=== PATIENT | male | born 1940 | race Caucasian/White ===

== ENCOUNTER 2016-10-04 13:47 | Inpatient (IN) ==
[2016-10-04] MEDS ORDERED: 0.9 % Sodium Chloride 1,000 ML IVC ONE (14:04)
--- NOTE | 2016-10-04 14:23 | Emergency Department Note ---
Disposition Clinical Impression: Atrial fibrillation with RVR, GUILLAUME (acute kidney injury), Elevated troponin Diarrhea Qualifiers: Diarrhea type: unspecified type Qualified Code(s): R19.7 - Diarrhea, unspecified Disposition: Admitted As Inpatient Condition: Good Chest Pain HPI - General Chief Complaint: ED Chest Pain Stated Complaint: a-fib with RVR Time Seen by Provider: 10/04/16 13:54 Source: patient, family Limitations: no limitations Vital Signs Reviewed: Yes Nursing Notes Reviewed: Yes - History of Present Illness Severity scale (1-10): 0 - Related Data Home Medications Medication Instructions Recorded Confirmed Allopurinol [Zyloprim 300 MG] 300 mg PO DAILY 12/01/15 10/04/16 Aspirin 81 mg PO DAILY 12/01/15 10/04/16 Furosemide [Lasix] 40 mg PO DAILY 12/01/15 10/04/16 Lisinopril [Zestril] 20 mg PO DAILY 12/01/15 10/04/16 Warfarin [Coumadin] 3 mg PO MOWEFR 12/01/15 10/04/16 Albuterol Sulfate [Proair Hfa] 2 puff IH Q4H PRN 10/04/16 10/04/16 Amiodarone [Cordarone] 200 mg PO DAILY 10/04/16 10/04/16 Fluticasone/Salmeterol [Advair Hfa 2 puff IH BID 10/04/16 10/04/16 115-21 Mcg Inhaler] Metoprolol Succinate 100 mg PO DAILY 10/04/16 10/04/16 Oxygen 2 l NS AD 10/04/16 10/04/16 Tramadol HCl [Ultram] 50 mg PO Q6H PRN 10/04/16 10/04/16 Warfarin [Coumadin] 1.5 mg PO SUTUTHSA 10/04/16 10/04/16 Allergies Allergy/AdvReac Type Severity Reaction Status Date / Time No Known Allergies Allergy Verified 09/13/16 00:44 Chest Pain PMH - Past Medical History Medical history: Reports: atrial fibrillation, COPD, CVA, DVT, hyperlipidemia, hypertension, myocardial infarction Surgical history: Reports: pacemaker/AICD Psychiatric history: Reports: no psych history - Social History Smoking Status: Former smoker Alcohol use: Reports: none Drug use: Reports: none Physical Exam - General Limitations: no limitations Course Vital Signs Temperature 99.1 F 10/04/16 13:57 Pulse Rate 164 10/04/16 13:57 Respiratory Rate 24 10/04/16 13:57 Blood Pressure 99/79 10/04/16 13:57 O2 Sat by Pulse Oximetry 97 10/04/16 13:57 Temperature 99.1 F 10/04/16 13:57 Pulse Rate 101 10/04/16 15:20 Respiratory Rate 20 10/04/16 15:20 Blood Pressure 92/68 10/04/16 15:20 O2 Sat by Pulse Oximetry 99 10/04/16 14:50 Oxygen Delivery Oxygen Delivery Nasal Cannula Chest Pain - MDM Narrative Medical decision making narrative: I examined this patient and my medical decision-making was reviewed with the SIGN LANGUAGE TEACHER/PA/Advanced Practice Nurse/Resident Physician. I agree with the documented findings, disposition and treatment plan as described except to the extent set forth below. Patient presents today from cardiology's office, he sees been feeling a little strange last couple days but denies any true chest pain. When he got to the cardiology office they noted him to was in A. fib with RVR. He has had a history of A. fib in the past. He is on medications for that. He does note that he has been having some diarrhea recently's I wonder if some of his medications or passing through quickly and not being absorbed especially since her sustained release. Were going to place an IV check his chest x-ray which was done in the outpatient setting start him on Cardizem here to see if we can slow down his heart rate repeat an EKG then he will need admission. Patient's in agreement with this plan. 1450 hrs.: Patient had EKG performed that shows atrial fibrillation rate is 151 QRS is 96 QTc is 364 no signs of acute distress ischemia comparison EKG had done in 2017 that in August and shows no changes except for rate except then he was having PVCs in a sinus rhythm. 1500 hrs.: Patient had some infiltration of his Cardizem into his IV site on the right. Nurses stopped the infusion restarted an IV on the left side is tolerating that well. She spoke with pharmacy and they said elevate the arm and put cool compresses on the area. Patient has no bleeding no other signs of trauma does compartments are soft on that arm and neurovascular is intact. 1551 hrs.: Repeat EKG, shows atrial fibrillation, rate is 98, 2 PVCs, QRS 104, QTC 410, low voltage throughout, no acute changes compared to the last except for rate. 1600 hrs.: Hospitalist accepted the patient. Patient still has atrial fib but has a slower rate with Cardizem. Patient's critical care time exclusive separately billable procedures is 30 minutes. - Lab Data Result diagrams: 10/04/16 15:04 10/04/16 14:18 Lab Results 10/04/16 10/04/16 10/04/16 Range/Units 14:18 14:18 14:18 WBC (4.3-11.1) K/mcL RBC (4.19-5.50) M/mcL Hgb (12.9-16.9) g/dL Hct (37.5-50.1) % MCV (83.0-100.0) fL MCH (28.0-33.3) pg MCHC (31.6-35.5) g/dL RDW (11.5-14.5) % Plt Count (140-400) K/mcL MPV (9.4-12.4) fL Immature Gran % (0-4) % Seg Neutrophils % % Lymphocytes % % Monocytes % % Eosinophils % % Basophils % % Neutrophils # (1.6-8.9) K/mcL Lymphocytes # (0.6-4.6) K/mcL Monocytes # (0.0-1.3) K/mcL Eosinophils # (0.0-0.6) K/mcL Basophils # (0.0-0.2) K/mcL PT 48.8 H* (9.4-12.1) Seconds INR 4.3 APTT 40.1 H (26.0-36.0) Seconds Sodium 144 (136-145) mEq/L Potassium 4.4 (3.5-4.5) mEq/L Chloride 104 (98-109) mEq/L Carbon Dioxide 31 H (19-29) mEq/L BUN 71 H (8-26) mg/dL Creatinine 2.16 H (0.72-1.25) mg/dL Est GFR ( Amer) 36 L (> 60) Est GFR (Non-Af Amer) 30 L (> 60) BUN/Creatinine Ratio 33 H (6-26) Glucose 110 H (70-99) mg/dL Calculated Osmolality 319 H (280-300) Calcium 9.2 (8.6-10.8) mg/dL Troponin I (0-0.03) ng/mL B-Natriuretic Peptide 1675 H (0-100) pg/mL Specimen Rejected 10/04/16 10/04/16 10/04/16 Range/Units 14:18 14:18 15:04 WBC 11.8 H (4.3-11.1) K/mcL RBC 4.32 (4.19-5.50) M/mcL Hgb 14.4 (12.9-16.9) g/dL Hct 44.8 (37.5-50.1) % MCV 103.7 H D (83.0-100.0) fL MCH 33.3 (28.0-33.3) pg MCHC 32.1 (31.6-35.5) g/dL RDW 14.0 (11.5-14.5) % Plt Count 121 L (140-400) K/mcL MPV 11.7 (9.4-12.4) fL Immature Gran % 0.3 (0-4) % Seg Neutrophils % 78.3 % Lymphocytes % 11.3 % Monocytes % 9.5 % Eosinophils % 0.3 % Basophils % 0.3 % Neutrophils # 9.2 H (1.6-8.9) K/mcL Lymphocytes # 1.3 (0.6-4.6) K/mcL Monocytes # 1.1 (0.0-1.3) K/mcL Eosinophils # 0.0 (0.0-0.6) K/mcL Basophils # 0.0 (0.0-0.2) K/mcL PT (9.4-12.1) Seconds INR APTT (26.0-36.0) Seconds Sodium (136-145) mEq/L Potassium (3.5-4.5) mEq/L Chloride (98-109) mEq/L Carbon Dioxide (19-29) mEq/L BUN (8-26) mg/dL Creatinine (0.72-1.25) mg/dL Est GFR ( Amer) (> 60) Est GFR (Non-Af Amer) (> 60) BUN/Creatinine Ratio (6-26) Glucose (70-99) mg/dL Calculated Osmolality (280-300) Calcium (8.6-10.8) mg/dL Troponin I 0.05 H* (0-0.03) ng/mL B-Natriuretic Peptide (0-100) pg/mL Specimen Rejected MCV Delta
[2016-10-04 14:34] LABS: Activated Partial Thrombo Time 40.1 Seconds (26.0-36.0)
[2016-10-04 14:37] LABS: INR 4.3
--- NOTE | 2016-10-04 14:37 | Emergency Department Note ---
Disposition Clinical Impression: Atrial fibrillation with RVR, GUILLAUME (acute kidney injury), Elevated troponin Diarrhea Qualifiers: Diarrhea type: unspecified type Qualified Code(s): R19.7 - Diarrhea, unspecified Disposition: Admitted As Inpatient Condition: Good Referrals: NO,PCP [Non-Partnered Physician] - Forms: ED Satisfaction Letter General Adult HPI - General Stated complaint: a-fib with RVR Time Seen by Provider: 10/04/16 13:54 Source: patient, family Limitations: no limitations Nursing Notes Reviewed: Yes Vital Signs Reviewed: Yes - History of Present Illness HPI Narrative: Patient sent from cardiology laboratory is getting his pacemaker interrogated. Patient's heart rate was 170s to 180s and A. fib RVR. Patient has been experiencing shortness of breath and fatigue for the last 5 days. Worse with walking. Patient is associated diarrhea. No abdominal pain. No blood or melanotic stools. No fevers. No chest pain. Pain Scale: 0 - Related Data Home Medications Medication Instructions Recorded Confirmed Allopurinol [Zyloprim 300 MG] 300 mg PO DAILY 12/01/15 12/01/15 Aspirin 81 mg PO DAILY 12/01/15 12/01/15 Carvedilol [Coreg] 25 mg PO BID 12/01/15 12/01/15 Furosemide [Lasix] 40 mg PO DAILY 12/01/15 12/01/15 Lisinopril [Zestril] 20 mg PO DAILY 12/01/15 12/01/15 Warfarin [Coumadin] 3 mg PO 1800 12/01/15 12/01/15 Allergies Allergy/AdvReac Type Severity Reaction Status Date / Time No Known Allergies Allergy Verified 09/13/16 00:44 Review of Systems: CONSTITUTIONAL: Weakness, fatigue No weight loss, fever, chills HEENT: Eyes: No visual changes. Ears, Nose, Throat: No hearing loss, difficulty talking or unable to swallow. SKIN: No rash or itching. CARDIOVASCULAR: No chest pain, chest pressure or chest discomfort. No palpitations or edema. RESPIRATORY: Shortness of breath No cough or sputum. GASTROINTESTINAL: No anorexia, nausea, vomiting or diarrhea. No abdominal pain or blood. GENITOURINARY: No burning on urination or hematuria. NEUROLOGICAL: No headache, dizziness, syncope, paralysis, ataxia, numbness or tingling in the extremities. No change in bowel or bladder control. MUSCULOSKELETAL: No muscle pain, back pain, joint pain or stiffness. Past Medical History - Past Medical History Medical history: Reports: atrial fibrillation, COPD, CVA, DVT, hyperlipidemia, hypertension, myocardial infarction Surgical history: Reports: pacemaker/AICD Psychiatric history: Reports: no psych history - Social History Smoking Status: Former smoker Smokeless Tobacco Status: No Alcohol use: Reports: none Drug use: Reports: none Physical Exam General appearance: NAD, conversant Eyes: anicteric sclerae, moist conjunctivae; PERRL HENT: Atraumatic; oropharynx clear with moist mucous membranes and no mucosal ulcerations Neck: Normal inspection; Trachea midline; FROM, supple Lungs: CTA, with normal respiratory effort and no intercostal retractions CV: Irregular tachycardic Abdomen: Soft, non-tender; no rebound or gaurding Extremities: No peripheral edema or extremity lymphadenopathy Skin: Normal temperature; no rash, ulcers or lesions Psych: Appropriate mood and affect Neuro: alert and oriented to person, place and time - General Limitations: no limitations Course - Reevaluation(s) Reevaluation #1: Chest x-ray was done prior to arrival in the emergency department and is read as stable cardiomegaly no other acute process. No pulmonary vascular congestion. Patient has an elevated troponin and BNP in the setting of acute kidney injury. Which is also in the setting of diarrhea. Patient will get fluids on him as well as his Cardizem and be admitted to the hospital. - Consultations Consultation #1: Discussed with Dr. Love. Patient accepted for admission. Time: 15:48 Vital Signs Temperature 99.1 F 10/04/16 13:57 Pulse Rate 164 10/04/16 13:57 Respiratory Rate 24 10/04/16 13:57 Blood Pressure 99/79 10/04/16 13:57 O2 Sat by Pulse Oximetry 97 10/04/16 13:57 Temperature 99.1 F 10/04/16 13:57 Pulse Rate 101 10/04/16 15:20 Respiratory Rate 20 10/04/16 15:20 Blood Pressure 92/68 10/04/16 15:20 O2 Sat by Pulse Oximetry 99 10/04/16 14:50 Oxygen Delivery Oxygen Delivery Nasal Cannula Medical Decision Making - Lab Data Result diagrams: 10/04/16 15:04 10/04/16 14:18 Lab Results 10/04/16 10/04/16 10/04/16 Range/Units 14:18 14:18 14:18 WBC (4.3-11.1) K/mcL RBC (4.19-5.50) M/mcL Hgb (12.9-16.9) g/dL Hct (37.5-50.1) % MCV (83.0-100.0) fL MCH (28.0-33.3) pg MCHC (31.6-35.5) g/dL RDW (11.5-14.5) % Plt Count (140-400) K/mcL MPV (9.4-12.4) fL Immature Gran % (0-4) % Seg Neutrophils % % Lymphocytes % % Monocytes % % Eosinophils % % Basophils % % Neutrophils # (1.6-8.9) K/mcL Lymphocytes # (0.6-4.6) K/mcL Monocytes # (0.0-1.3) K/mcL Eosinophils # (0.0-0.6) K/mcL Basophils # (0.0-0.2) K/mcL PT 48.8 H* (9.4-12.1) Seconds INR 4.3 APTT 40.1 H (26.0-36.0) Seconds Sodium 144 (136-145) mEq/L Potassium 4.4 (3.5-4.5) mEq/L Chloride 104 (98-109) mEq/L Carbon Dioxide 31 H (19-29) mEq/L BUN 71 H (8-26) mg/dL Creatinine 2.16 H (0.72-1.25) mg/dL Est GFR ( Amer) 36 L (> 60) Est GFR (Non-Af Amer) 30 L (> 60) BUN/Creatinine Ratio 33 H (6-26) Glucose 110 H (70-99) mg/dL Calculated Osmolality 319 H (280-300) Calcium 9.2 (8.6-10.8) mg/dL Troponin I (0-0.03) ng/mL B-Natriuretic Peptide 1675 H (0-100) pg/mL Specimen Rejected 10/04/16 10/04/16 10/04/16 Range/Units 14:18 14:18 15:04 WBC 11.8 H (4.3-11.1) K/mcL RBC 4.32 (4.19-5.50) M/mcL Hgb 14.4 (12.9-16.9) g/dL Hct 44.8 (37.5-50.1) % MCV 103.7 H D (83.0-100.0) fL MCH 33.3 (28.0-33.3) pg MCHC 32.1 (31.6-35.5) g/dL RDW 14.0 (11.5-14.5) % Plt Count 121 L (140-400) K/mcL MPV 11.7 (9.4-12.4) fL Immature Gran % 0.3 (0-4) % Seg Neutrophils % 78.3 % Lymphocytes % 11.3 % Monocytes % 9.5 % Eosinophils % 0.3 % Basophils % 0.3 % Neutrophils # 9.2 H (1.6-8.9) K/mcL Lymphocytes # 1.3 (0.6-4.6) K/mcL Monocytes # 1.1 (0.0-1.3) K/mcL Eosinophils # 0.0 (0.0-0.6) K/mcL Basophils # 0.0 (0.0-0.2) K/mcL PT (9.4-12.1) Seconds INR APTT (26.0-36.0) Seconds Sodium (136-145) mEq/L Potassium (3.5-4.5) mEq/L Chloride (98-109) mEq/L Carbon Dioxide (19-29) mEq/L BUN (8-26) mg/dL Creatinine (0.72-1.25) mg/dL Est GFR ( Amer) (> 60) Est GFR (Non-Af Amer) (> 60) BUN/Creatinine Ratio (6-26) Glucose (70-99) mg/dL Calculated Osmolality (280-300) Calcium (8.6-10.8) mg/dL Troponin I 0.05 H* (0-0.03) ng/mL B-Natriuretic Peptide (0-100) pg/mL Specimen Rejected MCV Delta
[2016-10-04 14:39] LABS: Prothrombin Time 48.8 Seconds (9.4-12.1)
[2016-10-04 14:40] LABS: Calcium 9.2 mg/dL (8.6-10.8); Potassium 4.4 mEq/L (3.5-4.5)
[2016-10-04] MEDS ORDERED: Aspirin 81 MG TAB.CHEW PO ONE (15:05)
[2016-10-04 15:10] LABS: Basophils % 0.3 %; Eosinophils % 0.3 %; Hematocrit 44.8 % (37.5-50.1); Hemoglobin 14.4 g/dL (12.9-16.9); Immature Granulocytes % 0.3 % (0-4); Lymphocytes # 1.3 K/mcL (0.6-4.6); Lymphocytes % 11.3 %; Mean Corpuscular HGB Conc 32.1 g/dL (31.6-35.5); Mean Corpuscular Hemoglobin 33.3 pg (28.0-33.3); Mean Corpuscular Volume 103.7 fL (83.0-100.0); Mean Platelet Volume 11.7 fL (9.4-12.4); Monocytes # 1.1 K/mcL (0.0-1.3); Monocytes % 9.5 %; Neutrophils # 9.2 K/mcL (1.6-8.9); Platelet Count 121 K/mcL (140-400); Red Blood Count 4.32 M/mcL (4.19-5.50); Segmented Neutrophils % 78.3 %
[2016-10-04] MEDS ORDERED: Naloxone 0.4 MG/ML INJ IVP PRN (17:33)
[2016-10-04] MEDS ORDERED: traMADol 50 MG TABLET PO PRN (17:37)
[2016-10-04] MEDS ORDERED: 0.9 % Sodium Chloride 1,000 ML IVC SCH (17:45)
[2016-10-04] MEDS ORDERED: Warfarin perPT PO PRN (18:00)
[2016-10-04] MEDS ORDERED: Albuterol 2.5 MG/3 ML NEBULIZER IH PRN (18:37)
--- NOTE | 2016-10-04 18:43 | Internal Med History&Physical ---
<Aubree Banks - Last Filed: 10/04/16 19:07> Date of Encounter: 10/04/16 Time of Encounter: 18:00 Assessment and Plan (1) Atrial fibrillation with RVR Current visit: Yes Status: Acute has hx of Afib- pacemaker was recently started on amiodarone per cardiology He preseneted in Afib RVR - presently rate is controlled we will continue with cardizem gtt, continue with amiodarone and metoprolol 2 consult cardiology 3 continuos cardiac monitoring 4 continue with Coumadin INR 4.3 pharmacy to dose (2) HTN (hypertension) Current visit: Yes Status: Acute presently stable We will hold lisinopril for DT elevated creatinine we will resume once back to baseline 2 continue with lasix Qualifiers: Hypertension type: essential hypertension Qualified Code(s): I10 - Essential (primary) hypertension (3) GUILLAUME (acute kidney injury) Current visit: Yes Status: Acute 1 patient's creatinine is 2.16 baseline is around 0.9. Patient has history of systolic heart failure EF of 25%. He has been experiencing weight gain and shortness of breath. We will give IV Lasix and monitor creatinine 2 intake output daily weights Feliciano catheter 3 avoid nephrotoxins (4) CHF (congestive heart failure) Current visit: Yes Status: Acute 1 patient has history of systolic heart failure EF 25%. His been taking only Lasix daily and he has been parenting increase lower extremity swelling and shortness of breath or orthopnea. BNP 1625 We will continue with IV Lasix 2 monitor intake and output daily weights 3 fluid restriction-low sodium diet Qualifiers: Congestive heart failure type: systolic Congestive heart failure chronicity : acute on chronic Qualified Code(s): I50.23 - Acute on chronic systolic ( congestive) heart failure (5) DVT prophylaxis Current visit: Yes Status: Acute 1 she is on Coumadin will continue 2 ARGENIS obando Internal Medicine - H&P: HPI Chief complaint: Dyspnea Admitted From: Emergency Dept Plans for Post Hospital Care: Home History of present illness: Mr. Bartlett is a 76 year old male past medical history of systolic heart failure atrial fibrillation MRI AICD placement hypertension. According to the patient for the past week he has been experiencing increasing shortness of breath as well as palpitations during exertion. He normally uses oxygen as needed however over the past week he requires 2 L nasal cannula throughout the day. He has had increased swelling to his lower extremities bilaterally and orthopnea. He denies any cough fevers chills nausea vomiting he has been experiencing diarrhea proximally 2-3 stools daily for the past 4-5 days. He took a laxative several days ago and has not stopped moving his bowels since. According to patient's son patient had an episode last night where he was very short of breath and pale diaphoretic with some mild chest pain which did resolve on own. Today he presented to outpatient cardiology clinic to have pacemaker interrogated and was noted to have heart rate 170s to 180s. He went to the ER for evaluation. Upon arrival to ER heart rate was 151 patient was given 20 of IV Cardizem and started on a Cardizem drip heart rate did slow down to 96. Lab work was obtained which did reveal creatinine at 2.16 troponin was 0.05 BNP 1675. His blood pressure was 99/79 he was given IV fluid bolus. He has been admitted for further work up evaluation. Presently patient appears to be in some slight respiratory distress during exertion. Rate is 80-90 on the monitor atrial fibrillation. Oxygen saturation 9394% 2 L nasal cannula. Lungs sounds are clear heart sounds S1-S2 irregular rate no rubs clicks gallops murmurs noted. He does have edema to lower strength bilaterally. I reviewed this case with Dr. Dueñas who agrees with plan. Past Med Surg Social Fam HX - Past Medical History Medical history: atrial fibrillation, COPD, CVA, DVT, hyperlipidemia, hypertension, myocardial infarction Psychiatric history: no psych history - Past Surgical History Surgical History: pacemaker/AICD - Social History Smoking Status: Former smoker Smokeless Tobacco Status: No Alcohol use: none Drug use: none - Family History Mother Living Status: Still Living Cause of : heart disease Internal Medicine - H&P: Meds Allopurinol [Zyloprim 300 MG] 300 mg PO DAILY 12/01/15 [History] Aspirin 81 mg PO DAILY 12/01/15 [History] Furosemide [Lasix] 40 mg PO DAILY 12/01/15 [History] Lisinopril [Zestril] 20 mg PO DAILY 12/01/15 [History] Warfarin [Coumadin] 3 mg PO MOWEFR 12/01/15 [History] Albuterol Sulfate [Proair Hfa] 2 puff IH Q4H PRN 10/04/16 [History] Amiodarone [Cordarone] 200 mg PO DAILY 10/04/16 [History] Fluticasone/Salmeterol [Advair Hfa 115-21 Mcg Inhaler] 2 puff IH BID 10/04/16 [ History] Metoprolol Succinate 100 mg PO DAILY 10/04/16 [History] Oxygen 2 l NS AD 10/04/16 [History] Tramadol HCl [Ultram] 50 mg PO Q6H PRN 10/04/16 [History] Warfarin [Coumadin] 1.5 mg PO SUTUTHSA 10/04/16 [History] Allergies No Known Allergies Allergy (Verified 09/13/16 00:44) All Systems PM: A 10-system review of systems was performed and is negative for pertinent findings except as documented above in the HPI. - Constitutional Constitutional: fatigue, weakness, weight gain, no chills, no fever(s), no night sweats - EENT Eyes: no change in vision, no discharge, no pain, no photophobia Ears: no ear discharge, no ear pain, no tinnitus Nose, mouth and throat: no dysphagia, no nasal discharge, no neck pain, no sore throat - Cardiovascular Cardiovascular ROS IM: dyspnea, dyspnea on exertion, edema, irregular heart rhythm, lightheadedness, palpitations - Respiratory Respiratory: dyspnea on exertion, no cough, no dyspnea, no wheezing, no excessive phlegm production - Gastrointestinal Gastrointestinal: no abdominal pain, no diarrhea, no hematemesis, no hematochezia, no melena, no nausea, no vomiting - Musculoskeletal Musculoskeletal ROS IM: no numbness, no tingling - Integumentary Integumentary IM: no rash, no unusual bruising - Neurological Neurological ROS: no confusion, no convulsions, no focal weakness, no numbness, no tingling, no tremor(s) - Hematologic/Lymphatic Hematologic/Lymphatic: no easy bruising - Constitutional Vitals: Temp Pulse Resp BP Pulse Ox 98 F 85 18 76/59 91 10/04/16 17:38 10/04/16 17:38 10/04/16 17:38 10/04/16 17:38 10/04/16 17:38 General appearance: Present: mild distress, A&O X 3, answers questions appropriately - Head Head exam: Present: atraumatic, normocephalic - Eye Eye exam: Present: PERRL, conjuntiva pink, sclera anicteric Pupils: Present: PERRL - Neck Neck exam general surgery: Present: supple, trachea midline. Absent: lymphadenopathy - Respiratory Respiratory exam: Present: CTAB. Absent: accessory muscle use, rales, rhonchi, wheezes - Cardiovascular Cardiovascular exam: Present: RRR, +S1, +S2. Absent: diastolic murmur, gallop, rubs, systolic murmur - GI/Abdominal GI/Abdominal exam: Present: normal bowel sounds, soft, no peritoneal signs. Absent: distended, tenderness - Extremities Exam Extremities exam: Present: pedal edema, warm, radial pulses palpable and symetrical. Absent: calf tenderness, cyanotic - Neurological Exam Neurological exam: Present: CN II-XII intact, oriented X3, no focal deficits. Absent: pronater drift, facial droop, speech deficit - Skin Skin exam: Present: dry, intact Internal Med - H&P Results - Labs CBC & Chem 7: 10/04/16 15:04 10/04/16 14:18 - EKG Data EKG comments: 10/04/16 18:54 atrial fibrillation- Afib RVR <Devin Campbell - Last Filed: 10/04/16 19:21> Date of Encounter: 10/04/16 Internal Medicine - H&P: HPI History of present illness: Mr. Bartlett is a 76 year old male Past Med Surg Social Fam HX - Family History Mother Living Status: Still Living Cause of : heart disease Father Living Status: Age at : 78 Cause of : heart Hx Family Cardiac Disorders: Yes All Systems PM: A 10-system review of systems was performed and is negative for pertinent findings except as documented above in the HPI. - Constitutional Vitals: Temp Pulse Resp BP Pulse Ox 98 F 85 18 76/59 91 10/04/16 17:38 10/04/16 17:38 10/04/16 17:38 10/04/16 17:38 10/04/16 17:38 Internal Med - H&P Results - Labs CBC & Chem 7: 10/04/16 15:04 10/04/16 14:18 - Attending Attestation I examined this patient and my medical decision-making was reviewed with the [employer] MAKER/PA/Advanced Practice Nurse/Resident Physician. I agree with the documented findings, disposition and treatment plan as described except to the extent set forth below. Mr. Rosendo Bartlett is a 76-year-old male with a past medical history of CHF systolic dysfunction, hypertension, cardiomyopathy, chronic atrial fibrillation , coronary artery disease and COPD on home oxygen at 2 L nasal cannula. He presented to the ED from an outpatient cardiology for tachycardia. Patient was at cardiology to get his pacemaker interrogated. He was advised to go to the ER. Patient was examined around 6:30 PM today. Patient is awake and alert and he is able to provide history. His two sons are also in the room and provide history. According to son patient has been having shortness of breath and generalized weakness for the past 1 week. Symptoms seem to be gradually worsening. Patient has also been having worsening of his lower leg edema. In the ED patient was found to have atrial fibrillation with RVR. He was started on IV Cardizem. Patient takes warfarin at home and his INR is currently supra therapeutic. Patient had an chest x-ray as well done this morning which did not show any acute cardiopulmonary process. Patient's troponin is also elevated and his BNP is also elevated. He is being admitted for atrial fibrillation with RVR and also acute exacerbation of chronic systolic dysfunction with LVEF of 25%. Patient will be on fluid restriction, obesity and strict I's and O's and will obtain daily weights. Patient is on IV Lasix 40 mg daily. We will hold his Coumadin because INR is supratherapeutic. Patient also seems to have acute kidney injury likely due to acute CHF exacerbation. Cardiology has been counsulted and they are aware about the patient's condition. Patient will be continued on IV Cardizem. We will continue monitoring closely. I have explained to patient and his family members about his guarded condition, guarded prognosis and plan of care. They agreed to have no unanswered questions. CODE STATUS full code. Heart rate is currently between 101 20 and blood pressure is 106/70. O2 sat is 95% on 2 L nasal cannula. Heart: s1s2+ systolic murmur+, Lungs: b/l good air entry with mild rales in both bases, Abd: soft, non-tender
[2016-10-04] MEDS: Furosemide 40 MG/4 ML VIAL IVP SCH (20:02)
[2016-10-04] MEDS: Budesonide/Formoterol 80/4.5 MDI IH SCH (22:10)
[2016-10-05 03:23] LABS: Basophils % 0.3 %; Eosinophils # 0.1 K/mcL (0.0-0.6); Eosinophils % 1.2 %; Hematocrit 42.1 % (37.5-50.1); Hemoglobin 13.3 g/dL (12.9-16.9); Immature Granulocytes % 0.3 % (0-4); Lymphocytes # 1.3 K/mcL (0.6-4.6); Lymphocytes % 12.8 %; Mean Corpuscular HGB Conc 31.6 g/dL (31.6-35.5); Mean Corpuscular Hemoglobin 32.8 pg (28.0-33.3); Mean Corpuscular Volume 103.7 fL (83.0-100.0); Mean Platelet Volume 11.6 fL (9.4-12.4); Monocytes # 1.1 K/mcL (0.0-1.3); Monocytes % 11.2 %; Neutrophils # 7.3 K/mcL (1.6-8.9); Platelet Count 132 K/mcL (140-400); Red Blood Count 4.06 M/mcL (4.19-5.50); Red Cell Distribution Width 13.8 % (11.5-14.5); Segmented Neutrophils % 74.2 %
[2016-10-05 03:40] LABS: Prothrombin Time 45.3 Seconds (9.4-12.1)
[2016-10-05 03:42] LABS: Calcium 8.4 mg/dL (8.6-10.8); Potassium 4.2 mEq/L (3.5-4.5)
[2016-10-05] MEDS: Aspirin 81 MG TAB.CHEW PO SCH (08:45)
[2016-10-05] MEDS: Metoprolol XL (24 HR) Succ 50 MG TAB.ER.24H PO SCH (08:45)
[2016-10-05] MEDS: Furosemide 40 MG/4 ML VIAL IVP SCH ×2 (08:56→17:57)
[2016-10-05] MEDS ORDERED: *HR* Amiodarone 200 MG TABLET PO SCH (09:00)
[2016-10-05] MEDS ORDERED: Metoprolol XL (24 HR) Succ 50 MG TAB.ER.24H PO SCH (09:00)
--- NOTE | 2016-10-05 09:02 | Electrocardiograph Report ---
[address] [place], [place] [address] Test Date: 2016-10-04 Pat Name: Rosendo Bartlett Department: 104 Room: [facility] Gender: M Utilities Service Investigator: AM : 1940 Requested By: Trino Santana Order Number: [id number] Reading MD: Hardik Sheppard MD Measurements Intervals [place] Rate: 151 P: NC: 0 QRS: 49 QRSD: 96 T: 90 QT: 278 QTc: 364 Interpretive Statements ATRIAL FIBRILLATION WITH RAPID VENTRICULAR RESPONSE LOW QRS VOLTAGE IN EXTREMITY LEADS LATERAL ISCHEMIA Electronically Signed On 10-05-2016 9:01:21 EDT by Hardik Sheppard MD
--- NOTE | 2016-10-05 09:41 | Internal Med Progress Note ---
<Ayaz Black - Last Filed: 10/05/16 10:38> Date of Encounter: 10/05/16 Time of Encounter: 09:32 - Assessment and plan (1) Systolic CHF, acute on chronic Current Visit: Yes Status: Acute Assessment and plan: Mr. Bartlett 76-year-old male with a known history of left ventricular systolic dysfunction with an LVEF of 25% with his last echocardiogram completed on 2016, that also demonstrated severe dilated right atrium, severely dilated left atrium, moderate mild mitral regurgitation, and severe tricuspid regurgitation the setting of mild pulmonary hypertension with an estimated RVSP of 40. - He presented in atrial fibrillation with rapid ventricular rate in the setting of systolic heart failure exacerbation. His admitting BNP was 1675 with elevated troponins of 0.05-0.05 and 0.04. - Mr. Bartlett states that he is compliant with his home medications but has not had a consistent diet in the last couple weeks. - Physical exam findings demonstrate 1+ pitting edema in the bilateral lower extremities and trace edema in his mid to lower back bilaterally with abdominal fullness. - Currently positive fluid balance. Plan: - Continue 1.5 L fluid restrictions, 2 g sodium restricted diet - Continue daily I's and O's, standing daily weight - Continue diuresis with Lasix 40 mg IV BID - Continue to optimize cardiac medications including aspirin, Toprol-XL 100 mg by mouth daily - Rate control with diltiazem drip in the setting of Toprol-XL and amiodarone 200 mg daily. (2) Atrial fibrillation with RVR Current Visit: Yes Status: Acute Assessment and plan: Mr. Bartlett 76-year-old male with chronic history of atrial fibrillation on warfarin therapy for anticoagulation and rate control with Toprol-XL and amiodarone. - Rapid ventricular rate in the setting of acute systolic heart failure exacerbation. - Dyspnea likely secondary to systolic heart failure exacerbation in correlation with rapid ventricular rate and diminished ejection fraction. Plan: -Continue rate control with Cardizem drip currently at 10 ML's per hour, continue home dose of Toprol-XL and amiodarone. - We will be important for adequate diuresis and a negative fluid balance. - Continue cardiac monitoring with a goal heart rate below 110 bpm. - Cardiology following the patient, recommendations appreciated. (3) GUILLAUME (acute kidney injury) Current Visit: Yes Status: Acute (4) Elevated troponin Current Visit: Yes Status: Acute Assessment and plan: Patient has elevated troponins at 0.05, 0.05 and 0.04 in the setting of systolic heart failure with an EF of 25% and atrial fibrillation with rapid ventricular rate. - Suspect elevation troponin secondary to rapid ventricular rate and demand/ supply mismatch. - Patient is without chest pain, chest pressure. EKG is reviewed. Plan: - Continue with rate control. (5) HTN (hypertension) Current Visit: Yes Status: Acute Assessment and plan: Patient has a history of hypertension, currently blood pressures are stable. - Continue to hold lisinopril in the setting of acute kidney injury. (6) Supratherapeutic INR Current Visit: Yes Status: Acute Assessment and plan: Patient's INR is 4.0. Patient takes warfarin therapy in the setting of atrial fibrillation. Goal INR is 2-3. Plan: - Hold warfarin until INR is below 3.0 (7) Acute kidney injury Current Visit: Yes Status: Acute Assessment and plan: Patient demonstrates acute kidney injury with a creatinine 1.86 down from 2.16 yesterday. GFR currently 36. Baseline creatinine 0.9 and GFR greater than 60. - Likely secondary to systolic heart failure and atrial fibrillation with RVR perpetuating prerenal GUILLAUME. - Acute kidney injury improving with rate control. Plan: Optimize rate control and decrease cardiac preload. - Avoid nephrotoxic medications and renally dose antibiotics as necessary. - Daily BMP to monitor electrolytes and renal function the setting of diuresis and acute kidney injury. - Subjective Interval history: Mr. Bartlett has been seen and evaluated the patient bedside this morning. Is alert and awake in no acute distress. He says he feels improved compared to yesterday after receiving IV Lasix and starting rate control. He denies any diarrhea, fevers, chills, night sweats, chest pain, chest pressure, abdominal pain or difficulty with urination. He does have some shortness of breath which she says is improved but not completely resolved. - Constitutional Vitals: Temp Pulse Resp BP Pulse Ox 97.6 F 157 22 123/86 96 10/05/16 07:13 10/05/16 07:13 10/05/16 07:13 10/05/16 07:13 10/05/16 05:01 General appearance: Present: mild distress, A&O X 3, answers questions appropriately Exam: General: Patient alert, awake, oriented 3, interactive, in no acute distress HEENT: Normocephalic, atraumatic, pupils equal reactive to light, nasal cavity patent and open septum median position, oral mucosa moist, uvula midline, neck supple trachea midline no palpable lymphadenopathy, no thyromegaly. Chest: Symmetric bilateral correlating with respiratory effort, effort mildly labored. Cardiac: Irregularly irregular rhythm with rapid ventricular rate, no bruits appreciated bilateral carotids, Radial pulses 2+ bilateral, posterior tibial and dorsal pedal pulses 2+ bilateral. Respiratory: Rhonchi appreciated diffusely in bilateral lung acosta. Abdomen: Soft, tympanic in epigastric region, distended, positive bowel sounds, no palpable masses appreciated on examination. Nontender to palpation Extremities: Symmetric bilateral, bilateral 1+ pitting edema with edema up to mid back bilateral, patient moving all 4 extremities spontaneously. Neurologic: No focal deficits appreciated on examination. Face symmetric, muscle strength symmetric bilateral upper and lower extremities. Internal Medicine: Result - Labs CBC & Chem 7: 10/05/16 01:30 10/05/16 01:30 Labs: Short CBC 10/05/16 Range/Units 01:30 WBC 9.9 (4.3-11.1) K/mcL Hgb 13.3 (12.9-16.9) g/dL Hct 42.1 (37.5-50.1) % Plt Count 132 L (140-400) K/mcL Neutrophils # 7.3 (1.6-8.9) K/mcL BMP 10/05/16 01:30 Sodium 143 Potassium 4.2 Chloride 105 Carbon Dioxide 29 BUN 71 H Creatinine 1.86 H Glucose 82 Calcium 8.4 L Cardiac Enzymes 10/04/16 10/05/16 Range/Units 19:58 01:30 Troponin I 0.05 H* 0.04 H* (0-0.03) ng/mL - ABG Interpretation ABG results: PT/INR, D-dimer PT 45.3 Seconds (9.4-12.1) H* 10/05/16 01:30 - VTE Documentation of Mechanical Device: Graduated compression elastic hosiery Consult Discharge Plan - Plan Referrals: Jere Kay, HAND FINISHER [Primary Care Provider] - 10/13/16 1:00 pm <Lisbeth Dias E - Last Filed: 10/05/16 14:43> Date of Encounter: 10/05/16 - Constitutional Vitals: Temp Pulse Resp BP Pulse Ox 97.5 F L 107 16 113/104 98 10/05/16 11:38 10/05/16 11:38 10/05/16 11:38 10/05/16 11:38 10/05/16 11:38 Internal Medicine: Result - Labs CBC & Chem 7: 10/05/16 01:30 10/05/16 01:30 Labs: Short CBC 10/05/16 Range/Units 01:30 WBC 9.9 (4.3-11.1) K/mcL Hgb 13.3 (12.9-16.9) g/dL Hct 42.1 (37.5-50.1) % Plt Count 132 L (140-400) K/mcL Neutrophils # 7.3 (1.6-8.9) K/mcL BMP 10/05/16 01:30 Sodium 143 Potassium 4.2 Chloride 105 Carbon Dioxide 29 BUN 71 H Creatinine 1.86 H Glucose 82 Calcium 8.4 L Cardiac Enzymes 10/04/16 10/05/16 Range/Units 19:58 01:30 Troponin I 0.05 H* 0.04 H* (0-0.03) ng/mL - ABG Interpretation ABG results: PT/INR, D-dimer PT 45.3 Seconds (9.4-12.1) H* 10/05/16 01:30 - Attending Attestation I examined this patient and reviewed laboratory, imaging and all diagnostic data. My medical decision-making was reviewed with Dr Sofia Staton - Resident Physician. I agree with the documented findings, disposition and treatment plan as described above
--- NOTE | 2016-10-05 10:39 | Cardiology Consult Note ---
Date of Encounter: 10/05/16 Time of Encounter: 09:00 Assessment and Plan (1) Atrial fibrillation with RVR Current Visit: Yes Status: Acute This is a resident progress note pending review by attending real estate sales manager A-fib likely paroxysmal Wean Cardizem. Order placed to decrease maintaining HR <100 Continue metoprolol Conflicting information in outpatient notes whether amiodarone was started recently, pt doesn't remember starting a new medication Patient has been receiving amiodarone 200 mg in hospital, will increase to 400mg BID INR supratherapeutic, pharmacy is dosing Coumadin (2) HTN (hypertension) Current Visit: Yes Status: Acute BP stable Agree to hold lisinopril given GUILLAUME (nephro consult pending) Qualifiers: Hypertension type: essential hypertension Qualified Code(s): I10 - Essential (primary) hypertension (3) CHF (congestive heart failure) Current Visit: Yes Status: Acute Systolic CHF with EF 25% on recent echo Patient on 40mg Lasix at home, currently on 40mg IV. Agree to continue Patient admits to nonadherence to sodium / fluid restriction at home. Education provided Continue cardiac diet Qualifiers: Congestive heart failure type: systolic Congestive heart failure chronicity : acute on chronic Qualified Code(s): I50.23 - Acute on chronic systolic ( congestive) heart failure Discussion w patient/family: The assessment and plan as outlined above was discussed with the patient and/or family members who expressed understanding and agreement. All questions were answered. Thank you for involving us in the care of your patient. Please call with any questions. History of Present Illness Consult date: 10/05/16 Consult reason: New onset a. fib Chief complaint: New onset a. fib History of present illness: Mr. Bartlett is a 76 year old male with past medical history including chronic A. fib, COPD, CVA, DVT, hyperlipidemia, hypertension, DC. He was seen at outpatient cardiology clinic yesterday for pacemaker interrogation when his heart rate was noted to be in the 170s-180s. Sent to the ED where EKG showed rate and 150s with some PVCs. Cardizem was started which stabilized heart rate. At home he is on amiodarone, lisinopril, aspirin, Coumadin, metoprolol, and Lasix 40 mg daily. His troponins were 0.05, 0.04. Pharmacy is managing Coumadin, INR has been supratherapeutic most recently 4.0. BNP = 1675. Patient was seen and evaluated at bedside. He denies chest pain, shortness of breath, palpitations, or new complaints. He states that his dyspnea is still present but significantly improved relative to pre-hospital baseline. Lower extremity edema also reportedly significantly improved. Of note his heart rate was in the 150s this morning. Nurse was called and noticed his IV was malfunctioning and he was not receiving the Cardizem drip. This was corrected and heart rate decreased to low 100s. Past Med Surg Social Fam HX - Past Medical History Medical history: atrial fibrillation, COPD, CVA, DVT, hyperlipidemia, hypertension, myocardial infarction Psychiatric history: no psych history - Past Surgical History Surgical History: pacemaker/AICD - Social History Smoking Status: Former smoker Smokeless Tobacco Status: No Alcohol use: none Drug use: none - Family History Mother Living Status: Still Living Cause of : heart disease Father Living Status: Age at : 78 Cause of : heart Hx Family Cardiac Disorders: Yes Medications and Allergies Allopurinol [Zyloprim 300 MG] 300 mg PO DAILY 12/01/15 [History] Aspirin 81 mg PO DAILY 12/01/15 [History] Furosemide [Lasix] 40 mg PO DAILY 12/01/15 [History] Lisinopril [Zestril] 20 mg PO DAILY 12/01/15 [History] Warfarin [Coumadin] 3 mg PO MOWEFR 12/01/15 [History] Albuterol Sulfate [Proair Hfa] 2 puff IH Q4H PRN 10/04/16 [History] Amiodarone [Cordarone] 200 mg PO DAILY 10/04/16 [History] Fluticasone/Salmeterol [Advair Hfa 115-21 Mcg Inhaler] 2 puff IH BID 10/04/16 [ History] Metoprolol Succinate 100 mg PO DAILY 10/04/16 [History] Oxygen 2 l NS AD 10/04/16 [History] Tramadol HCl [Ultram] 50 mg PO Q6H PRN 10/04/16 [History] Warfarin [Coumadin] 1.5 mg PO SUTUTHSA 10/04/16 [History] Allergies No Known Allergies Allergy (Verified 09/13/16 00:44) All Systems Review: A 10-system review of systems was performed and is negative for pertinent findings except as documented above in the HPI. - Cardiovascular Cardiovascular: as per HPI - Respiratory Respiratory: no cough, no wheezing Physical Examination Vital Signs, Last 4 Hours Temp Pulse Resp BP 10/05/16 07:13 97.6 F 157 22 123/86 General: Conversant, No Apparent Distress Cardiac: Normal S1 and S2, No Murmur, Other (irregular rate) Lungs: Normal Breath Sounds, No Wheeze, Rales, Rhonchi Neuro: Alert and responsive Extremities: Other (1+ pitting pedal edema bilaterally) Results 10/05/16 01:30 10/05/16 01:30 Lab Results 10/04/16 10/05/16 10/05/16 19:58 01:30 01:30 WBC 9.9 Hgb 13.3 Hct 42.1 Plt Count 132 L INR Sodium Potassium Chloride Carbon Dioxide BUN Creatinine Glucose Calcium Troponin I 0.05 H* 0.04 H* 10/05/16 10/05/16 01:30 01:30 WBC Hgb Hct Plt Count INR 4.0 Sodium 143 Potassium 4.2 Chloride 105 Carbon Dioxide 29 BUN 71 H Creatinine 1.86 H Glucose 82 Calcium 8.4 L Troponin I Consult Discharge Plan - Plan Referrals: Jere Kay, SUPERVISOR CALIBRATION [Primary Care Provider] -
--- NOTE | 2016-10-05 11:14 | Electrocardiograph Report ---
[address] [place] [address] Test Date: 2016-10-04 Pat Name: Rosendo Bartlett Department: 104 Room: 2NE31 Gender: M Volleyball Referee: AM : 1940 Requested By: Trino Santana Order Number: [id number] Reading MD: Briana Dent Measurements Intervals [place] Rate: 98 P: ID: 0 QRS: 42 QRSD: 104 T: 218 QT: 355 QTc: 410 Interpretive Statements ATRIAL FIBRILLATION WITH ABERRANT CONDUCTION OR VENTRICULAR PREMATURE COMPLEXES LOW QRS VOLTAGE IN EXTREMITY LEADS POSSIBLE ANTERIOR MYOCARDIAL INFARCTION, PROBABLY OLD MODERATE T-WAVE ABNORMALITY, CONSIDER LATERAL ISCHEMIA Electronically Signed On 10-05-2016 11:12:40 EDT by Briana Dent
[2016-10-05] MEDS: Budesonide/Formoterol 80/4.5 MDI IH SCH ×2 (11:36→19:36)
--- NOTE | 2016-10-05 13:06 | Nephrology Consult Note ---
Date of Encounter: 10/05/16 Time of Encounter: 13:04 History of Present Illness - History of Present Illness This is a 76-year-old male admitted to the hospital because of a one-week history of worsening shortness of breath lower extremity swelling and not feeling well. Tuesday night the patient became even worse. 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 Apparently one of the cardiology staff check the patient's pacemaker noted his heart rate was 187 and I presume in atrial fibrillation. Patient was subsequently admitted to the hospital. Patient was noted have a creatinine of 2.16. He has no previous history of renal disease. Creatinine in August was 0.9. Patient has been experiencing worsening shortness of breath as well as orthopnea and lower extremity swelling. He does have a history of systolic congestive heart failure. Patient says he was seen by cardiology last week at that time was told that he may have had A. fib. He was to have additional testing done as an outpatient and then there was talk about starting him on amiodarone. The patient now was on a Cardizem drip. Heart rate is in the high 90s to low 100s. Patient states he feels better. Creatinine is slightly improved today down to 1.86. Patient has acute kidney injury in the setting of A. fib with RVR and acute on chronic systolic congestive heart failure. His renal function is starting to improve. Treatment consists of controlling his ventricular rate as well as treating his congestive heart failure and volume overload. I will continue with the current dose of Lasix. We will monitor the patient's renal function. I would suspect that he should continue to improve. Past Med Surg Social Fam HX - Past Medical History Medical history: atrial fibrillation, COPD, CVA, DVT, hyperlipidemia, hypertension, myocardial infarction Psychiatric history: no psych history - Past Surgical History Surgical History: pacemaker/AICD - Social History Smoking Status: Former smoker Smokeless Tobacco Status: No Alcohol use: none Drug use: none - Family History Mother Living Status: Still Living Cause of : heart disease Father Living Status: Age at : 78 Cause of : heart Hx Family Cardiac Disorders: Yes Medications and Allergies Allopurinol [Zyloprim 300 MG] 300 mg PO DAILY 12/01/15 [History] Aspirin 81 mg PO DAILY 12/01/15 [History] Furosemide [Lasix] 40 mg PO DAILY 12/01/15 [History] Lisinopril [Zestril] 20 mg PO DAILY 12/01/15 [History] Warfarin [Coumadin] 3 mg PO MOWEFR 12/01/15 [History] Albuterol Sulfate [Proair Hfa] 2 puff IH Q4H PRN 10/04/16 [History] Amiodarone [Cordarone] 200 mg PO DAILY 10/04/16 [History] Fluticasone/Salmeterol [Advair Hfa 115-21 Mcg Inhaler] 2 puff IH BID 10/04/16 [ History] Metoprolol Succinate 100 mg PO DAILY 10/04/16 [History] Oxygen 2 l NS AD 10/04/16 [History] Tramadol HCl [Ultram] 50 mg PO Q6H PRN 10/04/16 [History] Warfarin [Coumadin] 1.5 mg PO SUTUTHSA 10/04/16 [History] Allergies No Known Allergies Allergy (Verified 09/13/16 00:44) Review of Systems Constitutional: as per HPI Eyes: bilateral: blurred vision (patient denies), diplopia (patient denies) Nose, mouth and throat: no dizziness, no headache(s) Cardiovascular: dyspnea, dyspnea on exertion, edema, irregular heart rhythm Respiratory: as per HPI, dyspnea, dyspnea on exertion Gastrointestinal: no abdominal pain, no change in bowel habits Musculoskeletal: no muscle weakness, no numbness Integumentary: no hirsutism, no striae Neurological: as per HPI Psychiatric: no depression, no difficulty concentrating Endocrine: as per HPI Hematologic/Lymphatic: no easy bruising, no lymphadenopathy Exam - Vital Signs Vital signs: Initial Vital Signs Temp Pulse Resp BP Pulse Ox 99.1 F 164 24 99/79 97 10/04/16 13:57 10/04/16 13:57 10/04/16 13:57 10/04/16 13:57 10/04/16 13:57 Vital Signs - Last 8 Hours Temp Pulse Resp BP Pulse Ox 10/05/16 11:38 97.5 F L 107 16 113/104 98 10/05/16 11:36 22 96 10/05/16 07:13 97.6 F 157 22 123/86 Intake and Output 10/04/16 10/05/16 10/05/16 23:59 07:59 15:59 Intake Total 305 / 305 341.6 / 341.6 Output Total 900 / 900 Balance -595 / -595 341.6 / 341.6 Intake: IV Fluids 101.6 / 101.6 Cardizem 125 MG In 101.6 / 101.6 Dextrose 5% 100 ML @ 5 MG /HR 5 mls/hr IVC .Q24H RONDA Rx#:[id number] Oral 0 / 0 300 / 300 240 / 240 Output: Urine 900 / 900 Other: Percent of Meal Consumed 50% Weight 92.7 kg 92.8 kg Patient Weight 10/05/16 23:59 Weight 92.8 kg - General Appearance Exam: Patient is alert and oriented. He is in no acute distress. Lungs sounds otherwise clear. Heart irregular rate and rhythm consistent with atrial fibrillation. Abdomen is benign. He has 1+ lower extremity swelling. Results - Lab Results 10/05/16 01:30 10/05/16 01:30 Most recent lab results Calcium 8.4 mg/dL (8.6-10.8) L 10/05/16 01:30 Consult Discharge Plan - Plan Referrals: Jere Kay, WIRE SPIRAL BINDER [Primary Care Provider] -
[2016-10-05] MEDS: *HR* Amiodarone 200 MG TABLET PO SCH ×2 (17:45→19:47)
[2016-10-06 06:23] LABS: Basophils % 0.2 %; Eosinophils # 0.1 K/mcL (0.0-0.6); Eosinophils % 0.6 %; Hematocrit 41.6 % (37.5-50.1); Hemoglobin 13.1 g/dL (12.9-16.9); Immature Granulocytes % 0.5 % (0-4); Lymphocytes % 9.1 %; Mean Corpuscular HGB Conc 31.5 g/dL (31.6-35.5); Mean Corpuscular Hemoglobin 33.4 pg (28.0-33.3); Mean Corpuscular Volume 106.1 fL (83.0-100.0); Mean Platelet Volume 11.1 fL (9.4-12.4); Monocytes # 0.9 K/mcL (0.0-1.3); Monocytes % 8.8 %; Neutrophils # 8.6 K/mcL (1.6-8.9); Nucleated Red Blood Cells 0.2 /100 WBC (0); Platelet Count 111 K/mcL (140-400); Red Blood Count 3.92 M/mcL (4.19-5.50); Red Cell Distribution Width 14.3 % (11.5-14.5); Segmented Neutrophils % 80.8 %
[2016-10-06 06:27] LABS: INR 3.3; Prothrombin Time 36.5 Seconds (9.4-12.1)
[2016-10-06 06:40] LABS: Albumin 3.1 g/dL (3.5-5.0); Albumin/Globulin Ratio 1.1 (1.1-2.2); Bilirubin,Total 1.5 mg/dL (0.2-1.2); Calcium 8.6 mg/dL (8.6-10.8); Globulin 2.8 g/dL (2.4-3.5); Potassium 4.1 mEq/L (3.5-4.5); Total Protein 5.9 g/dL (6.0-8.3)
[2016-10-06] MEDS: Budesonide/Formoterol 80/4.5 MDI IH SCH ×2 (07:25→19:47)
--- NOTE | 2016-10-06 09:23 | Nephrology Progress Note ---
Date of Encounter: 10/06/16 Time of Encounter: 09:21 - Assessment and Plan (1) GUILLAUME (acute kidney injury) Current Visit: Yes Status: Acute Patient has acute kidney injury in the setting of A. fib with RVR as well as acute congestive heart failure. He also is demonstrating a high post void residual on his ultrasound yesterday. Went to consult urology to see if they feel he needs any definitive treatment. (2) Atrial fibrillation with RVR Current Visit: Yes Status: Acute Subjective Interval history: The patient is complaining of some lower extremity swelling. The ultrasound yesterday showed a elevated post void residual. There is no hydronephrosis. Patient's renal function today is about the same as yesterday. There is no significant improvement. Objective - Vital Signs Vital signs: Vital Signs Temp Pulse Resp BP Pulse Ox 10/06/16 07:25 18 98 10/06/16 07:12 98.4 F 86 16 113/80 98 10/06/16 04:45 98.0 F 82 15 95/65 99 10/05/16 20:07 97.6 F 82 18 90/61 97 10/05/16 19:36 17 98 10/05/16 16:26 97.5 F L 66 16 98/55 97 10/05/16 11:38 97.5 F L 107 16 113/104 98 10/05/16 11:36 22 96 Intake and Output 10/05/16 10/06/16 10/06/16 23:59 07:59 15:59 Intake Total 120 / 120 35 / 35 120 / 120 Output Total 80 / 80 Balance 120 / 120 35 / 35 40 / 40 Intake: IV Fluids 35 / 35 Cardizem 125 MG In 35 / 35 Dextrose 5% 100 ML @ 5 MG /HR 5 mls/hr IVC .Q24H RONDA Rx#:[id number] Oral 120 / 120 120 / 120 Output: Urine 80 / 80 Other: Meal Lunch Breakfast Percent of Meal Consumed 10% 90% # Voids 1 - General Appearance Exam: Patient is alert and oriented. He is in no acute distress. Lung are clear. Heart irregular rate and rhythm. There is 2+ lower extremity swelling. - Lab 10/06/16 05:57 10/06/16 05:57 Most recent lab results Calcium 8.6 mg/dL (8.6-10.8) 10/06/16 05:57 Magnesium 2.0 mg/dL (1.6-2.6) 10/06/16 05:57 - VTE Documentation of Mechanical Device: Graduated compression elastic hosiery Consult Discharge Plan - Plan Referrals: Jere Kay, DEEPA [Primary Care Provider] - 10/13/16 1:00 pm
[2016-10-06] MEDS: *HR* Amiodarone 200 MG TABLET PO SCH ×2 (09:41→21:04)
[2016-10-06] MEDS: Metoprolol XL (24 HR) Succ 50 MG TAB.ER.24H PO SCH (09:41)
[2016-10-06] MEDS: Sennosides/Docusate Sodium TABLET PO SCH ×2 (09:41→21:04)
[2016-10-06] MEDS: Aspirin 81 MG TAB.CHEW PO SCH (09:41)
[2016-10-06] MEDS: Furosemide 40 MG/4 ML VIAL IVP SCH (09:41)
--- NOTE | 2016-10-06 09:58 | Cardiology Consult Note ---
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 Order placed to decrease maintaining HR <100 Continue metoprolol Conflicting information in outpatient notes whether amiodarone was started recently, pt doesn't remember starting a new medication Patient has been receiving amiodarone 200 mg in hospital, will increase to 400mg BID INR supratherapeutic, pharmacy is dosing Coumadin (2) HTN (hypertension) Current Visit: Yes Status: Acute BP stable Agree to hold lisinopril given GUILLAUME (nephro consult pending) Qualifiers: Hypertension type: essential hypertension Qualified Code(s): I10 - Essential (primary) hypertension (3) CHF (congestive heart failure) Current Visit: Yes Status: Acute Systolic CHF with EF 25% on recent echo Patient on 40mg Lasix at home, currently on 40mg IV. Agree to continue Patient admits to nonadherence to sodium / fluid restriction at home. Education provided Continue cardiac diet Qualifiers: Congestive heart failure type: systolic Congestive heart failure chronicity : acute on chronic Qualified Code(s): I50.23 - Acute on chronic systolic ( congestive) heart failure Discussion w patient/family: The assessment and plan as outlined above was discussed with the patient and/or family members who expressed understanding and agreement. All questions were answered. Thank you for involving us in the care of your patient. Please call with any questions. History of Present Illness History of present illness: Mr. Bartlett is a 76 year old male Past Med Surg Social Fam HX - Past Medical History Medical history: atrial fibrillation, COPD, CVA, DVT, hyperlipidemia, hypertension, myocardial infarction Psychiatric history: no psych history - Past Surgical History Surgical History: pacemaker/AICD - Social History Smoking Status: Former smoker Smokeless Tobacco Status: No Alcohol use: none Drug use: none - Family History Mother Living Status: Still Living Cause of : heart disease Father Living Status: Age at : 78 Cause of : heart Hx Family Cardiac Disorders: Yes Medications and Allergies Allopurinol [Zyloprim 300 MG] 300 mg PO DAILY 12/01/15 [History] Aspirin 81 mg PO DAILY 12/01/15 [History] Furosemide [Lasix] 40 mg PO DAILY 12/01/15 [History] Lisinopril [Zestril] 20 mg PO DAILY 12/01/15 [History] Warfarin [Coumadin] 3 mg PO MOWEFR 12/01/15 [History] Albuterol Sulfate [Proair Hfa] 2 puff IH Q4H PRN 10/04/16 [History] Amiodarone [Cordarone] 200 mg PO DAILY 10/04/16 [History] Fluticasone/Salmeterol [Advair Hfa 115-21 Mcg Inhaler] 2 puff IH BID 10/04/16 [ History] Metoprolol Succinate 100 mg PO DAILY 10/04/16 [History] Oxygen 2 l NS AD 10/04/16 [History] Tramadol HCl [Ultram] 50 mg PO Q6H PRN 10/04/16 [History] Warfarin [Coumadin] 1.5 mg PO SUTUTHSA 10/04/16 [History] Allergies No Known Allergies Allergy (Verified 09/13/16 00:44) All Systems Review: A 10-system review of systems was performed and is negative for pertinent findings except as documented above in the HPI. Physical Examination Vital Signs, Last 4 Hours Temp Pulse Resp BP Pulse Ox 10/06/16 07:25 18 98 10/06/16 07:12 98.4 F 86 16 113/80 98 Results 10/06/16 05:57 10/06/16 05:57 Lab Results 10/06/16 10/06/16 10/06/16 05:57 05:57 05:57 WBC 10.6 Hgb 13.1 Hct 41.6 Plt Count 111 L INR 3.3 Sodium 141 Potassium 4.1 Chloride 103 Carbon Dioxide 30 H BUN 62 H Creatinine 1.81 H Glucose 105 H Calcium 8.6 Magnesium 2.0 Total Bilirubin 1.5 H AST 50 H ALT 71 H Alkaline Phosphatase 88 Consult Discharge Plan - Plan Referrals: Jere Kay, LEAF BINNER [Primary Care Provider] - 10/13/16 1:00 pm
--- NOTE | 2016-10-06 10:03 | Cardiology Progress Note ---
Date of Encounter: 10/06/16 Time of Encounter: 09:15 Assessment and Plan (1) Atrial fibrillation with RVR Current Visit: Yes Status: Acute Cardizem has been successfully weaned with stable heart rate Continue metoprolol Continue amiodarone 400mg BID Anticoagulation with Coumadin, pharmacy is dosing, INR today 3.3 (2) HTN (hypertension) Current Visit: Yes Status: Acute stable Qualifiers: Hypertension type: essential hypertension Qualified Code(s): I10 - Essential (primary) hypertension (3) CHF (congestive heart failure) Current Visit: Yes Status: Acute Systolic CHF with EF 25% on recent echo Patient on 40mg Lasix at home, currently on 40mg IV. Nephrology agrees to continue Patient admits to nonadherence to sodium / fluid restriction at home. Education provided Continue cardiac diet Qualifiers: Congestive heart failure type: systolic Congestive heart failure chronicity : acute on chronic Qualified Code(s): I50.23 - Acute on chronic systolic ( congestive) heart failure Discussion w patient/family: The assessment and plan as outlined above was discussed with the patient and/or family members who expressed understanding and agreement. All questions were answered. Thank you for involving us in the care of your patient. Please call with any questions. Subjective Principal diagnosis: a. fib Interval history: She was seen and examined at bedside this morning. He denies chest pain, shortness of breath, palpitations. Objective Vital Signs, Last 4 Hours Temp Pulse Resp BP Pulse Ox 10/06/16 07:25 18 98 10/06/16 07:12 98.4 F 86 16 113/80 98 General: Conversant, No Apparent Distress Cardiac: Normal S1 and S2, No Murmur, Other (Irregularly irregular) Lungs: Normal Breath Sounds, No Wheeze, Rales, Rhonchi Extremities: No Cyanosis, Normal Pulses, Other (bilateral pedal edema) Results 10/06/16 05:57 10/06/16 05:57 Lab Results 10/06/16 10/06/16 10/06/16 05:57 05:57 05:57 WBC 10.6 Hgb 13.1 Hct 41.6 Plt Count 111 L INR 3.3 Sodium 141 Potassium 4.1 Chloride 103 Carbon Dioxide 30 H BUN 62 H Creatinine 1.81 H Glucose 105 H Calcium 8.6 Magnesium 2.0 Total Bilirubin 1.5 H AST 50 H ALT 71 H Alkaline Phosphatase 88 - VTE Documentation of Mechanical Device: Graduated compression elastic hosiery Consult Discharge Plan - Plan Referrals: Jere Kay, DEEPA [Primary Care Provider] - 10/13/16 1:00 pm
[2016-10-06 12:29] LABS: Bilirubin,Urine Negative (Negative); Blood,Urine Negative (Negative); Clarity,Urine Clear (Clear); Color,Urine Yellow (Yellow); Glucose,Urine (UA) Normal (Normal); Ketones,Urine Negative (Negative); Leukocyte Esterase,Urine Negative (Negative); Nitrite,Urine Negative (Negative); Protein,Urine Trace mg/dL (Neg-Trace); Specific Gravity,Urine 1.014 (1.010-1.025); Urobilinogen,Urine Normal (Normal)
[2016-10-06 12:31] LABS: Bacteria,Urine None Seen per hpf (None-Few); Hyaline Casts,Urine None Seen per lpf (None-Few); RBC,Urine 0-3 per hpf (0-3); Squamous Epithelial Cell,Urine Moderate per lpf (None-Few); WBC,Urine 0-3 per hpf (0-3)
--- NOTE | 2016-10-06 13:00 | Event Note ---
Date of Encounter: 10/06/16 Time of Encounter: 12:59 atte mpted to see patient. not in bed. will eval tomorrow.
--- NOTE | 2016-10-06 14:08 | Internal Med Progress Note ---
<Ayaz Black - Last Filed: 10/06/16 14:05> Date of Encounter: 10/06/16 Time of Encounter: 09:00 - Assessment and plan (1) Systolic CHF, acute on chronic Current Visit: Yes Status: Acute Assessment and plan: Mr. Bartlett 76-year-old male with a known history of left ventricular systolic dysfunction with an LVEF of 25% with his last echocardiogram completed on 2016, that also demonstrated severe dilated right atrium, severely dilated left atrium, moderate mild mitral regurgitation, and severe tricuspid regurgitation the setting of mild pulmonary hypertension with an estimated RVSP of 40. - He presented in atrial fibrillation with rapid ventricular rate in the setting of systolic heart failure exacerbation. His admitting BNP was 1675 with elevated troponins of 0.05-0.05 and 0.04. - Mr. Bartlett states that he is compliant with his home medications but has not had a consistent diet in the last couple weeks. - Physical exam findings demonstrate 2+ pitting edema in the bilateral lower extremities and trace edema in his mid to lower back bilaterally with abdominal fullness. - Currently positive fluid balance. Plan: - Continue 1.5 L fluid restrictions, 2 g sodium restricted diet - Continue daily I's and O's, standing daily weight, place Feliciano catheter - Discontinue Lasix pushes and start Lasix drip. - Continue to optimize cardiac medications including aspirin, Toprol-XL 100 mg by mouth daily - Continue current rate control. (2) Atrial fibrillation with RVR Current Visit: Yes Status: Acute Assessment and plan: Mr. Bartlett 76-year-old male with chronic history of atrial fibrillation on warfarin therapy for anticoagulation and rate control with Toprol-XL and amiodarone. - Rate control achieved. - Patient is off artisan drip. Plan: -Continue rate control with continue home dose of Toprol-XL and amiodarone 400 mg every other day - We will be important for adequate diuresis and a negative fluid balance. - Continue cardiac monitoring with a goal heart rate below 110 bpm. - Cardiology following the patient, recommendations appreciated. (3) Elevated troponin Current Visit: Yes Status: Acute Assessment and plan: Patient has elevated troponins at 0.05, 0.05 and 0.04 in the setting of systolic heart failure with an EF of 25% and atrial fibrillation with rapid ventricular rate. - Suspect elevation troponin secondary to rapid ventricular rate and demand/ supply mismatch. - Patient is without chest pain, chest pressure. EKG is reviewed. Plan: - Continue with rate control. (4) HTN (hypertension) Current Visit: Yes Status: Acute Assessment and plan: Patient has a history of hypertension, currently blood pressures are stable. - Continue to hold lisinopril in the setting of acute kidney injury. Qualifiers: Hypertension type: essential hypertension Qualified Code(s): I10 - Essential (primary) hypertension (5) Supratherapeutic INR Current Visit: Yes Status: Acute Assessment and plan: Patient's INR is 3.3, pharmacy dosing warfarin. Plan: - Hold warfarin until INR is below 3.0 (6) Acute kidney injury Current Visit: Yes Status: Acute Assessment and plan: Patient demonstrates acute kidney injury with a creatinine 1.86 down from 2.16 yesterday. GFR currently 36. Baseline creatinine 0.9 and GFR greater than 60. - Likely secondary to systolic heart failure and atrial fibrillation with RVR perpetuating prerenal GUILLAUME. - Acute kidney injury improving with rate control. - Patient also has complicating factor of BPH, Feliciano catheter will help with adequate output in the setting of continuous diuresis. Plan: Optimize rate control and decrease cardiac preload. - Avoid nephrotoxic medications and renally dose antibiotics as necessary. - Daily BMP to monitor electrolytes and renal function the setting of diuresis and acute kidney injury. - Subjective Interval history: Mr. Bartlett has been seen and evaluated the patient bedside this morning. He feels that he has had increased edema in his bilateral lower extremities which is non-painful when standing. He feels his breathing is slightly improved but he also feels constipated. He denies any chest pain, chest pressure, chest palpitations, nausea vomiting or abdominal pains. He has no further complaints at this time he just wants to feel better. - Constitutional Vitals: Temp Pulse Resp BP Pulse Ox 98.6 F 98 16 113/80 95 10/06/16 11:59 10/06/16 11:59 10/06/16 11:59 10/06/16 11:59 10/06/16 11:59 General appearance: Present: mild distress, A&O X 3, answers questions appropriately Exam: General: Patient alert, awake, oriented 3, interactive, in no acute distress HEENT: Normocephalic, atraumatic, pupils equal reactive to light, nasal cavity patent and open septum median position, oral mucosa moist, uvula midline, neck supple trachea midline no palpable lymphadenopathy, no thyromegaly. Chest: Symmetric bilateral correlating with respiratory effort, effort mildly labored. Cardiac: Irregularly irregular rhythm with rapid ventricular rate, no bruits appreciated bilateral carotids, Radial pulses 2+ bilateral, posterior tibial and dorsal pedal pulses 2+ bilateral. Respiratory: Rhonchi appreciated diffusely in bilateral lung acosta. Abdomen: Soft, tympanic in epigastric region, distended, positive bowel sounds, no palpable masses appreciated on examination. Nontender to palpation Extremities: Symmetric bilateral, bilateral 2+ pitting edema with edema up to mid back bilateral, patient moving all 4 extremities spontaneously. Neurologic: No focal deficits appreciated on examination. Face symmetric, muscle strength symmetric bilateral upper and lower extremities. Internal Medicine: Result - Labs CBC & Chem 7: 10/06/16 05:57 10/06/16 05:57 Labs: Short CBC 10/06/16 Range/Units 05:57 WBC 10.6 (4.3-11.1) K/mcL Hgb 13.1 (12.9-16.9) g/dL Hct 41.6 (37.5-50.1) % Plt Count 111 L (140-400) K/mcL Neutrophils # 8.6 (1.6-8.9) K/mcL BMP 10/06/16 05:57 Sodium 141 Potassium 4.1 Chloride 103 Carbon Dioxide 30 H BUN 62 H Creatinine 1.81 H Glucose 105 H Calcium 8.6 Liver Function 10/06/16 Range/Units 05:57 Total Bilirubin 1.5 H (0.2-1.2) mg/dL AST 50 H (5-34) Units/L ALT 71 H (0-55) Units/L Alkaline Phosphatase 88 (38-126) Units/L Albumin 3.1 L (3.5-5.0) g/dL Urine 10/06/16 Range/Units 12:08 Urine Color Yellow (Yellow) Urine Clarity Clear (Clear) Urine pH 6.0 (5.0-8.0) pH Units Ur Specific Masterson 1.014 (1.010-1.025) Urine Protein Trace (Neg-Trace) mg/dL Urine Glucose (UA) Normal (Normal) mg/dL - ABG Interpretation ABG results: PT/INR, D-dimer PT 36.5 Seconds (9.4-12.1) H 10/06/16 05:57 - Impressions Impressions Retroperitoneum Ultrasound 10/05/16 16:30 IMPRESSION: No hydronephrosis noted Large postvoid residual, however the patient had difficulty voiding D/ / Maldonado Pena MD / Maldonado Pena MD Interpreting Provider: Maldonado Pena MD - VTE Documentation of Mechanical Device: Graduated compression elastic hosiery Consult Discharge Plan - Plan Referrals: Jere Kay, DEEPA [Primary Care Provider] - 10/13/16 1:00 pm <Lisbeth Dias - Last Filed: 10/06/16 16:30> Date of Encounter: 10/06/16 - Constitutional Vitals: Temp Pulse Resp BP Pulse Ox 97.3 F L 102 16 111/79 94 10/06/16 15:59 10/06/16 15:59 10/06/16 15:59 10/06/16 15:59 10/06/16 15:59 Internal Medicine: Result - Labs CBC & Chem 7: 10/06/16 05:57 10/06/16 05:57 Labs: Short CBC 10/06/16 Range/Units 05:57 WBC 10.6 (4.3-11.1) K/mcL Hgb 13.1 (12.9-16.9) g/dL Hct 41.6 (37.5-50.1) % Plt Count 111 L (140-400) K/mcL Neutrophils # 8.6 (1.6-8.9) K/mcL BMP 10/06/16 05:57 Sodium 141 Potassium 4.1 Chloride 103 Carbon Dioxide 30 H BUN 62 H Creatinine 1.81 H Glucose 105 H Calcium 8.6 Liver Function 10/06/16 Range/Units 05:57 Total Bilirubin 1.5 H (0.2-1.2) mg/dL AST 50 H (5-34) Units/L ALT 71 H (0-55) Units/L Alkaline Phosphatase 88 (38-126) Units/L Albumin 3.1 L (3.5-5.0) g/dL Urine 06/14/17 Range/Units 12:08 Urine Color Yellow (Yellow) Urine Clarity Clear (Clear) Urine pH 6.0 (5.0-8.0) pH Units Ur Specific Masterson 1.014 (1.010-1.025) Urine Protein Trace (Neg-Trace) mg/dL Urine Glucose (UA) Normal (Normal) mg/dL - ABG Interpretation ABG results: PT/INR, D-dimer PT 36.5 Seconds (9.4-12.1) H 10/06/16 05:57 - Impressions Impressions Retroperitoneum Ultrasound 10/05/16 16:30 IMPRESSION: No hydronephrosis noted Large postvoid residual, however the patient had difficulty voiding D/ / Maldonado Pena MD / Maldonado Pena MD Interpreting Provider: Maldonado Pena MD - Attending Attestation I examined this patient and reviewed laboratory, imaging and all diagnostic data. My medical decision-making was reviewed with Dr Shemar Black - Resident Physician. I agree with the documented findings, disposition and treatment plan as described above.
[2016-10-06] MEDS ORDERED: 0.9 % Sodium Chloride 500 ML ONE (14:10)
[2016-10-06] MEDS: Furosemide 240 MG in D5% in Water 96 ML IVC SCH (14:32)
[2016-10-06] MEDS ORDERED: *HR* Warfarin 3 MG TABLET PO ONE (18:00)
[2016-10-07 06:44] LABS: INR 2.7; Prothrombin Time 30.4 Seconds (9.4-12.1)
[2016-10-07 06:47] LABS: Basophils % 0.2 %; Eosinophils # 0.1 K/mcL (0.0-0.6); Eosinophils % 1.3 %; Hematocrit 41.9 % (37.5-50.1); Hemoglobin 13.3 g/dL (12.9-16.9); Immature Granulocytes % 0.4 % (0-4); Lymphocytes % 10.2 %; Mean Corpuscular HGB Conc 31.7 g/dL (31.6-35.5); Mean Corpuscular Hemoglobin 33.3 pg (28.0-33.3); Mean Platelet Volume 10.8 fL (9.4-12.4); Monocytes # 0.9 K/mcL (0.0-1.3); Monocytes % 9.3 %; Neutrophils # 7.8 K/mcL (1.6-8.9); Nucleated Red Blood Cells 0.2 /100 WBC (0); Platelet Count 119 K/mcL (140-400); Red Blood Count 3.99 M/mcL (4.19-5.50); Red Cell Distribution Width 14.1 % (11.5-14.5); Segmented Neutrophils % 78.6 %
[2016-10-07 06:59] LABS: Bilirubin,Total 1.7 mg/dL (0.2-1.2); Calcium 8.5 mg/dL (8.6-10.8); Potassium 3.6 mEq/L (3.5-4.5); Total Protein 5.9 g/dL (6.0-8.3)
[2016-10-07 07:00] LABS: Globulin 2.9 g/dL (2.4-3.5)
[2016-10-07] MEDS: Budesonide/Formoterol 80/4.5 MDI IH SCH (07:53)
--- NOTE | 2016-10-07 08:02 | Urology - Consult Note ---
Date of Encounter: 10/07/16 Time of Encounter: 07:59 - Assessment and Plan (1) Urinary retention due to benign prostatic hyperplasia Current Visit: Yes Status: Acute Assessment and plan: will add flomax. continue catheter for one week. f/u with me in office in 1 week for voiding trial. Urology CN:[email or web address] Consult date: 10/07/16 Reason for consult Urology: Other (urinary retention) Requesting physician: Lisbeth Dias History of present illness: Rosendo is a 76 y/o male with history of recent renal us which showed large PVR. The patient was having increasing urinary frequency and urgency yesterday and a catheter was placed. Patient believes that his voiding difficulties have been ongoing for some time. never has seen a urologist or taken meds for his prostate. has a weak urinary stream. Past Med Surg Social Fam HX - Past Medical History Medical history: atrial fibrillation, COPD, CVA, DVT, hyperlipidemia, hypertension, myocardial infarction Psychiatric history: no psych history - Past Surgical History Surgical History: pacemaker/AICD - Social History Smoking Status: Former smoker Smokeless Tobacco Status: No Alcohol use: none Drug use: none - Family History Mother Living Status: Still Living Cause of : heart disease Father Living Status: Age at : 78 Cause of : heart Hx Family Cardiac Disorders: Yes Medications and Allergies Allopurinol [Zyloprim 300 MG] 300 mg PO DAILY 12/01/15 [History] Aspirin 81 mg PO DAILY 12/01/15 [History] Furosemide [Lasix] 40 mg PO DAILY 12/01/15 [History] Lisinopril [Zestril] 20 mg PO DAILY 12/01/15 [History] Warfarin [Coumadin] 3 mg PO MOWEFR 12/01/15 [History] Albuterol Sulfate [Proair Hfa] 2 puff IH Q4H PRN 10/04/16 [History] Amiodarone [Cordarone] 200 mg PO DAILY 10/04/16 [History] Fluticasone/Salmeterol [Advair Hfa 115-21 Mcg Inhaler] 2 puff IH BID 10/04/16 [ History] Metoprolol Succinate 100 mg PO DAILY 10/04/16 [History] Oxygen 2 l NS AD 10/04/16 [History] Tramadol HCl [Ultram] 50 mg PO Q6H PRN 10/04/16 [History] Warfarin [Coumadin] 1.5 mg PO SUTUTHSA 10/04/16 [History] Allergies No Known Allergies Allergy (Verified 09/13/16 00:44) Review of Systems - Constitutional no chills - EENT Nose, mouth and throat: no dry mouth - Cardiovascular no chest pain - Respiratory no cough - Gastrointestinal no abdominal pain - Genitourinary as per HPI Exam Initial Vital Signs Temp Pulse Resp BP Pulse Ox 99.1 F 164 24 99/79 97 10/04/16 13:57 10/04/16 13:57 10/04/16 13:57 10/04/16 13:57 10/04/16 13:57 - General physical appearance Present: well developed - Eyes Present: PERRL - ENT Present: normal nares - Neck Present: no masses - Respiratory Present: normal respiratory effort - Abdomen Abdomen: Present: soft - Genitourinary other (urine clear in tubing) Urology Results - Labs 10/07/16 06:15 10/07/16 06:15 Abnormal lab results RBC 3.99 M/mcL (4.19-5.50) L 10/07/16 06:15 MCV 105.0 fL (83.0-100.0) H 10/07/16 06:15 Plt Count 119 K/mcL (140-400) L 10/07/16 06:15 Nucleated RBCs/100 WBC 0.2 /100 WBC (0) H 10/07/16 06:15 PT 30.4 Seconds (9.4-12.1) H 10/07/16 06:15 APTT 40.1 Seconds (26.0-36.0) H 10/04/16 14:18 Carbon Dioxide 34 mEq/L (19-29) H 10/07/16 06:15 BUN 51 mg/dL (8-26) H 10/07/16 06:15 Creatinine 1.57 mg/dL (0.72-1.25) H 10/07/16 06:15 Est GFR ( Amer) 52 (> 60) L 10/07/16 06:15 Est GFR (Non-Af Amer) 43 (> 60) L 10/07/16 06:15 BUN/Creatinine Ratio 32 (6-26) H 10/07/16 06:15 Calculated Osmolality 311 (280-300) H 10/07/16 06:15 Calcium 8.5 mg/dL (8.6-10.8) L 10/07/16 06:15 Total Bilirubin 1.7 mg/dL (0.2-1.2) H 10/07/16 06:15 Troponin I 0.04 ng/mL (0-0.03) H* 10/05/16 01:30 B-Natriuretic Peptide 1333 pg/mL (0-100) H 10/07/16 06:15 Serum Total Protein 5.9 g/dL (6.0-8.3) L 10/07/16 06:15 Albumin 3.0 g/dL (3.5-5.0) L 10/07/16 06:15 Albumin/Globulin Ratio 1.0 (1.1-2.2) L 10/07/16 06:15 Ur Squamous Epith Cells Moderate per lpf (None-Few) H 10/06/16 12:08 Diabetes panel 10/07/16 Range/Units 06:15 Sodium 144 (136-145) mEq/L Potassium 3.6 (3.5-4.5) mEq/L Chloride 103 (98-109) mEq/L Carbon Dioxide 34 H (19-29) mEq/L BUN 51 H (8-26) mg/dL Creatinine 1.57 H (0.72-1.25) mg/dL Glucose 93 (70-99) mg/dL Calcium 8.5 L (8.6-10.8) mg/dL AST 34 (5-34) Units/L ALT 55 (0-55) Units/L Alkaline Phosphatase 81 (38-126) Units/L Albumin 3.0 L (3.5-5.0) g/dL Calcium panel 10/07/16 Range/Units 06:15 Calcium 8.5 L (8.6-10.8) mg/dL Albumin 3.0 L (3.5-5.0) g/dL Pituitary panel 10/07/16 Range/Units 06:15 Sodium 144 (136-145) mEq/L Potassium 3.6 (3.5-4.5) mEq/L Chloride 103 (98-109) mEq/L Carbon Dioxide 34 H (19-29) mEq/L BUN 51 H (8-26) mg/dL Creatinine 1.57 H (0.72-1.25) mg/dL Glucose 93 (70-99) mg/dL Calcium 8.5 L (8.6-10.8) mg/dL Adrenal panel 10/07/16 Range/Units 06:15 Sodium 144 (136-145) mEq/L Potassium 3.6 (3.5-4.5) mEq/L Chloride 103 (98-109) mEq/L Carbon Dioxide 34 H (19-29) mEq/L BUN 51 H (8-26) mg/dL Creatinine 1.57 H (0.72-1.25) mg/dL Glucose 93 (70-99) mg/dL Calcium 8.5 L (8.6-10.8) mg/dL Total Bilirubin 1.7 H (0.2-1.2) mg/dL AST 34 (5-34) Units/L ALT 55 (0-55) Units/L Alkaline Phosphatase 81 (38-126) Units/L Albumin 3.0 L (3.5-5.0) g/dL All other labs normal. - Imaging US - abdomen: image reviewed Consult Discharge Plan - Plan Referrals: eJre Kay, [facility] [Primary Care Provider] - 10/13/16 1:00 pm
--- NOTE | 2016-10-07 08:03 | Nephrology Progress Note ---
Date of Encounter: 10/07/16 Time of Encounter: 08:01 - Assessment and Plan (1) GUILLAUME (acute kidney injury) Current Visit: Yes Status: Acute Patient has acute kidney injury in the setting of A. fib with RVR as well as acute congestive heart failure. The patient is going to be seen by urology for an elevated post void residual on his ultrasound. I will continue with the current medical regimen and continue to monitor his renal function. (2) Atrial fibrillation with RVR Current Visit: Yes Status: Acute Subjective Principal diagnosis: a. fib Interval history: The patient says he feels better today. He is now on a Lasix drip. He still has lower extremity edema but it appears to be somewhat improved. Creatinine is improved from 1.81 down to 1.57. Urine output is recorded as 1.7 L. Objective - Vital Signs Vital signs: Vital Signs Temp Pulse Resp BP Pulse Ox 10/07/16 07:23 97.7 F 131 16 93/71 97 10/07/16 04:26 98 F 114 20 116/60 97 10/06/16 23:59 97.9 F 112 16 103/79 94 10/06/16 21:28 98 10/06/16 20:00 107 19 107/85 98 10/06/16 15:59 97.3 F L 102 16 111/79 94 10/06/16 11:59 98.6 F 98 16 113/80 95 Intake and Output 10/06/16 10/07/16 10/07/16 23:59 07:59 15:59 Intake Total 0 / 0 200 / 200 Output Total 1350 / 1350 1550 / 1550 Balance -1350 / -1350 -1350 / -1350 Intake: Oral 0 / 0 200 / 200 Output: Catheter 1350 / 1350 1550 / 1550 Other: Stool Size Moderate Stool Consistency soft Stool Color Brown # Bowel Movements 1 Weight 91.9 kg Patient Weight 10/07/16 23:59 Weight 91.9 kg - General Appearance Exam: Patient is alert and oriented. He is in no acute distress. Lungs diminished breath sounds otherwise clear. Heart irregular rate and rhythm consistent with atrial fibrillation. Abdomen is benign. There is lower extremity swelling that appears to be slightly better compared to yesterday. - Lab 10/07/16 06:15 10/07/16 06:15 Most recent lab results Calcium 8.5 mg/dL (8.6-10.8) L 10/07/16 06:15 Magnesium 2.0 mg/dL (1.6-2.6) 10/06/16 05:57 - VTE Documentation of Mechanical Device: Graduated compression elastic hosiery Consult Discharge Plan - Plan Referrals: Jere Kay, DEEPA [Primary Care Provider] - 10/13/16 1:00 pm
[2016-10-07] MEDS ORDERED: Furosemide 40 MG/4 ML VIAL IVP SCH (09:00)
[2016-10-07] MEDS ORDERED: Metoprolol XL (24 HR) Succ 50 MG TAB.ER.24H PO SCH ×2 (09:03→10:52)
--- NOTE | 2016-10-07 09:11 | Cardiology Progress Note ---
Date of Encounter: 10/07/16 Time of Encounter: 09:09 Assessment and Plan (1) Atrial fibrillation with RVR Current Visit: Yes Status: Acute Cardizem successfully weaned yesterday, however, this morning patient's heart rate has been in the 130s-140s We will increase metoprolol and monitor response Continue loading amiodarone 400mg BID Anticoagulation with Coumadin, pharmacy is dosing, INR today 2.7 (2) HTN (hypertension) Current Visit: Yes Status: Acute stable Qualifiers: Hypertension type: essential hypertension Qualified Code(s): I10 - Essential (primary) hypertension (3) CHF (congestive heart failure) Current Visit: Yes Status: Acute Systolic CHF with EF 25% on recent echo Patient on 40mg Lasix at home, Lasix has been changed to drip and I/O -1350 today Patient admits to nonadherence to sodium / fluid restriction at home. Education provided Continue cardiac diet, Na / fluid restrictions Qualifiers: Congestive heart failure type: systolic Congestive heart failure chronicity : acute on chronic Qualified Code(s): I50.23 - Acute on chronic systolic ( congestive) heart failure Discussion w patient/family: The assessment and plan as outlined above was discussed with the patient and/or family members who expressed understanding and agreement. All questions were answered. Thank you for involving us in the care of your patient. Please call with any questions. Subjective Principal diagnosis: a. fib Interval history: She was seen and examined at bedside this morning. He denies chest pain, shortness of breath, palpitations. Says his swelling is better today Objective Vital Signs, Last 4 Hours Temp Pulse Resp BP Pulse Ox 10/07/16 07:53 16 97 10/07/16 07:23 97.7 F 131 16 93/71 97 General: Conversant, No Apparent Distress Cardiac: Normal S1 and S2, No Murmur, Other (Irregularly irregular) Lungs: Normal Breath Sounds, No Wheeze, Rales, Rhonchi Extremities: No Cyanosis, Other (Bilateral pedal edema improved relative to yesterday) Results 10/07/16 06:15 10/07/16 06:15 Lab Results 10/07/16 10/07/16 10/07/16 06:15 06:15 06:15 WBC 9.9 Hgb 13.3 Hct 41.9 Plt Count 119 L INR 2.7 Sodium Potassium Chloride Carbon Dioxide BUN Creatinine Glucose Calcium Total Bilirubin AST ALT Alkaline Phosphatase B-Natriuretic Peptide 1333 H 10/07/16 06:15 WBC Hgb Hct Plt Count INR Sodium 144 Potassium 3.6 Chloride 103 Carbon Dioxide 34 H BUN 51 H Creatinine 1.57 H Glucose 93 Calcium 8.5 L Total Bilirubin 1.7 H AST 34 ALT 55 Alkaline Phosphatase 81 B-Natriuretic Peptide - VTE Documentation of Mechanical Device: Graduated compression elastic hosiery Consult Discharge Plan - Plan Referrals: Jere Kay, CONSULTANT DIETITIAN [Primary Care Provider] - 10/13/16 1:00 pm
[2016-10-07] MEDS: Sennosides/Docusate Sodium TABLET PO SCH ×2 (09:25→19:45)
[2016-10-07] MEDS: *HR* Amiodarone 200 MG TABLET PO SCH (09:25)
[2016-10-07] MEDS: Aspirin 81 MG TAB.CHEW PO SCH (09:25)
[2016-10-07] MEDS ORDERED: Magnesium Sulfate 1 GM in D5% in Water 100 ML IVPB ONE (11:26)
[2016-10-07] MEDS ORDERED: Amiodarone Premix 360 MG/200 ML BAG IVC ONE ×2 (11:52→18:11)
[2016-10-07] MEDS ORDERED: Amiodarone Premix 150 MG/100 ML BAG IVPB ONE (11:52)
[2016-10-07] MEDS ORDERED: Amiodarone Premix 360 MG/200 ML BAG IVC SCH (12:00)
--- NOTE | 2016-10-07 13:38 | Internal Med Progress Note ---
<Ayaz Black - Last Filed: 10/07/16 13:34> Date of Encounter: 10/07/16 Time of Encounter: 08:30 - Assessment and plan (1) Systolic CHF, acute on chronic Current Visit: Yes Status: Acute Assessment and plan: Mr. Bartlett 76-year-old male with a known history of left ventricular systolic dysfunction with an LVEF of 25% with his last echocardiogram completed on 2016, that also demonstrated severe dilated right atrium, severely dilated left atrium, moderate mild mitral regurgitation, and severe tricuspid regurgitation the setting of mild pulmonary hypertension with an estimated RVSP of 40. - He presented in atrial fibrillation with rapid ventricular rate in the setting of systolic heart failure exacerbation. His admitting BNP was 1675 with elevated troponins of 0.05-0.05 and 0.04. - Mr. Bartlett states that he is compliant with his home medications but has not had a consistent diet in the last couple weeks. - Physical exam findings demonstrate 2+ pitting edema in the bilateral lower extremities and trace edema in his mid to lower back bilaterally with abdominal fullness. 10/07/2016: Patient was hypotensive with rapid ventricular rate. Diuresis was held. Fluid balance was -1.5 L. At this time rate controlled B most beneficial. Plan: - Continue 1.5 L fluid restrictions, 2 g sodium restricted diet - Continue daily I's and O's, standing daily weight, place Feliciano catheter - Discontinue Lasix drip. - Continue to optimize cardiac medications including aspirin, amiodarone - Continue current rate control. (2) Atrial fibrillation with RVR Current Visit: Yes Status: Acute Assessment and plan: Mr. Bartlett 76-year-old male with chronic history of atrial fibrillation on warfarin therapy for anticoagulation and rate control with Toprol-XL and amiodarone. 10/07/2016: Patient has been seen and evaluated patient bedside this morning. She was in atrial fibrillation with rapid ventricular rate around 140-150. He developed hypotension with a low systolic pressure of 64. Lasix drip was discontinued, metoprolol was held. Patient was laid flat and started on amiodarone drip. He was transferred to the ICU as a 2 N. overflow. Plan: -Continue rate control with continue home dose of Toprol-XL and amiodarone 400 mg every other day and amiodarone drip. - Hold diuresis as patient is vascularly depleted with hypotension and rapid ventricular rate - Continue cardiac monitoring with a goal heart rate below 110 bpm. - Cardiology following the patient, recommendations appreciated. (3) Elevated troponin Current Visit: Yes Status: Acute Assessment and plan: Patient has elevated troponins at 0.05, 0.05 and 0.04 in the setting of systolic heart failure with an EF of 25% and atrial fibrillation with rapid ventricular rate. - Suspect elevation troponin secondary to rapid ventricular rate and demand/ supply mismatch. - Patient is without chest pain, chest pressure. EKG is reviewed. Plan: - Continue with rate control. (4) HTN (hypertension) Current Visit: Yes Status: Acute Assessment and plan: Patient has a history of hypertension, currently blood pressures are stable. - Continue to hold lisinopril in the setting of acute kidney injury. Qualifiers: Hypertension type: essential hypertension Qualified Code(s): I10 - Essential (primary) hypertension (5) Supratherapeutic INR Current Visit: Yes Status: Acute Assessment and plan: Resolved. Plan: - Hold warfarin until INR is below 3.0 - Pharmacy to dose warfarin - Monitor INR daily. (6) Acute kidney injury Current Visit: Yes Status: Acute Assessment and plan: Patient demonstrates acute kidney injury with a creatinine 1.86 down from 2.16 yesterday. GFR currently 36. Baseline creatinine 0.9 and GFR greater than 60. - Likely secondary to systolic heart failure and atrial fibrillation with RVR perpetuating prerenal GUILLAUME. - Acute kidney injury improving with rate control. - Patient also has complicating factor of BPH, Feliciano catheter will help with adequate output in the setting of continuous diuresis. 10/07/2016: Renal function improved with a creatinine of 1.57, while on Lasix drip and rate control. Plan: Optimize rate control and decrease cardiac preload. - Avoid nephrotoxic medications and renally dose antibiotics as necessary. - Daily BMP to monitor electrolytes and renal function the setting of diuresis and acute kidney injury. - Subjective Interval history: Mr. Bartlett has been seen and evaluated the patient bedside this morning. He feels that he has had increased edema in his bilateral lower extremities which is non-painful when standing. He feels his breathing is slightly improved but he also feels constipated. He denies any chest pain, chest pressure, chest palpitations, nausea vomiting or abdominal pains. He has no further complaints at this time he just wants to feel better. - Constitutional Vitals: Temp Pulse Resp BP Pulse Ox 98 F 132 16 78/63 97 10/07/16 11:25 10/07/16 11:25 10/07/16 11:25 10/07/16 11:25 10/07/16 11:25 General appearance: Present: mild distress, A&O X 3, answers questions appropriately Exam: General: Patient alert, awake, oriented 3, interactive, in no acute distress HEENT: Normocephalic, atraumatic, pupils equal reactive to light, nasal cavity patent and open septum median position, oral mucosa moist, uvula midline, neck supple trachea midline no palpable lymphadenopathy, no thyromegaly. Chest: Symmetric bilateral correlating with respiratory effort, effort mildly labored. Cardiac: Irregularly irregular rhythm with rapid ventricular rate, no bruits appreciated bilateral carotids, Radial pulses 2+ bilateral, posterior tibial and dorsal pedal pulses 2+ bilateral. Respiratory: Clear to auscultation bilateral lung acosta. Abdomen: Soft, tympanic in epigastric region, distended, positive bowel sounds, no palpable masses appreciated on examination. Nontender to palpation Extremities: Symmetric bilateral, bilateral 1+ pitting edema with edema up to mid back bilateral, patient moving all 4 extremities spontaneously. Neurologic: No focal deficits appreciated on examination. Face symmetric, muscle strength symmetric bilateral upper and lower extremities. Internal Medicine: Result - Labs CBC & Chem 7: 10/07/16 06:15 10/07/16 06:15 Labs: Short CBC 10/07/16 Range/Units 06:15 WBC 9.9 (4.3-11.1) K/mcL Hgb 13.3 (12.9-16.9) g/dL Hct 41.9 (37.5-50.1) % Plt Count 119 L (140-400) K/mcL Neutrophils # 7.8 (1.6-8.9) K/mcL BMP 10/07/16 06:15 Sodium 144 Potassium 3.6 Chloride 103 Carbon Dioxide 34 H BUN 51 H Creatinine 1.57 H Glucose 93 Calcium 8.5 L Liver Function 10/07/16 Range/Units 06:15 Total Bilirubin 1.7 H (0.2-1.2) mg/dL AST 34 (5-34) Units/L ALT 55 (0-55) Units/L Alkaline Phosphatase 81 (38-126) Units/L Albumin 3.0 L (3.5-5.0) g/dL - ABG Interpretation ABG results: PT/INR, D-dimer PT 30.4 Seconds (9.4-12.1) H 10/07/16 06:15 - VTE Documentation of Mechanical Device: Graduated compression elastic hosiery Consult Discharge Plan - Plan Referrals: Jere Kay, CARPET SEWING MACHINE OPERATOR [Primary Care Provider] - 10/13/16 1:00 pm <Lisbeth Dias - Last Filed: 10/07/16 15:47> Date of Encounter: 10/07/16 - Constitutional Vitals: Temp Pulse Resp BP Pulse Ox 99 F 118 21 98/76 98 10/07/16 13:30 10/07/16 14:30 10/07/16 14:30 10/07/16 14:30 10/07/16 14:30 Internal Medicine: Result - Labs CBC & Chem 7: 10/07/16 06:15 10/07/16 06:15 Labs: Short CBC 10/07/16 Range/Units 06:15 WBC 9.9 (4.3-11.1) K/mcL Hgb 13.3 (12.9-16.9) g/dL Hct 41.9 (37.5-50.1) % Plt Count 119 L (140-400) K/mcL Neutrophils # 7.8 (1.6-8.9) K/mcL BMP 10/07/16 06:15 Sodium 144 Potassium 3.6 Chloride 103 Carbon Dioxide 34 H BUN 51 H Creatinine 1.57 H Glucose 93 Calcium 8.5 L Liver Function 10/07/16 Range/Units 06:15 Total Bilirubin 1.7 H (0.2-1.2) mg/dL AST 34 (5-34) Units/L ALT 55 (0-55) Units/L Alkaline Phosphatase 81 (38-126) Units/L Albumin 3.0 L (3.5-5.0) g/dL - ABG Interpretation ABG results: PT/INR, D-dimer PT 30.4 Seconds (9.4-12.1) H 10/07/16 06:15 - Attending Attestation I examined this patient and reviewed laboratory, imaging and all diagnostic data. My medical decision-making was reviewed with Dr Shemar Black - Resident Physician. I agree with the documented findings, disposition and treatment plan as described above.
[2016-10-07] MEDS ORDERED: Warfarin perPT PO PRN (18:00)
[2016-10-07] MEDS ORDERED: *HR* Warfarin 3 MG TABLET PO ONE ×2 (18:00→18:45)
[2016-10-07] MEDS ORDERED: traMADol 50 MG TABLET PO PRN (18:13)
[2016-10-07] MEDS ORDERED: Acetaminophen 325 MG TABLET PO PRN (18:14)
[2016-10-07] MEDS ORDERED: Naloxone 0.4 MG/ML INJ IVP PRN (18:14)
[2016-10-07] MEDS: Amiodarone Premix 360 MG/200 ML BAG IVC SCH (19:45)
[2016-10-08 05:39] LABS: Basophils % 0.2 %; Eosinophils # 0.2 K/mcL (0.0-0.6); Eosinophils % 1.9 %; Hematocrit 42.7 % (37.5-50.1); Hemoglobin 13.4 g/dL (12.9-16.9); Immature Granulocytes % 0.3 % (0-4); Lymphocytes # 0.9 K/mcL (0.6-4.6); Lymphocytes % 9.7 %; Mean Corpuscular HGB Conc 31.4 g/dL (31.6-35.5); Mean Corpuscular Hemoglobin 32.9 pg (28.0-33.3); Mean Corpuscular Volume 104.9 fL (83.0-100.0); Monocytes # 0.6 K/mcL (0.0-1.3); Monocytes % 6.7 %; Neutrophils # 7.2 K/mcL (1.6-8.9); Platelet Count 106 K/mcL (140-400); Red Blood Count 4.07 M/mcL (4.19-5.50); Red Cell Distribution Width 14.1 % (11.5-14.5); Segmented Neutrophils % 81.2 %
[2016-10-08 05:41] LABS: INR 2.6; Prothrombin Time 28.9 Seconds (9.4-12.1)
[2016-10-08 05:48] LABS: Calcium 8.2 mg/dL (8.6-10.8); Magnesium 1.9 mg/dL (1.6-2.6); Potassium 3.1 mEq/L (3.5-4.5)
[2016-10-08] MEDS: Amiodarone Premix 360 MG/200 ML BAG IVC SCH ×3 (07:50→20:41)
[2016-10-08] MEDS: Sennosides/Docusate Sodium TABLET PO SCH ×2 (07:50→20:09)
[2016-10-08] MEDS: Pantoprazole 40 MG VIAL IVPB SCH (07:50)
[2016-10-08] MEDS: Aspirin 81 MG TAB.CHEW PO SCH (07:50)
--- NOTE | 2016-10-08 08:15 | Internal Med Progress Note ---
<Ayaz Black Mario - Last Filed: 10/08/16 10:32> Date of Encounter: 10/08/16 Time of Encounter: 08:13 - Assessment and plan (1) Systolic CHF, acute on chronic Current Visit: Yes Status: Acute Assessment and plan: Mr. Bartlett 76-year-old male with a known history of left ventricular systolic dysfunction with an LVEF of 25% with his last echocardiogram completed on 2016, that also demonstrated severe dilated right atrium, severely dilated left atrium, moderate mild mitral regurgitation, and severe tricuspid regurgitation the setting of mild pulmonary hypertension with an estimated RVSP of 40. - He presented in atrial fibrillation with rapid ventricular rate in the setting of systolic heart failure exacerbation. His admitting BNP was 1675 with elevated troponins of 0.05-0.05 and 0.04. - Mr. Bartlett states that he is compliant with his home medications but has not had a consistent diet in the last couple weeks. - Physical exam findings demonstrate 2+ pitting edema in the bilateral lower extremities and trace edema in his mid to lower back bilaterally with abdominal fullness. 10/07/2016: Patient was hypotensive with rapid ventricular rate. Diuresis was held. Fluid balance was -1.5 L. At this time rate controlled most beneficial. 10/08/2016: Fluid balance -2413 today. Diuresis continues to be held in the setting in hypotension. Continue with optimized cardiac coverage. Plan: - Continue 1.5 L fluid restrictions, 2 g sodium restricted diet - Continue daily I's and O's, standing daily weight, place Feliciano catheter - Continue to optimize cardiac medications including aspirin, amiodarone - Continue current rate control. (2) Atrial fibrillation with RVR Current Visit: Yes Status: Acute Assessment and plan: Mr. Bartlett 76-year-old male with chronic history of atrial fibrillation on warfarin therapy for anticoagulation and rate control with Toprol-XL and amiodarone. 10/07/2016: Patient has been seen and evaluated patient bedside this morning. She was in atrial fibrillation with rapid ventricular rate around 140-150. He developed hypotension with a low systolic pressure of 64. Lasix drip was discontinued, metoprolol was held. Patient was laid flat and started on amiodarone drip. He was transferred to the ICU as a 2 N. overflow. 10/08/2016: Patient remains in the ICU as a 2N overflow. Continues to have A- fib with RVR while on Amiodarone drip. Continues to have hypotension but improved compared to yesterday. Plan: -Continue rate control with continue home dose of Toprol-XL and amiodarone 400 mg every other day and amiodarone drip. - Hold diuresis as patient is vascularly depleted with hypotension and rapid ventricular rate - Continue cardiac monitoring with a goal heart rate below 110 bpm. - Cardiology following the patient, recommendations appreciated. (3) Elevated troponin Current Visit: Yes Status: Acute Assessment and plan: Patient has elevated troponins at 0.05, 0.05 and 0.04 in the setting of systolic heart failure with an EF of 25% and atrial fibrillation with rapid ventricular rate. - Suspect elevation troponin secondary to rapid ventricular rate and demand/ supply mismatch. - Patient is without chest pain, chest pressure. EKG is reviewed. Plan: - Continue with rate control. (4) HTN (hypertension) Current Visit: Yes Status: Acute Assessment and plan: Patient has a history of hypertension, currently blood pressures are stable - Continue to hold lisinopril in the setting of acute kidney injury. Current coverage: Continue Toprol-XL 25 mg by mouth daily Qualifiers: Hypertension type: essential hypertension Qualified Code(s): I10 - Essential (primary) hypertension (5) Supratherapeutic INR Current Visit: Yes Status: Acute Assessment and plan: Resolved. Plan: - Hold warfarin until INR is below 3.0 - Pharmacy to dose warfarin - Monitor INR daily. (6) Acute kidney injury Current Visit: Yes Status: Acute Assessment and plan: Patient demonstrates acute kidney injury with a creatinine 1.86 down from 2.16 yesterday. GFR currently 36. Baseline creatinine 0.9 and GFR greater than 60. - Likely secondary to systolic heart failure and atrial fibrillation with RVR perpetuating prerenal GUILLAUME. - Acute kidney injury improving with rate control. - Patient also has complicating factor of BPH, Feliciano catheter will help with adequate output in the setting of continuous diuresis. 10/08/2016: Renal function improving slowly. creatinine and GFR trending in the right direction. Improvement with rate control and reduction in preload in the setting if acute systolic heart failure exacerbation. Plan: Optimize rate control and decrease cardiac preload. - Avoid nephrotoxic medications and renally dose antibiotics as necessary. - Daily BMP to monitor electrolytes and renal function the setting of diuresis and acute kidney injury. - Subjective Interval history: Mr. Bartlett has been seen and evaluated the patient bedside this morning. He is alert awake interactive in no acute distress. He denies any pain discomfort, lightheadedness or any other concerning symptoms or signs. He feels that his lower extremity swelling is improved. He is tolerating oral intake and without any abdominal distress or pain. He is awaiting cardiology's recommendations on rate control and possible discharge. - Constitutional Vitals: Temp Pulse Resp BP Pulse Ox 98.0 F 134 22 94/84 98 10/08/16 07:54 10/08/16 07:55 10/08/16 04:15 10/08/16 04:15 10/08/16 04:15 General appearance: Present: mild distress, A&O X 3, answers questions appropriately Exam: General: Patient alert, awake, oriented 3, interactive, in no acute distress HEENT: Normocephalic, atraumatic, pupils equal reactive to light, nasal cavity patent and open septum median position, oral mucosa moist, uvula midline, neck supple trachea midline no palpable lymphadenopathy, no thyromegaly. Chest: Symmetric bilateral correlating with respiratory effort, effort mildly labored. Cardiac: Irregularly irregular rhythm with rapid ventricular rate, no bruits appreciated bilateral carotids, Radial pulses 2+ bilateral, posterior tibial and dorsal pedal pulses 2+ bilateral. Respiratory: Clear to auscultation all lung acosta. Abdomen: Soft, tympanic in epigastric region, distended, positive bowel sounds, no palpable masses appreciated on examination. Nontender to palpation Extremities: Symmetric bilateral, bilateral trace edema with edema up to mid back bilateral, patient moving all 4 extremities spontaneously. Neurologic: No focal deficits appreciated on examination. Face symmetric, muscle strength symmetric bilateral upper and lower extremities. Internal Medicine: Result - Labs CBC & Chem 7: 10/08/16 05:25 10/08/16 05:25 Labs: Short CBC 10/08/16 Range/Units 05:25 WBC 8.8 (4.3-11.1) K/mcL Hgb 13.4 (12.9-16.9) g/dL Hct 42.7 (37.5-50.1) % Plt Count 106 L (140-400) K/mcL Neutrophils # 7.2 (1.6-8.9) K/mcL BMP 10/08/16 05:25 Sodium 144 Potassium 3.1 L Chloride 101 Carbon Dioxide 35 H BUN 35 H D Creatinine 1.45 H Glucose 131 H Calcium 8.2 L - ABG Interpretation ABG results: PT/INR, D-dimer PT 28.9 Seconds (9.4-12.1) H 10/08/16 05:25 - VTE Documentation of Mechanical Device: Graduated compression elastic hosiery Consult Discharge Plan - Plan Referrals: Jere Kay, METAL MINER BLASTING [Primary Care Provider] - 10/13/16 1:00 pm <Lisbeth Dias - Last Filed: 10/08/16 16:08> Date of Encounter: 10/08/16 - Constitutional Vitals: Temp Pulse Resp BP Pulse Ox 98.1 F 127 20 114/88 96 10/08/16 15:15 10/08/16 15:15 10/08/16 15:15 10/08/16 15:15 10/08/16 15:15 Internal Medicine: Result - Labs CBC & Chem 7: 10/08/16 05:25 10/08/16 05:25 Labs: Short CBC 10/08/16 Range/Units 05:25 WBC 8.8 (4.3-11.1) K/mcL Hgb 13.4 (12.9-16.9) g/dL Hct 42.7 (37.5-50.1) % Plt Count 106 L (140-400) K/mcL Neutrophils # 7.2 (1.6-8.9) K/mcL [facility] 10/08/16 05:25 Sodium 144 Potassium 3.1 L Chloride 101 Carbon Dioxide 35 H BUN 35 H D Creatinine 1.45 H Glucose 131 H Calcium 8.2 L Cardiac Enzymes 10/08/16 Range/Units 09:09 Troponin I 0.03 (0-0.03) ng/mL - ABG Interpretation ABG results: PT/INR, D-dimer PT 28.9 Seconds (9.4-12.1) H 10/08/16 05:25 - Attending Attestation I examined this patient and reviewed laboratory, imaging and all diagnostic data. My medical decision-making was reviewed with Dr Shemar Black - Resident Physician. I agree with the documented findings, disposition and treatment plan as described above.
[2016-10-08] MEDS: Potassium Chloride Elixir 20 MEQ/15 ML UDC PO SCH ×2 (08:43→20:09)
[2016-10-08] MEDS: Metoprolol XL (24 HR) Succ 25 MG TAB.ER.24H PO SCH (09:17)
[2016-10-08] MEDS: *HR* Amiodarone 200 MG TABLET PO SCH ×2 (11:24→20:09)
--- NOTE | 2016-10-08 11:32 | Cardiology Progress Note ---
Date of Encounter: 10/08/16 Time of Encounter: 08:40 Assessment and Plan (1) Atrial fibrillation with RVR Current Visit: Yes Status: Acute Patient currently in A. fib RVR but is asymptomatic. Patient's rate goes from 110 to 170s to 180s any movements. Plan: Start patient on metoprolol succinate 25 mg daily, restart patient's amiodarone 400 mg by mouth. We will continue to assess patient's A. fib RVR status to get patient rate and rhythm controlled. More recommendations to follow after reassessment. Discussion w patient/family: The assessment and plan as outlined above was discussed with the patient and/or family members who expressed understanding and agreement. All questions were answered. Thank you for involving us in the care of your patient. Please call with any questions. Subjective Principal diagnosis: a. fib Interval history: Patient seen and examined at bedside this a.m. Patient reports no issues: No symptoms of chest pain, shortness of breath, lightheadedness, dizziness. Patient actually states he feels great. Objective Vital Signs, Last 4 Hours Temp Pulse Resp BP Pulse Ox 10/08/16 11:19 141 24 127/108 99 10/08/16 11:18 118 10/08/16 10:00 118 24 106/88 100 10/08/16 08:00 155 22 120/92 94 10/08/16 07:55 134 10/08/16 07:54 98.0 F General: Conversant, No Apparent Distress HEENT: Atraumatic, Normocephaly, Mucus Membranes Moist Neck: No JVD, Normal carotid pulses Cardiac: Normal S1 and S2, Other (Regular rate and irregular rhythm) Lungs: Normal Breath Sounds, No Wheeze, Rales, Rhonchi Neuro: Alert and responsive, No focal deficits noted Abdomen: Soft, Non-Tender Skin: No rashes noted on visualized skin Musculoskeletal: No Chest Wall Tenderness Extremities: No Clubbing, No Cyanosis, Normal Pulses, Other (Mild nonpitting edema less than 1+) Results 10/08/16 05:25 10/08/16 05:25 Lab Results 10/08/16 10/08/16 10/08/16 05:25 05:25 05:25 WBC 8.8 Hgb 13.4 Hct 42.7 Plt Count 106 L INR 2.6 Sodium 144 Potassium 3.1 L Chloride 101 Carbon Dioxide 35 H BUN 35 H D Creatinine 1.45 H Glucose 131 H Calcium 8.2 L Magnesium 1.9 Troponin I 10/08/16 09:09 WBC Hgb Hct Plt Count INR Sodium Potassium Chloride Carbon Dioxide BUN Creatinine Glucose Calcium Magnesium Troponin I 0.03 - EKG Interpretation EKG results cardiology: personally reviewed (EKG taken in 2016 0915 hrs. shows A. fib RVR at a ventricular rate [address] elevations or depressions the leads) - VTE Documentation of Mechanical Device: Graduated compression elastic hosiery Consult Discharge Plan - Plan Referrals: Jere Kay, LACQUERER [Primary Care Provider] - 10/13/16 1:00 pm
--- NOTE | 2016-10-08 17:29 | Electrocardiograph Report ---
[place] [id number] Test Date: 2016-10-07 Pat Name: Rosendo Bartlett Department: 111 Room: 2N07 Gender: M Security Strategist: ABRAHAM : 1940 Requested By: Lisbeth Dias Order Number: [id number] Reading MD: Tarik Dent Measurements Intervals [place] Rate: 125 P: CT: 0 QRS: 14 QRSD: 110 T: 165 QT: 338 QTc: 412 Interpretive Statements ATRIAL FIBRILLATION WITH RAPID VENTRICULAR RESPONSE WITH ABERRANT CONDUCTION OR VENTRICULAR PREMATURE COMPLEXES LOW QRS VOLTAGE IN EXTREMITY LEADS ST DEVIATION AND MODERATE T-WAVE ABNORMALITY, CONSIDER LATERAL ISCHEMIA Electronically Signed On 10-08-2016 17:27:42 EDT by Tarik Dent
[2016-10-08] MEDS ORDERED: *HR* Warfarin 3 MG TABLET PO ONE (18:00)
[2016-10-08] MEDS ORDERED: *HR* Metoprolol 5 MG/5 ML VIAL IVP ONE ×2 (19:15→19:16)
[2016-10-08] MEDS ORDERED: *HR* LORazepam 2 MG/ML VIAL IVP ONE (20:19)
[2016-10-08] MEDS: *HR* Digoxin 0.5 MG/2 ML AMPUL IVP ONE ×2 (20:39→23:05)
[2016-10-08] MEDS ORDERED: Furosemide 20 MG/2 ML VIAL IVP ONE ×2 (21:23→21:26)
[2016-10-08] MEDS ORDERED: *HR* Digoxin 0.5 MG/2 ML AMPUL IVP ONE (21:24)
[2016-10-08] MEDS ORDERED: *HR* Digoxin 0.5 MG/2 ML AMPUL ONE ×2 (21:26→22:53)
[2016-10-08 21:43] LABS: ABG Base Excess 6.8 mEq/L (-2.0 to 3.0); ABG HCO3 35.3 mEQ/L (21-27); ABG Oxygen Saturation 100 % (95-98); ABG PCO2 64 mmHg (35-45); ABG PH 7.35 pH Units (7.32-7.45); ABG PO2 262 mmHg (85-104); ABG TCO2 37.3 mEq/L (20-26)
[2016-10-08 21:44] LABS: Blood Gas FiO2 100 %
--- NOTE | 2016-10-08 21:58 | Event Note ---
Date of Encounter: 10/08/16 Time of Encounter: 21:10 [facility] [place] [facility] Hospitalist note: I was paged at 21:03 that the pt is anxious and tachypneic with resp rate of about 40 / min. I immediately went to see the pt in 2N10. Pt seems confused, tachypneic and has increased work of breathing. He is not able to keep the oxygen mask (non-rebreath). O/E: Heart rate on the case monitor is about 150. BP: 120/100. He is diaphoretic. Diminished breath sounds with basal crakles and wheezing. Irregular heart rhythm. B/L pitting leg edema noted. A/P: Acut resp failure: Suspect pulmonary edema. Stat CXR was ordered and I personally reviewed - cardiomegaly and I suspect pulmonary vascular congestion. Stat ABG ordered and started on BiPAP therapy. Pt's sons at the bedside do not want him to be intubated, if BiPAP fails. Lasix 20 mg IV stat given. A fib with RVR: Pt seem to be in RVR through the day. Pt is now on amiodarone infusion. He previously had a dose of metoprolol, which apparently lowered his BP. I have ordered Digoxin IV 250 mcg. I have discussed with Psychiatrist Dr Dent - who thinks that the respiratory distress is possibly driving his RVR. Recommends diuresis with lasix bolus. Can have amiodarone bolus. If he becomes hypotensive, can have DC cardioversion. Agrees with BiPAP therapy. Pt' s sons at the bed side. They think he had frequent BMs and they dont think he is constipated - d/c'd laxatives. Pt's family is concerned that he is not getting much better since admission. They do not want him to be intubated. One of the sons wanted to transfer to [place] - In my opinion, I do not think he is stable for transfer, without a secure airway. I discussed this with family - they want to continue care here. I have discussed the current care, transfer to ICU and the opinion from Dr Dent - they expressed understanding and agree with care.
[2016-10-08] MEDS ORDERED: Levalbuterol Neb 1.25 MG/3 ML IH ONE (22:33)
[2016-10-08 23:13] LABS: Calcium 8.9 mg/dL (8.6-10.8); Phosphorous 3.1 mg/dL (2.3-4.7)
[2016-10-08 23:18] LABS: Potassium 4.2 mEq/L (3.5-4.5)
[2016-10-09] MEDS: Amiodarone Premix 360 MG/200 ML BAG IVC SCH ×3 (03:16→18:20)
[2016-10-09] MEDS ORDERED: *HR* Digoxin 0.5 MG/2 ML AMPUL IVP ONE (05:47)
[2016-10-09] MEDS ORDERED: Furosemide 20 MG/2 ML VIAL IVP ONE (05:47)
[2016-10-09] MEDS ORDERED: Levalbuterol Neb 1.25 MG/3 ML IH ONE (05:48)
[2016-10-09 06:52] LABS: INR 2.3; Prothrombin Time 25.3 Seconds (9.4-12.1)
[2016-10-09 06:53] LABS: Basophils % 0.2 %; Eosinophils % 0.1 %; Hematocrit 46.9 % (37.5-50.1); Hemoglobin 14.3 g/dL (12.9-16.9); Immature Granulocytes % 0.4 % (0-4); Lymphocytes # 0.9 K/mcL (0.6-4.6); Lymphocytes % 8.7 %; Mean Corpuscular HGB Conc 30.5 g/dL (31.6-35.5); Mean Corpuscular Hemoglobin 32.8 pg (28.0-33.3); Mean Corpuscular Volume 107.6 fL (83.0-100.0); Mean Platelet Volume 10.4 fL (9.4-12.4); Monocytes # 0.9 K/mcL (0.0-1.3); Monocytes % 8.5 %; Neutrophils # 8.7 K/mcL (1.6-8.9); Platelet Count 119 K/mcL (140-400); Red Blood Count 4.36 M/mcL (4.19-5.50); Red Cell Distribution Width 14.2 % (11.5-14.5); Segmented Neutrophils % 82.1 %
[2016-10-09 07:09] LABS: Albumin 2.9 g/dL (3.5-5.0); Bilirubin,Total 0.9 mg/dL (0.2-1.2); Calcium 8.6 mg/dL (8.6-10.8); Potassium 4.7 mEq/L (3.5-4.5); Total Protein 5.9 g/dL (6.0-8.3)
[2016-10-09] MEDS: Metoprolol XL (24 HR) Succ 25 MG TAB.ER.24H PO SCH (08:15)
[2016-10-09] MEDS: Pantoprazole 40 MG VIAL IVPB SCH (08:15)
[2016-10-09] MEDS: Aspirin 81 MG TAB.CHEW PO SCH (08:15)
[2016-10-09] MEDS: *HR* Amiodarone 200 MG TABLET PO SCH ×3 (09:17→20:33)
--- NOTE | 2016-10-09 10:46 | Cardiology Progress Note ---
Date of Encounter: 10/09/16 Time of Encounter: 10:44 Assessment and Plan (1) Atrial fibrillation with RVR Current Visit: Yes Status: Acute Significantly better rate contol today. Continue current meds, will decrease amio today. Possible cardioversion early next week if doesnt convert. (2) Systolic CHF, acute on chronic Current Visit: Yes Status: Acute Improved today, will add scheduled lasix. (3) Non-ischemic cardiomyopathy Current Visit: No Status: Acute Discussion w patient/family: The assessment and plan as outlined above was discussed with the patient and/or family members who expressed understanding and agreement. All questions were answered. Thank you for involving us in the care of your patient. Please call with any questions. Subjective Principal diagnosis: a. fib Interval history: Episode of fluid overload last evening. Responded to diuresis and BiPAP. Clinically much better today. Objective Vital Signs, Last 4 Hours Temp Pulse Resp BP Pulse Ox 10/09/16 10:00 86 17 108/79 100 10/09/16 09:00 96 18 104/79 95 10/09/16 08:36 20 116/84 99 10/09/16 08:00 100 16 116/84 95 10/09/16 07:44 97.9 F General: Conversant, No Apparent Distress HEENT: Atraumatic, Normocephaly, Mucus Membranes Moist Neck: No JVD, Normal carotid pulses Cardiac: Other (Irreg.) Lungs: Other (Decreased at bases. ) Neuro: Alert and responsive, No focal deficits noted Abdomen: Soft, Non-Tender Extremities: Other (1-2+ edema at bases.) Results 10/09/16 05:31 10/09/16 05:31 Lab Results 10/08/16 10/09/16 10/09/16 22:52 05:31 05:31 WBC 10.5 Hgb 14.3 Hct 46.9 Plt Count 119 L INR 2.3 Sodium 143 Potassium 4.2 D Chloride 99 Carbon Dioxide 34 H BUN 32 H Creatinine 1.89 H Glucose 177 H Calcium 8.9 Magnesium 2.0 Total Bilirubin AST ALT Alkaline Phosphatase 10/09/16 05:31 WBC Hgb Hct Plt Count INR Sodium 144 Potassium 4.7 H Chloride 102 Carbon Dioxide 35 H BUN 32 H Creatinine 1.64 H Glucose 90 Calcium 8.6 Magnesium Total Bilirubin 0.9 AST 24 ALT 36 Alkaline Phosphatase 81 - VTE Documentation of Mechanical Device: Graduated compression elastic hosiery Consult Discharge Plan - Plan Referrals: Jere Kay CNP [Primary Care Provider] - 10/13/16 1:00 pm
[2016-10-09] MEDS: Furosemide 40 MG TABLET PO SCH (11:10)
[2016-10-09] MEDS: *HR* Digoxin 0.125 MG TABLET PO SCH (11:10)
[2016-10-09] MEDS: Metoprolol XL (24 HR) Succ 50 MG TAB.ER.24H PO SCH (11:59)
[2016-10-09] MEDS: Furosemide 240 MG in D5% in Water 96 ML IVC SCH (12:00)
--- NOTE | 2016-10-09 13:03 | Internal Med Progress Note ---
Date of Encounter: 10/09/16 Time of Encounter: 10:30 - Assessment and plan (1) Atrial fibrillation with RVR Current Visit: Yes Status: Acute Assessment and plan: Mr. Bartlett 76-year-old male with chronic history of atrial fibrillation on warfarin therapy for anticoagulation and rate control with Toprol-XL and amiodarone. Admitted for atrial fibrillation with rapid ventricular rate around 140-150. Overnight, patient developed hypoxia and went into afib with rvr. He received Lasix IV and placed on BIPAP. Appreciate cardiology recommendation. Continue amiodarone drip, Toprol-XL and amiodarone po. (2) Systolic CHF, acute on chronic Current Visit: Yes Status: Acute Assessment and plan: Mr. Bartlett 76-year-old male with a known history of left ventricular systolic dysfunction with an LVEF of 25% with his last echocardiogram completed on 2016, that also demonstrated severe dilated right atrium, severely dilated left atrium, moderate mild mitral regurgitation, and severe tricuspid regurgitation the setting of mild pulmonary hypertension with an estimated RVSP of 40. - He presented in atrial fibrillation with rapid ventricular rate in the setting of systolic heart failure exacerbation. His admitting BNP was 1675 with elevated troponins of 0.05-0.05 and 0.04. Appreciate cardiology recommendation. started on oral furosemide. Continue 1.5 L fluid restrictions, 2 g sodium restricted diet. (3) Acute kidney injury Current Visit: Yes Status: Acute Assessment and plan: Likely cardiorenal. Baseline creatinine 0.9 and GFR greater than 60. - Likely secondary to systolic heart failure and atrial fibrillation with RVR perpetuating prerenal GUILLAUME. - Patient also has complicating factor of BPH, Feliciano catheter will help with adequate output in the setting of continuous diuresis. 10/09/2016: Renal function improving slowly. creatinine and GFR trending up. continue to monitor. avoid nephrotoxic agents. (4) HTN (hypertension) Current Visit: Yes Status: Acute Assessment and plan: Continue to hold lisinopril in the setting of acute kidney injury. Qualifiers: Hypertension type: essential hypertension Qualified Code(s): I10 - Essential (primary) hypertension (5) Non-ischemic cardiomyopathy Current Visit: No Status: Acute - Subjective Interval history: patient reports some shortness of breath on exertion. no chest pain - Constitutional Vitals: Temp Pulse Resp BP Pulse Ox 97.9 F 96 22 119/95 98 10/09/16 11:24 10/09/16 12:00 10/09/16 12:00 10/09/16 12:00 10/09/16 12:00 General appearance: Present: cooperative, A&O X 3, no acute distress, answers questions appropriately - Eye Eye exam: Present: PERRL, sclera anicteric - Neck Neck exam general surgery: Present: supple, trachea midline. Absent: lymphadenopathy - Respiratory Respiratory exam: Present: CTAB - Cardiovascular Cardiovascular exam: Present: RRR - GI/Abdominal GI/Abdominal exam: Present: normal bowel sounds, soft. Absent: distended, tenderness - Extremities Exam Extremities exam: Present: pedal edema - Back Exam Back exam: Absent: CVA tenderness (L), CVA tenderness (R) - Neurological Exam Neurological exam: Present: alert, oriented X3, no focal deficits, strengths equal and symetr throughout. Absent: facial droop, speech deficit Internal Medicine: Result - Labs CBC & Chem 7: 10/09/16 05:31 10/09/16 05:31 Labs: Short CBC 10/09/16 Range/Units 05:31 WBC 10.5 (4.3-11.1) K/mcL Hgb 14.3 (12.9-16.9) g/dL Hct 46.9 (37.5-50.1) % Plt Count 119 L (140-400) K/mcL Neutrophils # 8.7 (1.6-8.9) K/mcL BMP 10/08/16 10/09/16 22:52 05:31 Sodium 143 144 Potassium 4.2 D 4.7 H Chloride 99 102 Carbon Dioxide 34 H 35 H BUN 32 H 32 H Creatinine 1.89 H 1.64 H Glucose 177 H 90 Calcium 8.9 8.6 Liver Function 10/09/16 Range/Units 05:31 Total Bilirubin 0.9 (0.2-1.2) mg/dL AST 24 (5-34) Units/L ALT 36 (0-55) Units/L Alkaline Phosphatase 81 (38-126) Units/L Albumin 2.9 L (3.5-5.0) g/dL - ABG Interpretation ABG results: ABG ABG pH 7.35 pH Units (7.32-7.45) 10/08/16 21:38 ABG pCO2 64 mmHg (35-45) H 10/08/16 21:38 ABG pO2 262 mmHg (85-104) H 10/08/16 21:38 ABG O2 Saturation 100 % (95-98) H 10/08/16 21:38 PT/INR, D-dimer PT 25.3 Seconds (9.4-12.1) H 10/09/16 05:31 - Impressions Impressions Chest X-Ray 10/08/16 21:09 IMPRESSION: Mild cardiomegaly. No acute cardiopulmonary disease. D/ / Buck Almazan MD / Buck Almazan MD Interpreting Provider: Buck Almazan MD - VTE Documentation of Mechanical Device: Graduated compression elastic hosiery Consult Discharge Plan - Plan Referrals: Jere Kay CNP [Primary Care Provider] - 10/13/16 1:00 pm
[2016-10-09] MEDS ORDERED: *HR* Warfarin 1 MG TABLET PO ONE ×2 (18:00→18:45)
[2016-10-09] MEDS ORDERED: *HR* Warfarin 2 MG TABLET PO ONE (18:00)
[2016-10-09] MEDS: *HR* Metoprolol 5 MG/5 ML VIAL IVP PRN (18:47)
[2016-10-10] MEDS: *HR* Metoprolol 5 MG/5 ML VIAL IVP PRN (00:13)
[2016-10-10 03:20] LABS: Basophils % 0.2 %; Eosinophils # 0.2 K/mcL (0.0-0.6); Eosinophils % 1.3 %; Hematocrit 46.5 % (37.5-50.1); Hemoglobin 14.7 g/dL (12.9-16.9); Immature Granulocytes % 0.8 % (0-4); Immature Platelets 3.3 % (1.1-6.1); Lymphocytes # 0.7 K/mcL (0.6-4.6); Lymphocytes % 5.6 %; Mean Corpuscular HGB Conc 31.6 g/dL (31.6-35.5); Mean Corpuscular Hemoglobin 33.4 pg (28.0-33.3); Mean Corpuscular Volume 105.7 fL (83.0-100.0); Mean Platelet Volume 10.5 fL (9.4-12.4); Monocytes # 0.9 K/mcL (0.0-1.3); Monocytes % 7.6 %; Neutrophils # 10.1 K/mcL (1.6-8.9); Platelet Count 116 K/mcL (140-400); Red Cell Distribution Width 14.3 % (11.5-14.5); Segmented Neutrophils % 84.5 %
[2016-10-10 03:23] LABS: INR 2.3; Prothrombin Time 25.3 Seconds (9.4-12.1)
[2016-10-10 03:30] LABS: BUN/Creatinine Ratio 22 (6-26); Blood Urea Nitrogen 29 mg/dL (8-26); Calcium 8.6 mg/dL (8.6-10.8); Carbon Dioxide 32 mEq/L (19-29); Chloride 100 mEq/L (98-109); Glucose 109 mg/dL (70-99); Magnesium 1.5 mg/dL (1.6-2.6); Osmolality,Calculated 296 (280-300); Potassium 4.3 mEq/L (3.5-4.5); Sodium 140 mEq/L (136-145); eGFR For African Americans > 60 (> 60); eGFR For Non-African Americans 54 (> 60)
[2016-10-10] MEDS: Amiodarone Premix 360 MG/200 ML BAG IVC SCH ×4 (06:15→19:41)
[2016-10-10] MEDS: Metoprolol XL (24 HR) Succ 25 MG TAB.ER.24H PO SCH (07:24)
[2016-10-10] MEDS: *HR* Digoxin 0.125 MG TABLET PO SCH (07:24)
[2016-10-10] MEDS: Aspirin 81 MG TAB.CHEW PO SCH (07:25)
[2016-10-10] MEDS: *HR* Amiodarone 200 MG TABLET PO SCH ×2 (07:25→20:08)
[2016-10-10] MEDS: Furosemide 40 MG TABLET PO SCH (07:27)
[2016-10-10] MEDS: Pantoprazole 40 MG VIAL IVPB SCH (07:27)
[2016-10-10] MEDS ORDERED: Magnesium Sulfate 1 GM in D5% in Water 100 ML IVPB ONE (09:20)
[2016-10-10] MEDS ORDERED: Levalbuterol 1 PUFF INHALER IH PRN (10:51)
[2016-10-10] MEDS ORDERED: Budesonide Neb 0.5 MG/2 ML IH SCH (11:00)
--- NOTE | 2016-10-10 11:09 | Cardiology Progress Note ---
Date of Encounter: 10/10/16 Time of Encounter: 11:06 Assessment and Plan (1) Atrial fibrillation with RVR Current Visit: Yes Status: Acute Significantly better rate contol today. Continue current meds, will decrease amio today. Possible cardioversion early next week if doesnt convert. (2) Systolic CHF, acute on chronic Current Visit: Yes Status: Acute Improved today, will add scheduled lasix. Unsure if these acute exacerbations are primarily cardiac or respiratory. Appears that respiratory distress is driving RVR. When respiratory status stable could consider cardioversion. If no etiology form respiratory standpoint may need to consider left heart cath. (3) Non-ischemic cardiomyopathy Current Visit: No Status: Acute Discussion w patient/family: The assessment and plan as outlined above was discussed with the patient and/or family members who expressed understanding and agreement. All questions were answered. Thank you for involving us in the care of your patient. Please call with any questions. Subjective Principal diagnosis: a. fib Interval history: Back on Bipap today. Somewhat worse RVR today. Objective Vital Signs, Last 4 Hours Temp Pulse Resp BP Pulse Ox 10/10/16 10:00 100 22 98/66 100 10/10/16 09:27 33 73/58 99 10/10/16 09:00 116 33 73/58 99 10/10/16 08:00 120 22 120/99 100 10/10/16 07:17 98.6 F General: Conversant, No Apparent Distress HEENT: Atraumatic, Normocephaly, Mucus Membranes Moist Neck: No JVD, Normal carotid pulses Cardiac: Other (Irreg) Lungs: Other (diffuse ronchi) Results 10/10/16 02:31 10/10/16 02:31 Lab Results 10/10/16 10/10/16 10/10/16 02:31 02:31 02:31 WBC 11.9 H Hgb 14.7 Hct 46.5 Plt Count 116 L INR 2.3 Sodium 140 Potassium 4.3 Chloride 100 Carbon Dioxide 32 H BUN 29 H Creatinine 1.29 H Glucose 109 H Calcium 8.6 Magnesium 1.5 L - VTE Documentation of Mechanical Device: Graduated compression elastic hosiery Consult Discharge Plan - Plan Referrals: Jere Kay, MANAGER [employer] [Primary Care Provider] - 10/13/16 1:00 pm
[2016-10-10] MEDS: Levalbuterol Neb 0.63 MG/3 ML IH SCH ×3 (11:39→20:20)
[2016-10-10] MEDS ORDERED: Ipratropium Neb 0.5 MG NEBULIZER IH SCH (12:00)
--- NOTE | 2016-10-10 12:17 | Internal Med Progress Note ---
Date of Encounter: 10/10/16 Time of Encounter: 12:15 - Assessment and plan (1) Atrial fibrillation with RVR Current Visit: Yes Status: Acute Assessment and plan: Mr. Bartlett 76-year-old male with chronic history of atrial fibrillation on warfarin therapy for anticoagulation and rate control with Toprol-XL and amiodarone. Admitted for atrial fibrillation with rapid ventricular rate around 140-150. 10/09: Overnight, patient developed hypoxia and went into afib with rvr. He received Lasix IV and placed on BIPAP. Appreciate cardiology recommendation. Continue amiodarone drip, Toprol-XL and amiodarone po. (2) Acute on chronic respiratory failure with hypoxemia Current Visit: Yes Status: Acute Assessment and plan: secondary to systolic heart failure in the setting of COPD. add nebs. consult pulmonology. continue furosemide. (3) Systolic CHF, acute on chronic Current Visit: Yes Status: Acute Assessment and plan: Mr. Bartlett 76-year-old male with a known history of left ventricular systolic dysfunction with an LVEF of 25% with his last echocardiogram completed on 2016, that also demonstrated severe dilated right atrium, severely dilated left atrium, moderate mild mitral regurgitation, and severe tricuspid regurgitation the setting of mild pulmonary hypertension with an estimated RVSP of 40. - He presented in atrial fibrillation with rapid ventricular rate in the setting of systolic heart failure exacerbation. His admitting BNP was 1675 with elevated troponins of 0.05-0.05 and 0.04. Appreciate cardiology recommendation. started on oral furosemide. Continue 1.5 L fluid restrictions, 2 g sodium restricted diet. (4) Acute kidney injury Current Visit: Yes Status: Acute Assessment and plan: Likely cardiorenal. Baseline creatinine 0.9 and GFR greater than 60. - Likely secondary to systolic heart failure and atrial fibrillation with RVR perpetuating prerenal GUILLAUME. - Patient also has complicating factor of BPH, Feliciano catheter will help with adequate output in the setting of continuous diuresis. 10/09/2016: Renal function improving slowly. creatinine and GFR trending up. continue to monitor. avoid nephrotoxic agents. (5) HTN (hypertension) Current Visit: Yes Status: Acute Assessment and plan: Continue to hold lisinopril in the setting of acute kidney injury. Qualifiers: Hypertension type: essential hypertension Qualified Code(s): I10 - Essential (primary) hypertension (6) Non-ischemic cardiomyopathy Current Visit: No Status: Acute - Subjective Interval history: patient's heart rate increased up to 140s overnight, he was placed on BIPAP and re-started on amiodarone drip. - Constitutional Vitals: Temp Pulse Resp BP Pulse Ox 97.8 F 130 26 109/94 97 10/10/16 11:47 10/10/16 12:00 10/10/16 12:00 10/10/16 12:00 10/10/16 12:00 Exam: patient is sleeping, he open his eyes and moves his extremities. - Respiratory Respiratory exam: Present: rhonchi - Cardiovascular Cardiovascular exam: Present: irregular rhythm, tachycardia - GI/Abdominal GI/Abdominal exam: Present: normal bowel sounds, soft. Absent: distended, tenderness - Extremities Exam Extremities exam: Present: pedal edema - Skin Skin exam: Absent: rash Internal Medicine: Result - Labs CBC & Chem 7: 10/10/16 02:31 10/10/16 02:31 Labs: Short CBC 10/10/16 Range/Units 02:31 WBC 11.9 H (4.3-11.1) K/mcL Hgb 14.7 (12.9-16.9) g/dL Hct 46.5 (37.5-50.1) % Plt Count 116 L (140-400) K/mcL Neutrophils # 10.1 H (1.6-8.9) K/mcL BMP 10/10/16 02:31 Sodium 140 Potassium 4.3 Chloride 100 Carbon Dioxide 32 H BUN 29 H Creatinine 1.29 H Glucose 109 H Calcium 8.6 - ABG Interpretation ABG results: ABG ABG pH 7.35 pH Units (7.32-7.45) 10/08/16 21:38 ABG pCO2 64 mmHg (35-45) H 10/08/16 21:38 ABG pO2 262 mmHg (85-104) H 10/08/16 21:38 ABG O2 Saturation 100 % (95-98) H 10/08/16 21:38 PT/INR, D-dimer PT 25.3 Seconds (9.4-12.1) H 10/10/16 02:31 - VTE Documentation of Mechanical Device: Graduated compression elastic hosiery Consult Discharge Plan - Plan Referrals: Jere Kay, [employer]ING OPERATOR [Primary Care Provider] - 10/13/16 1:00 pm
[2016-10-10 13:48] LABS: ABG Base Excess 15.6 mEq/L (-2.0 to 3.0); ABG HCO3 42.7 mEQ/L (21-27); ABG Oxygen Saturation 99 % (95-98); ABG PCO2 60 mmHg (35-45); ABG PH 7.46 pH Units (7.32-7.45); ABG PO2 139 mmHg (85-104); ABG TCO2 44.5 mEq/L (20-26); Blood Gas FiO2 40 %
[2016-10-10] MEDS ORDERED: Furosemide 40 MG TABLET PO ONE (13:48)
--- NOTE | 2016-10-10 13:49 | Pulmonology Progress Note ---
<Lyndsay Zazueta Tae - Last Filed: 10/10/16 13:59> Date of Encounter: 10/10/16 Time of Encounter: 13:46 Assessment and Plan (1) Acute on chronic respiratory failure with hypoxemia Current Visit: Yes Status: Acute ON AIR TALENT: Awake alert and oriented. Agitated at times due to BIPAP. Pulmonary: Patient did see Dr. Salgado in 2011 and was diagnosed with severe COPD. We discontinued Atrovent and Pulmicort Neb. We will continue Zopenex. We have added Symbicort and Spiriva. Continue BIPAP on and off. ABG pH 7.46, pCO2 60, pO2 139, measured HCO3 42.7. Cardiovascular: Afib RVR, AICD in place, blood pressures are stable 100s to 110s systolic. Echo from 09/23/16 LVEF 25% severe LV dysfunction, mildly dilated RV with moderate RV hypokinesis, severely dilated R atrium and severely dilated L atrium. Cardiology is following and considering cardioversion tomorrow pending improvement of lung function. Patient is on Amiodarone, Digoxin, Metoprolol XL. We added one dose of Lasix 40mg today. Length of stay - 2.5L fluid balance. BNP 1300 three days ago. Repeat BNP, pending. GI/Nutrition/Electrolytes/Fluids: Electrolyte protocol ordered. Caution with calcium treatment since patient is on Digoxin. GI Prophylaxis: protonix. Renal: Evidence of GUILLAUME, improving. SCr 1.29 down from 1.64 yesterday. Up from baseline of 0.9. Good UOP, 1.5L in last [address] ID: Leukocytosis with WBC 11.9 up from 10.5 yesterday. Continue to monitor. Patient has remained afebrile overnight. Heme/Onc: Monitor leukocytosis. DVT Prophylaxis: On coumadin, INR 2.3 Endocrine: Blood sugars stable 90-110, continue to monitor Lines: all lines checked and no evidence of infections hector peripheral Skin: skin care to prevent pressure ulcers per nursing routine care. Code status: FULL CODE (2) COPD (chronic obstructive pulmonary disease) Current Visit: Yes Status: Acute (3) Atrial fibrillation with RVR Current Visit: Yes Status: Acute (4) Systolic CHF, acute on chronic Current Visit: Yes Status: Acute (5) Non-ischemic cardiomyopathy Current Visit: No Status: Acute (6) AICD (automatic implantable cardioverter defibrillator) at end of life Current Visit: No Status: Acute Qualifiers: Encounter type: initial encounter Qualified Code(s): T82.198A - Other mechanical complication of other cardiac electronic device, initial encounter (7) DVT prophylaxis Current Visit: Yes Status: Acute Subjective Principal diagnosis: a. fib Interval history: Mr Bartlett is a 76 year old Objective PUL Vital signs: Last Vital Signs Temp 97.8 F 10/10/16 11:47 Pulse 109 10/10/16 13:00 Resp 24 10/10/16 13:00 BP 111/63 10/10/16 13:00 Pulse Ox 100 10/10/16 13:00 Results - Laboratory Findings CBC and BMP: 10/10/16 02:31 10/10/16 02:31 ABG ABG pH 7.35 pH Units (7.32-7.45) 10/08/16 21:38 ABG pCO2 64 mmHg (35-45) H 10/08/16 21:38 ABG pO2 262 mmHg (85-104) H 10/08/16 21:38 ABG O2 Saturation 100 % (95-98) H 10/08/16 21:38 PT/INR, D-dimer PT 25.3 Seconds (9.4-12.1) H 10/10/16 02:31 Abnormal lab findings: Abnormal lab results WBC 11.9 K/mcL (4.3-11.1) H 10/10/16 02:31 MCV 105.7 fL (83.0-100.0) H 10/10/16 02:31 MCH 33.4 pg (28.0-33.3) H 10/10/16 02:31 Plt Count 116 K/mcL (140-400) L 10/10/16 02:31 Neutrophils # 10.1 K/mcL (1.6-8.9) H 10/10/16 02:31 Nucleated RBCs/100 WBC 0.2 /100 WBC (0) H 10/07/16 06:15 PT 25.3 Seconds (9.4-12.1) H 10/10/16 02:31 APTT 40.1 Seconds (26.0-36.0) H 10/04/16 14:18 ABG pCO2 64 mmHg (35-45) H 10/08/16 21:38 ABG pO2 262 mmHg (85-104) H 10/08/16 21:38 ABG HCO3 35.3 mEQ/L (21-27) H 10/08/16 21:38 ABG Total CO2 37.3 mEq/L (20-26) H 10/08/16 21:38 ABG O2 Saturation 100 % (95-98) H 10/08/16 21:38 ABG Base Excess 6.8 mEq/L (-2.0 to 3.0) H 10/08/16 21:38 Carbon Dioxide 32 mEq/L (19-29) H 10/10/16 02:31 BUN 29 mg/dL (8-26) H 10/10/16 02:31 Creatinine 1.29 mg/dL (0.72-1.25) H 10/10/16 02:31 Est GFR (Non-Af Amer) 54 (> 60) L 10/10/16 02:31 Glucose 109 mg/dL (70-99) H 10/10/16 02:31 POC Glucose 154 (58-89) H 10/08/16 22:17 Magnesium 1.5 mg/dL (1.6-2.6) L 10/10/16 02:31 B-Natriuretic Peptide 1333 pg/mL (0-100) H 10/07/16 06:15 Serum Total Protein 5.9 g/dL (6.0-8.3) L 10/09/16 05:31 Albumin 2.9 g/dL (3.5-5.0) L 10/09/16 05:31 Albumin/Globulin Ratio 1.0 (1.1-2.2) L 10/09/16 05:31 Ur Squamous Epith Cells Moderate per lpf (None-Few) H 10/06/16 12:08 - Clinical Findings Intake & Output: Intake & Output 10/09/16 10/10/16 10/10/16 23:59 07:59 15:59 Intake Total 240 / 240 137 / 137 542 / 542 Output Total 1000 / 1000 450 / 450 1000 / 1000 Balance -760 / -760 -313 / -313 -458 / -458 Weight 93.304 kg - VTE Documentation of Mechanical Device: Graduated compression elastic hosiery Consult Discharge Plan - Plan Referrals: Jere Kay, FOREST E[employer]OMIST [Primary Care Provider] - 10/13/16 1:00 pm <DamianRenée M - Last Filed: 10/10/16 14:36> Date of Encounter: 10/10/16 Objective PUL Vital signs: Last Vital Signs Temp 97.8 F 10/10/16 11:47 Pulse 109 10/10/16 13:00 Resp 24 10/10/16 13:00 BP 111/63 10/10/16 13:00 Pulse Ox 100 10/10/16 13:00 Results - Laboratory Findings CBC and BMP: 10/10/16 02:31 10/10/16 02:31 ABG ABG pH 7.46 pH Units (7.32-7.45) H 10/10/16 13:34 ABG pCO2 60 mmHg (35-45) H 10/10/16 13:34 ABG pO2 139 mmHg (85-104) H 10/10/16 13:34 ABG O2 Saturation 99 % (95-98) H 10/10/16 13:34 PT/INR, D-dimer PT 25.3 Seconds (9.4-12.1) H 10/10/16 02:31 Abnormal lab findings: Abnormal lab results WBC 11.9 K/mcL (4.3-11.1) H 10/10/16 02:31 MCV 105.7 fL (83.0-100.0) H 10/10/16 02:31 MCH 33.4 pg (28.0-33.3) H 10/10/16 02:31 Plt Count 116 K/mcL (140-400) L 10/10/16 02:31 Neutrophils # 10.1 K/mcL (1.6-8.9) H 10/10/16 02:31 Nucleated RBCs/100 WBC 0.2 /100 WBC (0) H 10/07/16 06:15 PT 25.3 Seconds (9.4-12.1) H 10/10/16 02:31 APTT 40.1 Seconds (26.0-36.0) H 10/04/16 14:18 ABG pH 7.46 pH Units (7.32-7.45) H 10/10/16 13:34 ABG pCO2 60 mmHg (35-45) H 10/10/16 13:34 ABG pO2 139 mmHg (85-104) H 10/10/16 13:34 ABG HCO3 42.7 mEQ/L (21-27) H 10/10/16 13:34 ABG Total CO2 44.5 mEq/L (20-26) H 10/10/16 13:34 ABG O2 Saturation 99 % (95-98) H 10/10/16 13:34 ABG Base Excess 15.6 mEq/L (-2.0 to 3.0) H 10/10/16 13:34 Carbon Dioxide 32 mEq/L (19-29) H 10/10/16 02:31 BUN 29 mg/dL (8-26) H 10/10/16 02:31 Creatinine 1.29 mg/dL (0.72-1.25) H 10/10/16 02:31 Est GFR (Non-Af Amer) 54 (> 60) L 10/10/16 02:31 Glucose 109 mg/dL (70-99) H 10/10/16 02:31 POC Glucose 154 (58-89) H 10/08/16 22:17 Magnesium 1.5 mg/dL (1.6-2.6) L 10/10/16 02:31 B-Natriuretic Peptide 1333 pg/mL (0-100) H 10/07/16 06:15 Serum Total Protein 5.9 g/dL (6.0-8.3) L 10/09/16 05:31 Albumin 2.9 g/dL (3.5-5.0) L 10/09/16 05:31 Albumin/Globulin Ratio 1.0 (1.1-2.2) L 10/09/16 05:31 Ur Squamous Epith Cells Moderate per lpf (None-Few) H 10/06/16 12:08 - Clinical Findings Intake & Output: Intake & Output 10/09/16 10/10/16 10/10/16 23:59 07:59 15:59 Intake Total 240 / 240 137 / 137 542 / 542 Output Total 1000 / 1000 450 / 450 1000 / 1000 Balance -760 / -760 -313 / -313 -458 / -458 Weight 93.304 kg
[2016-10-10] MEDS ORDERED: Potassium Phosphate 44 MEQ in 0.9 % Sodium Chloride 250 ML IVPB PRN (14:02)
[2016-10-10] MEDS: Budesonide/Formoterol 160/4.5 MDI IH SCH ×2 (14:21→20:20)
--- NOTE | 2016-10-10 14:27 | Pulmonology Consult Note ---
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 Agitated at times due to BIPAP. Pulmonary: Patient did see Dr. Salgado in 2011 and was diagnosed with severe COPD. We discontinued Atrovent and Pulmicort Neb. We will continue Zopenex. We have added Symbicort and Spiriva. Continue BIPAP on and off. ABG pH 7.46, pCO2 60, pO2 139, measured HCO3 42.7. Cardiovascular: Afib RVR, AICD in place, blood pressures are stable 100s to 110s systolic. Echo from 09/23/16 LVEF 25% severe LV dysfunction, mildly dilated RV with moderate RV hypokinesis, severely dilated R atrium and severely dilated L atrium. Cardiology is following and considering cardioversion tomorrow pending improvement of lung function. Patient is on Amiodarone, Digoxin, Metoprolol XL. We added one dose of Lasix 40mg today. Length of stay - 2.5L fluid balance. BNP 1300 three days ago. Repeat BNP, pending. GI/Nutrition/Electrolytes/Fluids: Electrolyte protocol ordered. Caution with calcium treatment since patient is on Digoxin. GI Prophylaxis: protonix. Renal: Evidence of GUILLAUME, improving. SCr 1.29 down from 1.64 yesterday. Up from baseline of 0.9. Good UOP, 1.5L in last [address] ID: Leukocytosis with WBC 11.9 up from 10.5 yesterday. Continue to monitor. Patient has remained afebrile overnight. Heme/Onc: Monitor leukocytosis. DVT Prophylaxis: On coumadin, INR 2.3 Endocrine: Blood sugars stable 90-110, continue to monitor Lines: all lines checked and no evidence of infections hector peripheral Skin: skin care to prevent pressure ulcers per nursing routine care. Code status: FULL CODE (2) COPD (chronic obstructive pulmonary disease) Current Visit: Yes Status: Acute (3) Atrial fibrillation with RVR Current Visit: Yes Status: Acute (4) Systolic CHF, acute on chronic Current Visit: Yes Status: Acute (5) Non-ischemic cardiomyopathy Current Visit: No Status: Acute (6) AICD (automatic implantable cardioverter defibrillator) at end of life Current Visit: No Status: Acute Qualifiers: Encounter type: initial encounter Qualified Code(s): T82.198A - Other mechanical complication of other cardiac electronic device, initial encounter (7) DVT prophylaxis Current Visit: Yes Status: Acute History of Present Illness Consult date: 10/10/16 Requesting physician: Lisbeth Dias Reason for consult: COPD, hypoxemia Chief complaint: afib RVR History of present illness: Patient is a 76-year-old male who was admitted to ICU due to unstable blood pressure secondary to A. fib RVR. Past Med Surg Social Fam HX - Past Medical History Medical history: atrial fibrillation, COPD, CVA, DVT, hyperlipidemia, hypertension, myocardial infarction Psychiatric history: no psych history - Past Surgical History Surgical History: pacemaker/AICD - Social History Smoking Status: Former smoker Smokeless Tobacco Status: No Alcohol use: none Drug use: none - Family History Mother Living Status: Still Living Cause of : heart disease Father Living Status: Age at : 78 Cause of : heart Hx Family Cardiac Disorders: Yes Medications and Allergies Allopurinol [Zyloprim 300 MG] 300 mg PO DAILY 12/01/15 [History] Aspirin 81 mg PO DAILY 12/01/15 [History] Furosemide [Lasix] 40 mg PO DAILY 12/01/15 [History] Lisinopril [Zestril] 20 mg PO DAILY 12/01/15 [History] Warfarin [Coumadin] 3 mg PO MOWEFR 12/01/15 [History] Albuterol Sulfate [Proair Hfa] 2 puff IH Q4H PRN 10/04/16 [History] Amiodarone [Cordarone] 200 mg PO DAILY 10/04/16 [History] Fluticasone/Salmeterol [Advair Hfa 115-21 Mcg Inhaler] 2 puff IH BID 10/04/16 [ History] Metoprolol Succinate 100 mg PO DAILY 10/04/16 [History] Oxygen 2 l NS AD 10/04/16 [History] Tramadol HCl [Ultram] 50 mg PO Q6H PRN 10/04/16 [History] Warfarin [Coumadin] 1.5 mg PO SUTUTHSA 10/04/16 [History] Allergies No Known Allergies Allergy (Verified 09/13/16 00:44) All Systems: A 10-system review of systems was performed and is negative for pertinent findings except as documented above in the HPI. Physical Examination Vital Signs: Vital Signs, Last 4 Hours Temp Pulse Resp BP Pulse Ox 10/10/16 14:00 105 22 97/70 95 10/10/16 13:00 109 24 111/63 100 10/10/16 12:00 130 26 109/94 97 10/10/16 11:47 97.8 F 10/10/16 11:42 23 100 10/10/16 11:00 109 23 100/89 100 Results - Laboratory Findings CBC and BMP: 10/10/16 02:31 10/10/16 02:31 ABG ABG pH 7.46 pH Units (7.32-7.45) H 10/10/16 13:34 ABG pCO2 60 mmHg (35-45) H 10/10/16 13:34 ABG pO2 139 mmHg (85-104) H 10/10/16 13:34 ABG O2 Saturation 99 % (95-98) H 10/10/16 13:34 PT/INR, D-dimer PT 25.3 Seconds (9.4-12.1) H 10/10/16 02:31 Abnormal lab findings: Abnormal lab results WBC 11.9 K/mcL (4.3-11.1) H 10/10/16 02:31 MCV 105.7 fL (83.0-100.0) H 10/10/16 02:31 MCH 33.4 pg (28.0-33.3) H 10/10/16 02:31 Plt Count 116 K/mcL (140-400) L 10/10/16 02:31 Neutrophils # 10.1 K/mcL (1.6-8.9) H 10/10/16 02:31 Nucleated RBCs/100 WBC 0.2 /100 WBC (0) H 10/07/16 06:15 PT 25.3 Seconds (9.4-12.1) H 10/10/16 02:31 APTT 40.1 Seconds (26.0-36.0) H 10/04/16 14:18 ABG pH 7.46 pH Units (7.32-7.45) H 10/10/16 13:34 ABG pCO2 60 mmHg (35-45) H 10/10/16 13:34 ABG pO2 139 mmHg (85-104) H 10/10/16 13:34 ABG HCO3 42.7 mEQ/L (21-27) H 10/10/16 13:34 ABG Total CO2 44.5 mEq/L (20-26) H 10/10/16 13:34 ABG O2 Saturation 99 % (95-98) H 10/10/16 13:34 ABG Base Excess 15.6 mEq/L (-2.0 to 3.0) H 10/10/16 13:34 Carbon Dioxide 32 mEq/L (19-29) H 10/10/16 02:31 BUN 29 mg/dL (8-26) H 10/10/16 02:31 Creatinine 1.29 mg/dL (0.72-1.25) H 10/10/16 02:31 Est GFR (Non-Af Amer) 54 (> 60) L 10/10/16 02:31 Glucose 109 mg/dL (70-99) H 10/10/16 02:31 POC Glucose 154 (58-89) H 10/08/16 22:17 Magnesium 1.5 mg/dL (1.6-2.6) L 10/10/16 02:31 B-Natriuretic Peptide 1333 pg/mL (0-100) H 10/07/16 06:15 Serum Total Protein 5.9 g/dL (6.0-8.3) L 10/09/16 05:31 Albumin 2.9 g/dL (3.5-5.0) L 10/09/16 05:31 Albumin/Globulin Ratio 1.0 (1.1-2.2) L 10/09/16 05:31 Ur Squamous Epith Cells Moderate per lpf (None-Few) H 10/06/16 12:08 - Clinical Findings Intake & Output: Intake & Output 10/09/16 10/10/16 10/10/16 23:59 07:59 15:59 Intake Total 240 / 240 137 / 137 542 / 542 Output Total 1000 / 1000 450 / 450 1000 / 1000 Balance -760 / -760 -313 / -313 -458 / -458 Weight 93.304 kg Consult Discharge Plan - Plan Referrals: Jere Kay, JOURNEYMAN WIREMAN [Primary Care Provider] - 10/13/16 1:00 pm <DamianRenée M - Last Filed: 10/10/16 14:37> Date of Encounter: 10/10/16 All Systems: A 10-system review of systems was performed and is negative for pertinent findings except as documented above in the HPI. Physical Examination Vital Signs: Vital Signs, Last 4 Hours Temp Pulse Resp BP Pulse Ox 10/10/16 14:00 105 22 97/70 95 10/10/16 13:00 109 24 111/63 100 10/10/16 12:00 130 26 109/94 97 10/10/16 11:47 97.8 F 10/10/16 11:42 23 100 10/10/16 11:00 109 23 100/89 100 Results - Laboratory Findings CBC and BMP: 10/10/16 02:31 10/10/16 02:31 ABG ABG pH 7.46 pH Units (7.32-7.45) H 10/10/16 13:34 ABG pCO2 60 mmHg (35-45) H 10/10/16 13:34 ABG pO2 139 mmHg (85-104) H 10/10/16 13:34 ABG O2 Saturation 99 % (95-98) H 10/10/16 13:34 PT/INR, D-dimer PT 25.3 Seconds (9.4-12.1) H 10/10/16 02:31 Abnormal lab findings: Abnormal lab results WBC 11.9 K/mcL (4.3-11.1) H 10/10/16 02:31 MCV 105.7 fL (83.0-100.0) H 10/10/16 02:31 MCH 33.4 pg (28.0-33.3) H 10/10/16 02:31 Plt Count 116 K/mcL (140-400) L 10/10/16 02:31 Neutrophils # 10.1 K/mcL (1.6-8.9) H 10/10/16 02:31 Nucleated RBCs/100 WBC 0.2 /100 WBC (0) H 10/07/16 06:15 PT 25.3 Seconds (9.4-12.1) H 10/10/16 02:31 APTT 40.1 Seconds (26.0-36.0) H 10/04/16 14:18 ABG pH 7.46 pH Units (7.32-7.45) H 10/10/16 13:34 ABG pCO2 60 mmHg (35-45) H 10/10/16 13:34 ABG pO2 139 mmHg (85-104) H 10/10/16 13:34 ABG HCO3 42.7 mEQ/L (21-27) H 10/10/16 13:34 ABG Total CO2 44.5 mEq/L (20-26) H 10/10/16 13:34 ABG O2 Saturation 99 % (95-98) H 10/10/16 13:34 ABG Base Excess 15.6 mEq/L (-2.0 to 3.0) H 10/10/16 13:34 Carbon Dioxide 32 mEq/L (19-29) H 10/10/16 02:31 BUN 29 mg/dL (8-26) H 10/10/16 02:31 Creatinine 1.29 mg/dL (0.72-1.25) H 10/10/16 02:31 Est GFR (Non-Af Amer) 54 (> 60) L 10/10/16 02:31 Glucose 109 mg/dL (70-99) H 10/10/16 02:31 POC Glucose 154 (58-89) H 10/08/16 22:17 Magnesium 1.5 mg/dL (1.6-2.6) L 10/10/16 02:31 B-Natriuretic Peptide 1333 pg/mL (0-100) H 10/07/16 06:15 Serum Total Protein 5.9 g/dL (6.0-8.3) L 10/09/16 05:31 Albumin 2.9 g/dL (3.5-5.0) L 10/09/16 05:31 Albumin/Globulin Ratio 1.0 (1.1-2.2) L 10/09/16 05:31 Ur Squamous Epith Cells Moderate per lpf (None-Few) H 10/06/16 12:08 - Clinical Findings Intake & Output: Intake & Output 10/09/16 10/10/16 10/10/16 23:59 07:59 15:59 Intake Total 240 / 240 137 / 137 542 / 542 Output Total 1000 / 1000 450 / 450 1000 / 1000 Balance -760 / -760 -313 / -313 -458 / -458 Weight 93.304 kg - Attending Attestation I examined this patient and my medical decision-making was reviewed with the SHREDDED FILLER CIGAR MAKER MACHINE/PA/Advanced Practice Nurse/Resident Physician. I agree with the documented findings, disposition and treatment plan as described except to the extent set forth below. Patient seen and examined. Labs, radiology, chart personally reviewed. 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 Reviewing his case from previous visits from outpatient in 2012 he was diagnosed with severe COPD and no follow-up after that, there is cancellation from patient. The only complaint patient has is dyspnea and he denies any wheezing, productive cough which is typically and indication of COPD exacerbation and there are more evidence of fluid overload clinically with at least 2+ pedal edema and chest x- ray with evidence of cephalization and BNP is elevated and this is pointing most likely exacerbation is heart failure rather than COPD exacerbation. We will add Symbicort as well as Spiriva and stop Pulmicort and Atrovent with BiPAP on and off. Discussed with the family at the bedside and she will need outpatient follow-up. Discussed with primary team. Patient will need outpatient follow up after discharge home. Cardiovascular: I believe patient will benefit from more diuresis and extra dose of Lasix has been given. If patient needs cardioversion, temporary intubation is reasonable to perform the procedure for his atrial fibrillation. GI: Nutrition per dietary and GI prophylaxis per routine Heme: DVT prophylaxis per routine ID: There is no indication this is infectious source. Renal; urine out put and renal funtion reviewed. Diuresis and also replace electrolytes. Endorcine: blood glucose is monitored Lines: all lines checked and no evidence of infections Skin: skin care to prevent pressure ulcers per nursing routine care Thank you very much for consultation and allowing us to participate in the care and taking care of this very pleasant patient.
[2016-10-10 15:06] LABS: BUN/Creatinine Ratio 21 (6-26); Blood Urea Nitrogen 28 mg/dL (8-26); Calcium 8.4 mg/dL (8.6-10.8); Carbon Dioxide 35 mEq/L (19-29); Chloride 98 mEq/L (98-109); Glucose 98 mg/dL (70-99); Osmolality,Calculated 297 (280-300); Potassium 4.2 mEq/L (3.5-4.5); Sodium 141 mEq/L (136-145); eGFR For African Americans > 60 (> 60); eGFR For Non-African Americans 52 (> 60)
[2016-10-10] MEDS ORDERED: Furosemide 40 MG TABLET PO SCH (17:00)
[2016-10-10] MEDS ORDERED: *HR* Warfarin 2 MG TABLET PO ONE (18:00)
[2016-10-11] MEDS: Levalbuterol Neb 0.63 MG/3 ML IH SCH ×6 (00:37→20:07)
[2016-10-11] MEDS: Amiodarone Premix 360 MG/200 ML BAG IVC SCH ×2 (02:01→07:48)
[2016-10-11 03:51] LABS: Basophils % 0.2 %; Eosinophils # 0.2 K/mcL (0.0-0.6); Eosinophils % 2.2 %; Hematocrit 41.4 % (37.5-50.1); Hemoglobin 12.9 g/dL (12.9-16.9); Immature Granulocytes % 0.3 % (0-4); Immature Platelets 3.3 % (1.1-6.1); Lymphocytes % 10.2 %; Mean Corpuscular HGB Conc 31.2 g/dL (31.6-35.5); Mean Corpuscular Hemoglobin 32.7 pg (28.0-33.3); Mean Corpuscular Volume 104.8 fL (83.0-100.0); Mean Platelet Volume 9.8 fL (9.4-12.4); Monocytes # 0.9 K/mcL (0.0-1.3); Monocytes % 8.7 %; Neutrophils # 7.8 K/mcL (1.6-8.9); Platelet Count 109 K/mcL (140-400); Red Blood Count 3.95 M/mcL (4.19-5.50); Segmented Neutrophils % 78.4 %
[2016-10-11 03:53] LABS: INR 2.5; Prothrombin Time 28.2 Seconds (9.4-12.1)
[2016-10-11 04:04] LABS: BUN/Creatinine Ratio 21 (6-26); Blood Urea Nitrogen 26 mg/dL (8-26); Calcium 8.1 mg/dL (8.6-10.8); Carbon Dioxide 37 mEq/L (19-29); Chloride 97 mEq/L (98-109); Glucose 87 mg/dL (70-99); Magnesium 1.5 mg/dL (1.6-2.6); Osmolality,Calculated 296 (280-300); Phosphorous 2.4 mg/dL (2.3-4.7); Potassium 3.5 mEq/L (3.5-4.5); Sodium 141 mEq/L (136-145); eGFR For African Americans > 60 (> 60); eGFR For Non-African Americans 57 (> 60)
[2016-10-11] MEDS ORDERED: Magnesium Sulfate 2 GM in D5% in Water 100 ML IVPB PRN (04:28)
[2016-10-11] MEDS: Budesonide/Formoterol 160/4.5 MDI IH SCH ×2 (07:55→20:07)
[2016-10-11] MEDS: Pantoprazole 40 MG VIAL IVPB SCH (09:18)
--- NOTE | 2016-10-11 09:24 | Pulmonology Progress Note ---
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 Continue Zopenex, Symbicort and Spiriva. Discontinue BIPAP on and off. Patient saturating well on 2L NC. Cardiovascular: Afib RVR, AICD in place, blood pressures are stable 90s to 100s systolic. Echo from 09/23/16 LVEF 25% severe LV dysfunction, mildly dilated RV with moderate RV hypokinesis, severely dilated R atrium and severely dilated L atrium. Cardiology has cancelled cardioversion today and has postponed it for tomorrow. Cardiology has also discontinued Amiodarone ggt and started Amiodarone po. Patient is on Digoxin, Metoprolol XL. Fluid balance -2L for length of stay. GI/Nutrition/Electrolytes/Fluids: Electrolyte protocol ordered. Caution with calcium treatment since patient is on Digoxin. GI Prophylaxis: protonix. Renal: Evidence of GUILLAUME, improving. SCr 1.23, baseline SCr of 0.9. Good UOP. Feliciano in place. ID: Leukocytosis resolved, WBC 9.9 today down from 10.5 yesterday. Continue to monitor. Patient has remained afebrile overnight. Heme/Onc: Thrombocytopenia with platelets 109. DVT Prophylaxis: On coumadin, INR 2.3 Endocrine: Fasting Blood sugars stable 80s-90s, continue to monitor Lines: all lines checked and no evidence of infections hector peripheral Skin: skin care to prevent pressure ulcers per nursing routine care Code status: FULL CODE (2) COPD (chronic obstructive pulmonary disease) Current Visit: Yes Status: Acute (3) Atrial fibrillation with RVR Current Visit: Yes Status: Acute (4) Systolic CHF, acute on chronic Current Visit: Yes Status: Acute (5) Non-ischemic cardiomyopathy Current Visit: No Status: Acute (6) AICD (automatic implantable cardioverter defibrillator) at end of life Current Visit: No Status: Acute (7) Thrombocytopenia Current Visit: Yes Status: Acute (8) DVT prophylaxis Current Visit: Yes Status: Acute Subjective Principal diagnosis: a. fib Interval history: Patient did well through the night and had no overnight events. He did wear BIPAP for a total of 4 hours last night with less confusion this morning than yesterday. Patient is NPO and awaiting cardioversion today per Dr. Dent. Objective PUL Vital signs: Last Vital Signs Temp 98.0 F 10/11/16 08:03 Pulse 99 10/11/16 08:00 Resp 22 10/11/16 08:00 BP 96/69 10/11/16 08:00 Pulse Ox 98 10/11/16 08:00 General appearance: no acute distress (awake, alert, oriented x 3, pleasant affect) Eyes: nonicteric ENT: oropharynx dry Neck: supple, other (No carotid bruit) Auscultation: bilateral: diminished breath sounds (Very little air movment into bilateral bases) Cardiovascular: irregular rhythm (at a rate of 107) Gastrointestinal: normoactive bowel sounds, soft, non-tender, non-distended Integumentary: normal Extremities: no cyanosis, edema (1+ pitting edema bilateral feet to level of ankle, tracing pitting edema bilateral lower legs to level of knee) Musculoskeletal: no deformities Gait: normal posture normal mental status, non-focal exam mood appropriate, affect normal Results - Laboratory Findings CBC and BMP: 10/11/16 03:40 10/11/16 03:40 ABG ABG pH 7.46 pH Units (7.32-7.45) H 10/10/16 13:34 ABG pCO2 60 mmHg (35-45) H 10/10/16 13:34 ABG pO2 139 mmHg (85-104) H 10/10/16 13:34 ABG O2 Saturation 99 % (95-98) H 10/10/16 13:34 PT/INR, D-dimer PT 28.2 Seconds (9.4-12.1) H 10/11/16 03:40 Abnormal lab findings: Abnormal lab results RBC 3.95 M/mcL (4.19-5.50) L 10/11/16 03:40 MCV 104.8 fL (83.0-100.0) H 10/11/16 03:40 MCHC 31.2 g/dL (31.6-35.5) L 10/11/16 03:40 Plt Count 109 K/mcL (140-400) L 10/11/16 03:40 Nucleated RBCs/100 WBC 0.2 /100 WBC (0) H 10/07/16 06:15 PT 28.2 Seconds (9.4-12.1) H 10/11/16 03:40 APTT 40.1 Seconds (26.0-36.0) H 10/04/16 14:18 ABG pH 7.46 pH Units (7.32-7.45) H 10/10/16 13:34 ABG pCO2 60 mmHg (35-45) H 10/10/16 13:34 ABG pO2 139 mmHg (85-104) H 10/10/16 13:34 ABG HCO3 42.7 mEQ/L (21-27) H 10/10/16 13:34 ABG Total CO2 44.5 mEq/L (20-26) H 10/10/16 13:34 ABG O2 Saturation 99 % (95-98) H 10/10/16 13:34 ABG Base Excess 15.6 mEq/L (-2.0 to 3.0) H 10/10/16 13:34 Chloride 97 mEq/L (98-109) L 10/11/16 03:40 Carbon Dioxide 37 mEq/L (19-29) H 10/11/16 03:40 Est GFR (Non-Af Amer) 57 (> 60) L 10/11/16 03:40 POC Glucose 154 (58-89) H 10/08/16 22:17 Calcium 8.1 mg/dL (8.6-10.8) L 10/11/16 03:40 Ionized Calcium 1.02 mmol/L (1.15-1.35) L 10/10/16 14:12 Magnesium 1.5 mg/dL (1.6-2.6) L 10/11/16 03:40 B-Natriuretic Peptide 1801 pg/mL (0-100) H 10/10/16 14:12 Serum Total Protein 5.9 g/dL (6.0-8.3) L 10/09/16 05:31 Albumin 2.9 g/dL (3.5-5.0) L 10/09/16 05:31 Albumin/Globulin Ratio 1.0 (1.1-2.2) L 10/09/16 05:31 Ur Squamous Epith Cells Moderate per lpf (None-Few) H 10/06/16 12:08 - Clinical Findings Intake & Output: Intake & Output 10/10/16 10/11/16 10/11/16 23:59 07:59 15:59 Intake Total 1200 / 1200 704 / 704 Output Total 500 / 500 500 / 500 200 / 200 Balance 700 / 700 204 / 204 -200 / -200 Weight 93.2 kg - VTE Documentation of Mechanical Device: Graduated compression elastic hosiery Consult Discharge Plan - Plan Referrals: Jere Kay, SECRETARY BOOK KEEPER [Primary Care Provider] - 10/13/16 1:00 pm <Bon Song - Last Filed: 10/11/16 14:40> Date of Encounter: 10/11/16 Objective PUL Vital signs: Last Vital Signs Temp 97.6 F 10/11/16 11:11 Pulse 107 10/11/16 13:00 Resp 22 10/11/16 13:00 BP 111/84 10/11/16 13:00 Pulse Ox 94 10/11/16 13:00 Results - Laboratory Findings CBC and BMP: 10/11/16 03:40 10/11/16 03:40 ABG ABG pH 7.46 pH Units (7.32-7.45) H 10/10/16 13:34 ABG pCO2 60 mmHg (35-45) H 10/10/16 13:34 ABG pO2 139 mmHg (85-104) H 10/10/16 13:34 ABG O2 Saturation 99 % (95-98) H 10/10/16 13:34 PT/INR, D-dimer PT 28.2 Seconds (9.4-12.1) H 10/11/16 03:40 Abnormal lab findings: Abnormal lab results RBC 3.95 M/mcL (4.19-5.50) L 10/11/16 03:40 MCV 104.8 fL (83.0-100.0) H 10/11/16 03:40 MCHC 31.2 g/dL (31.6-35.5) L 10/11/16 03:40 Plt Count 109 K/mcL (140-400) L 10/11/16 03:40 Nucleated RBCs/100 WBC 0.2 /100 WBC (0) H 10/07/16 06:15 PT 28.2 Seconds (9.4-12.1) H 10/11/16 03:40 APTT 40.1 Seconds (26.0-36.0) H 10/04/16 14:18 ABG pH 7.46 pH Units (7.32-7.45) H 10/10/16 13:34 ABG pCO2 60 mmHg (35-45) H 10/10/16 13:34 ABG pO2 139 mmHg (85-104) H 10/10/16 13:34 ABG HCO3 42.7 mEQ/L (21-27) H 10/10/16 13:34 ABG Total CO2 44.5 mEq/L (20-26) H 10/10/16 13:34 ABG O2 Saturation 99 % (95-98) H 10/10/16 13:34 ABG Base Excess 15.6 mEq/L (-2.0 to 3.0) H 10/10/16 13:34 Chloride 97 mEq/L (98-109) L 10/11/16 03:40 Carbon Dioxide 37 mEq/L (19-29) H 10/11/16 03:40 Est GFR (Non-Af Amer) 57 (> 60) L 10/11/16 03:40 POC Glucose 154 (58-89) H 10/08/16 22:17 Calcium 8.1 mg/dL (8.6-10.8) L 10/11/16 03:40 Ionized Calcium 1.02 mmol/L (1.15-1.35) L 10/10/16 14:12 Magnesium 1.5 mg/dL (1.6-2.6) L 10/11/16 03:40 B-Natriuretic Peptide 1801 pg/mL (0-100) H 10/10/16 14:12 Serum Total Protein 5.9 g/dL (6.0-8.3) L 10/09/16 05:31 Albumin 2.9 g/dL (3.5-5.0) L 10/09/16 05:31 Albumin/Globulin Ratio 1.0 (1.1-2.2) L 10/09/16 05:31 Ur Squamous Epith Cells Moderate per lpf (None-Few) H 10/06/16 12:08 - Clinical Findings Intake & Output: Intake & Output 10/10/16 10/11/16 10/11/16 23:59 07:59 15:59 Intake Total 1200 / 1200 704 / 704 100 / 100 Output Total 500 / 500 500 / 500 400 / 400 Balance 700 / 700 204 / 204 -300 / -300 Weight 93.2 kg 93.1 kg - Attending Attestation I examined this patient and my medical decision-making was reviewed with the MANAGER SMALL BUSINESS/PA/Advanced Practice Nurse/Resident Physician. I agree with the documented findings, disposition and treatment plan as described except to the extent set forth below. All pertinent laboratory data andimages reviewed. Case was discussed in multidisciplinary Rounds. Neuro: Alert and oriented. No acute issues. Cardiovascular: Hemodynamically stable with persistent atrial fibrillation. Suspect the patient's respiratory symptoms are primarily cardiac in nature. Patient is not converted from atrial fibrillation but is likely to do well on her rate control strategy. Plan to defer cardioversion decision to cardiology service. At this point expect the patient will benefit most from further diuresis. Continue Lasix. Pulmonary: History of COPD very minimal evidence of ongoing exacerbation. Slight expiratory wheezes on exam but more prominent finding is fine rales. In the absence of persistent hypoxemia or hypercapnia, futility of continued BiPAP is limited. Plan to discontinue scheduled BiPAP and changed as needed application. Also reduce pressure to 10/6. Nephrology: Robust urine output in response to diuresis. Serum creatinine continues to decrease despite diuresis and getting the patient continues benefit. No nephrology reason to hold diuresis at this point. Continue diuresis GI: Tolerating oral intake well. No acute issues. ID: No acute issues HO: No acute issues. Endocrine: No acute issues. Dispo: Appropriate for transfer from ICU.
[2016-10-11] MEDS: Metoprolol XL (24 HR) Succ 25 MG TAB.ER.24H PO SCH (09:40)
[2016-10-11] MEDS: *HR* Amiodarone 200 MG TABLET PO SCH ×2 (09:40→20:31)
[2016-10-11] MEDS: Aspirin 81 MG TAB.CHEW PO SCH (09:40)
[2016-10-11] MEDS: *HR* Digoxin 0.125 MG TABLET PO SCH (09:40)
[2016-10-11] MEDS ORDERED: Tiotropium 18 MCG inhalation IH SCH (10:00)
--- NOTE | 2016-10-11 12:57 | Cardiology Progress Note ---
Date of Encounter: 10/11/16 Time of Encounter: 08:45 Assessment and Plan (1) Atrial fibrillation with RVR Current Visit: Yes Status: Acute Rate control better overnight. HR 90-107. Respiratory status improved with bi- pap overnight. Respiratory status may be driving heart rates. Appreciate pulmonology input. Discussed with Dr. Chow. We will discontinue IV amiodarone at this time. Continue oral amiodarone and digoxin. We will discuss possible use of ICD to attempt pace terminating afib tomorrow. He is higher risk for adverse event with sedation for DCCV with hypotension and recurrent respiratory distress. He would likely require anesthesia for procedure. DCCV cancelled for now. Continue rate control today. Continue anticoagulation with coumadin. INR is therapeutic. (2) AICD (automatic implantable cardioverter defibrillator) at end of life Current Visit: No Status: Acute Qualifiers: Encounter type: initial encounter Qualified Code(s): T82.198A - Other mechanical complication of other cardiac electronic device, initial encounter (3) CHF (congestive heart failure) Current Visit: Yes Status: Acute Systolic CHF with EF 25% on recent echo. Known non-ischemic cardiomyopathy diagnosed in 2007. Non occlusive disease seen on [facility] at that time. TTE 09/23/16- EF 25%. LV moderately to severely dilated. Mildly dilated RV with RV hypokenesis. Severely dilated bilateral atrium. Moderate mitral regurgitation. Severe tricuspid regurgitation. Mild pulmonary hypertension. Initially diuresed with IV lasix until euvolemic. Noted that BNP increasing. Cxr showed overall improvement in mild CHF. Will need maintenance lasix. Noted to have increasing BLE edema. Agree with starting oral lasix. Continue cardiac diet, Na / fluid restrictions Qualifiers: Congestive heart failure type: systolic Congestive heart failure chronicity : acute on chronic Qualified Code(s): I50.23 - Acute on chronic systolic ( congestive) heart failure (4) Elevated troponin Current Visit: Yes Status: Acute Mild flat troponin elevation. Secondary to demand ischemia in the setting of atrial fibrillation with RVR and respiratory distress. Discussion w patient/family: The assessment and plan as outlined above was discussed with the patient and/or family members who expressed understanding and agreement. All questions were answered. Thank you for involving us in the care of your patient. Please call with any questions. Subjective Principal diagnosis: a. fib Interval history: Patient is alert today and denies recurrent episode of respiratory distress. Discussed with his RN, he wore bipap overnight and seems to be doing better this morning. Objective Vital Signs, Last 4 Hours Temp Pulse Resp BP Pulse Ox 10/11/16 12:01 24 95 10/11/16 12:00 90 20 120/77 96 10/11/16 11:19 96 10/11/16 11:11 97.6 F 10/11/16 11:00 105 22 120/80 95 10/11/16 10:00 102 22 111/45 95 10/11/16 09:00 96 24 93/70 95 General: Conversant, No Apparent Distress HEENT: Atraumatic, Normocephaly, Mucus Membranes Moist Neck: No JVD, Normal carotid pulses Cardiac: Other (Irregularly irregular) Lungs: Normal Breath Sounds, No Wheeze, Rales, Rhonchi, Other (diminished bases. ) Neuro: Alert and responsive, No focal deficits noted Abdomen: Soft, Non-Tender Skin: No rashes noted on visualized skin Musculoskeletal: No Chest Wall Tenderness Extremities: No Clubbing, No Cyanosis, Normal Pulses, Other (2+ edema up to knees. ) Results 10/11/16 03:40 10/11/16 03:40 Lab Results 10/10/16 10/10/16 10/11/16 14:12 14:12 03:40 WBC Hgb Hct Plt Count INR 2.5 Sodium 141 Potassium 4.2 Chloride 98 Carbon Dioxide 35 H BUN 28 H Creatinine 1.34 H Glucose 98 Calcium 8.4 L Magnesium B-Natriuretic Peptide 1801 H 10/11/16 10/11/16 03:40 03:40 WBC 9.9 Hgb 12.9 D Hct 41.4 Plt Count 109 L INR Sodium 141 Potassium 3.5 Chloride 97 L Carbon Dioxide 37 H BUN 26 Creatinine 1.23 Glucose 87 Calcium 8.1 L Magnesium 1.5 L B-Natriuretic Peptide - Imaging and Cardiology Echo: report reviewed - VTE Documentation of Mechanical Device: Graduated compression elastic hosiery Consult Discharge Plan - Plan Referrals: Jere Kay, DEEPA [Primary Care Provider] - 10/13/16 1:00 pm
[2016-10-11] MEDS ORDERED: Levalbuterol 1 PUFF INHALER IH PRN (13:23)
[2016-10-11] MEDS ORDERED: Acetaminophen 325 MG TABLET PO PRN (13:23)
[2016-10-11] MEDS ORDERED: traMADol 50 MG TABLET PO PRN (13:23)
[2016-10-11] MEDS ORDERED: Naloxone 0.4 MG/ML INJ IVP PRN (13:23)
[2016-10-11] MEDS ORDERED: *HR* Metoprolol 5 MG/5 ML VIAL IVP PRN (13:23)
[2016-10-11] MEDS ORDERED: Warfarin perPT PO PRN (13:23)
--- NOTE | 2016-10-11 14:53 | Electrocardiograph Report ---
[place] [address] Test Date: 2016-10-08 Pat Name: Rosendo Bartlett Department: 109 Room: [facility] Gender: M Entry Level Drafter: SONYA : 1940 Requested By: Conner Mabry Order Number: [id number] Reading MD: Hardik Sheppard MD Measurements Intervals [place] Rate: 143 P: [place]: 0 QRS: 13 QRSD: 107 T: 98 QT: 312 QTc: 395 Interpretive Statements ATRIAL FIBRILLATION WITH RAPID VENTRICULAR RESPONSE Electronically Signed On 10-11-2016 14:52:23 EDT by Hardik Sheppard MD
--- NOTE | 2016-10-11 15:04 | Electrocardiograph Report ---
[place] [address] Test Date: 2016-10-08 Pat Name: Rosendo Bartlett Department: 110 Room: [facility] Gender: M Inspector Integrated Circuits: [id number] : 1940 Requested By: Lisbeth Dias Order Number: [id number] Reading MD: Hardik Sheppard MD Measurements Intervals [place] Rate: 163 P: [place]: 0 QRS: -16 QRSD: 110 T: 132 QT: 287 QTc: 377 Interpretive Statements ATRIAL FIBRILLATION WITH RAPID VENTRICULAR RESPONSE Poor R wave progression Electronically Signed On 10-11-2016 15:02:52 EDT by Hardik Sheppard MD
--- NOTE | 2016-10-11 16:36 | Electrocardiograph Report ---
[place] [address] Test Date: 2016-10-09 Pat Name: Rosendo Bartlett Department: 109 Room: [facility] Gender: M Electric Motor Analyst: SONYA : 1940 Requested By: Lisbeth Dias Order Number: [id number] Reading MD: Hardik Sheppard MD Measurements Intervals [place] Rate: 104 P: [place]: 0 QRS: -1 QRSD: 108 T: 120 QT: 374 QTc: 435 Interpretive Statements ATRIAL FIBRILLATION WITH RAPID VENTRICULAR RESPONSE Poor R wave progression Electronically Signed On 10-11-2016 16:34:54 EDT by Hardik Sheppard MD
--- NOTE | 2016-10-11 16:39 | Electrocardiograph Report ---
[address] [place], [place] [address] Test Date: 2016-10-09 Pat Name: Rosendo Bartlett Department: 109 Room: [facility] Gender: M Regulatory Compliance Coordinator: SONYA : 1940 Requested By: Lisbeth Dias Order Number: [id number] Reading MD: Hardik Sheppard MD Measurements Intervals [place] Rate: 86 P: [place]: 0 QRS: 13 QRSD: 108 T: 201 QT: 393 QTc: 437 Interpretive Statements ATRIAL FIBRILLATION WITH ABERRANT CONDUCTION OR PVC LOW QRS VOLTAGE IN EXTREMITY LEADS LATERAL ISCHEMIA Poor R wave progression Electronically Signed On 10-11-2016 16:38:05 EDT by Hardik Sheppard MD
[2016-10-11] MEDS ORDERED: *HR* Warfarin 3 MG TABLET PO ONE ×2 (18:00)
[2016-10-12] MEDS: Levalbuterol Neb 0.63 MG/3 ML IH SCH ×6 (01:11→21:11)
[2016-10-12 06:15] LABS: Basophils % 0.4 %; Eosinophils # 0.3 K/mcL (0.0-0.6); Eosinophils % 3.7 %; Hematocrit 41.4 % (37.5-50.1); Hemoglobin 12.9 g/dL (12.9-16.9); Immature Granulocytes % 0.3 % (0-4); Lymphocytes # 0.7 K/mcL (0.6-4.6); Lymphocytes % 9.8 %; Mean Corpuscular HGB Conc 31.2 g/dL (31.6-35.5); Mean Corpuscular Hemoglobin 32.4 pg (28.0-33.3); Monocytes # 0.7 K/mcL (0.0-1.3); Monocytes % 9.4 %; Neutrophils # 5.6 K/mcL (1.6-8.9); Platelet Count 112 K/mcL (140-400); Red Blood Count 3.98 M/mcL (4.19-5.50); Red Cell Distribution Width 13.9 % (11.5-14.5); Segmented Neutrophils % 76.4 %
[2016-10-12 06:19] LABS: INR 2.4; Prothrombin Time 26.8 Seconds (9.4-12.1)
[2016-10-12 06:28] LABS: Alanine Aminotransferase 20 Units/L (0-55); Albumin 2.5 g/dL (3.5-5.0); Albumin/Globulin Ratio 0.9 (1.1-2.2); Alkaline Phosphatase 69 Units/L (38-126); Aspartate Amino Transferase 21 Units/L (5-34); BUN/Creatinine Ratio 22 (6-26); Bilirubin,Total 1.7 mg/dL (0.2-1.2); Blood Urea Nitrogen 21 mg/dL (8-26); Calcium 8.3 mg/dL (8.6-10.8); Carbon Dioxide 39 mEq/L (19-29); Chloride 99 mEq/L (98-109); Globulin 2.9 g/dL (2.4-3.5); Glucose 78 mg/dL (70-99); Osmolality,Calculated 294 (280-300); Potassium 4.4 mEq/L (3.5-4.5); Sodium 141 mEq/L (136-145); Total Protein 5.4 g/dL (6.0-8.3); eGFR For African Americans > 60 (> 60); eGFR For Non-African Americans > 60 (> 60)
[2016-10-12] MEDS: Budesonide/Formoterol 160/4.5 MDI IH SCH ×2 (07:29→21:10)
[2016-10-12] MEDS: Tiotropium 18 MCG inhalation IH SCH (07:30)
--- NOTE | 2016-10-12 08:36 | Internal Med Progress Note ---
<Tino Nash - Last Filed: 10/12/16 16:33> Date of Encounter: 10/12/16 Time of Encounter: 08:36 - Assessment and plan (1) Atrial fibrillation with RVR Current Visit: Yes Status: Acute Assessment and plan: His heart rate has been between 100 to 110 bpm this morning, patient has history of severe COPD and that could be driving his tachycardia, BiPAP use has helped him to control his heart rate, cardiology is on board, continue oral amiodarone, digoxin and metoprolol. DC cardioversion has been canceled for today, patient will have a talk with the buffing turner and counter later today, continue anticoagulation with Coumadin, INR has been therapeutic, will follow cardiology's recommendation. (2) Acute on chronic systolic CHF (congestive heart failure) Current Visit: Yes Status: Acute Assessment and plan: Recent echo showed ejection fraction of 25%, patient has a known history of nonischemic cardiomyopathy which was diagnosed in 2007, patient has been diuresing well after we placed a Feliciano catheter, will continue IV Lasix for now , continue strict ins and outs, check daily weight, fluid restriction diet, cardiology has been following. (3) Acute kidney injury Current Visit: Yes Status: Acute Assessment and plan: Patient's renal function has been improving after we placed a Feliciano catheter, patient also might have underlying cardiorenal syndrome from his acute on chronic systolic CHF, patient has been diuresing well, IV Lasix also has been helping to improve his renal function, continue to avoid nephrotoxic agents, recheck renal function in the morning. (4) BPH (benign prostatic hyperplasia) Current Visit: Yes Status: Acute Assessment and plan: Continue Feliciano catheter, follow-up with urologist as outpatient. Qualifiers: Qualified Code(s): N40.0 - Benign prostatic hyperplasia without lower urinary tract symptoms (5) Severe chronic obstructive pulmonary disease Current Visit: Yes Status: Acute Assessment and plan: Currently under control, use BiPAP when necessary, will continue Symbicort, DuoNeb [id number] and oxygen support. (6) DVT prophylaxis Current Visit: Yes Status: Acute Assessment and plan: Coumadin. - Subjective Interval history: Patient seen and examined. Patient states that his breathing is better than yesterday, however his heart rate has been 100 to 110s this morning, no active chest pain at this time. - Constitutional Vitals: Temp Pulse Resp BP Pulse Ox 98.1 F 97 18 104/78 99 10/12/16 06:29 10/12/16 06:29 10/12/16 07:30 10/12/16 06:29 10/12/16 07:30 General appearance: Present: cooperative, A&O X 3, no acute distress, answers questions appropriately - Head Head exam: Present: atraumatic, normocephalic - Eye Eye exam: Present: PERRL, conjuntiva pink, sclera anicteric Pupils: Present: PERRL - Neck Neck exam general surgery: Present: supple, trachea midline. Absent: lymphadenopathy - Respiratory Respiratory exam: Present: decreased breath sounds (Diffusedly bilateral). Absent: accessory muscle use, rhonchi, wheezes - Cardiovascular Cardiovascular exam: Present: irregular rhythm, +S1, +S2, tachycardia. Absent: diastolic murmur, gallop, rubs, systolic murmur - GI/Abdominal GI/Abdominal exam: Present: normal bowel sounds, soft, no peritoneal signs. Absent: distended, tenderness - Extremities Exam Extremities exam: Present: pedal edema (1+ pitting bilateral ), warm, radial pulses palpable and symetrical. Absent: calf tenderness, cyanotic - Neurological Exam Neurological exam: Present: CN II-XII intact, oriented X3, no focal deficits. Absent: pronater drift, facial droop, speech deficit - Skin Skin exam: Present: dry, intact Internal Medicine: Result - Labs CBC & Chem 7: 10/12/16 04:44 10/12/16 04:44 Labs: Short CBC 10/12/16 Range/Units 04:44 WBC 7.3 (4.3-11.1) K/mcL Hgb 12.9 (12.9-16.9) g/dL Hct 41.4 (37.5-50.1) % Plt Count 112 L (140-400) K/mcL Neutrophils # 5.6 (1.6-8.9) K/mcL BMP 10/12/16 04:44 Sodium 141 Potassium 4.4 Chloride 99 Carbon Dioxide 39 H BUN 21 Creatinine 0.94 Glucose 78 Calcium 8.3 L Liver Function 10/12/16 Range/Units 04:44 Total Bilirubin 1.7 H D (0.2-1.2) mg/dL AST 21 (5-34) Units/L ALT 20 (0-55) Units/L Alkaline Phosphatase 69 (38-126) Units/L Albumin 2.5 L (3.5-5.0) g/dL - ABG Interpretation ABG results: ABG ABG pH 7.46 pH Units (7.32-7.45) H 10/10/16 13:34 ABG pCO2 60 mmHg (35-45) H 10/10/16 13:34 ABG pO2 139 mmHg (85-104) H 10/10/16 13:34 ABG O2 Saturation 99 % (95-98) H 10/10/16 13:34 PT/INR, D-dimer PT 26.8 Seconds (9.4-12.1) H 10/12/16 04:44 - VTE Documentation of Mechanical Device: Graduated compression elastic hosiery Consult Discharge Plan - Plan Referrals: Jere Kay, SECONDARY SPANISH TEACHER [Primary Care Provider] - 10/13/16 1:00 pm <Fredrick Richardson P - Last Filed: 10/12/16 16:58> Date of Encounter: 10/12/16 - Constitutional Vitals: Temp Pulse Resp BP Pulse Ox 98.4 F 93 16 128/70 93 10/12/16 16:31 10/12/16 16:31 10/12/16 16:31 10/12/16 16:31 10/12/16 16:31 Internal Medicine: Result - Labs CBC & Chem 7: 10/12/16 04:44 10/12/16 04:44 Labs: Short CBC 10/12/16 Range/Units 04:44 WBC 7.3 (4.3-11.1) K/mcL Hgb 12.9 (12.9-16.9) g/dL Hct 41.4 (37.5-50.1) % Plt Count 112 L (140-400) K/mcL Neutrophils # 5.6 (1.6-8.9) K/mcL BMP 10/12/16 04:44 Sodium 141 Potassium 4.4 Chloride 99 Carbon Dioxide 39 H BUN 21 Creatinine 0.94 Glucose 78 Calcium 8.3 L Liver Function 10/12/16 Range/Units 04:44 Total Bilirubin 1.7 H D (0.2-1.2) mg/dL AST 21 (5-34) Units/L ALT 20 (0-55) Units/L Alkaline Phosphatase 69 (38-126) Units/L Albumin 2.5 L (3.5-5.0) g/dL - ABG Interpretation ABG results: ABG ABG pH 7.46 pH Units (7.32-7.45) H 10/10/16 13:34 ABG pCO2 60 mmHg (35-45) H 10/10/16 13:34 ABG pO2 139 mmHg (85-104) H 10/10/16 13:34 ABG O2 Saturation 99 % (95-98) H 10/10/16 13:34 PT/INR, D-dimer PT 26.8 Seconds (9.4-12.1) H 10/12/16 04:44 - Attending Attestation I examined this patient and my medical decision-making was reviewed with the INSTALLER APPRENTICE/PA/Advanced Practice Nurse/Resident Physician. I agree with the documented findings, disposition and treatment plan as described except to the extent set forth below.
[2016-10-12] MEDS ORDERED: Furosemide 40 MG TABLET PO SCH (09:00)
[2016-10-12] MEDS: *HR* Amiodarone 200 MG TABLET PO SCH ×2 (09:26→20:09)
[2016-10-12] MEDS: Metoprolol XL (24 HR) Succ 25 MG TAB.ER.24H PO SCH (09:26)
[2016-10-12] MEDS: Aspirin 81 MG TAB.CHEW PO SCH (09:26)
[2016-10-12] MEDS: *HR* Digoxin 0.125 MG TABLET PO SCH (09:26)
[2016-10-12] MEDS: Furosemide 40 MG TABLET PO SCH (09:26)
[2016-10-12] MEDS ORDERED: *HR* FentaNYL (PF) 100 MCG/2 ML VIAL IVP PRN (13:24)
[2016-10-12] MEDS ORDERED: *HR* Midazolam HCl 5 MG/5 ML VIAL IVP PRN (13:25)
[2016-10-12] MEDS ORDERED: 0.9 % Sodium Chloride 500 ML IVC ONE (13:25)
--- NOTE | 2016-10-12 15:43 | Cardiology Progress Note ---
Date of Encounter: 10/12/16 Time of Encounter: 12:45 Assessment and Plan (1) Atrial fibrillation with RVR Current Visit: Yes Status: Acute Telemetry review shows avg HR 110 bpm. Respiratory status improved with bi-pap overnight. Respiratory status may be driving heart rates. Appreciate pulmonology input. Continue oral amiodarone, digoxin, metoprolol. DCCV cancelled for now. Will discuss further recommendations with electrophysiology. Continue rate control today. Continue anticoagulation with coumadin. INR is therapeutic. Anticoagulation clinic reports reviewed. He was therapeutic for the last month. Replace magnesium and continue to monitor. (2) AICD (automatic implantable cardioverter defibrillator) at end of life Current Visit: No Status: Acute Qualifiers: Encounter type: initial encounter Qualified Code(s): T82.198A - Other mechanical complication of other cardiac electronic device, initial encounter (3) CHF (congestive heart failure) Current Visit: Yes Status: Acute Systolic CHF with EF 25% on recent echo. Known non-ischemic cardiomyopathy diagnosed in 2007. Non occlusive disease seen on [facility] at that time. TTE 09/23/16- EF 25%. LV moderately to severely dilated. Mildly dilated RV with RV hypokenesis. Severely dilated bilateral atrium. Moderate mitral regurgitation. Severe tricuspid regurgitation. Mild pulmonary hypertension. Initially diuresed with IV lasix until euvolemic. Continue maintenance lasix. -2470ml for today. Continue cardiac diet, Na / fluid restrictions Qualifiers: Congestive heart failure type: systolic Congestive heart failure chronicity : acute on chronic Qualified Code(s): I50.23 - Acute on chronic systolic ( congestive) heart failure (4) Elevated troponin Current Visit: Yes Status: Acute Mild flat troponin elevation. Secondary to demand ischemia in the setting of atrial fibrillation with RVR and respiratory distress. Discussion w patient/family: The assessment and plan as outlined above was discussed with the patient and/or family members who expressed understanding and agreement. All questions were answered. Thank you for involving us in the care of your patient. Please call with any questions. Subjective Principal diagnosis: a. fib Interval history: Patient alert with no complaints. Son at bedside. HR 100-120's afib this morning. He is asymptomatic. No new events overnight. Reports he does better when wearing bi-pap at night. Objective Vital Signs, Last 4 Hours Temp Pulse Resp BP Pulse Ox 10/12/16 14:10 97.9 F 113 16 125/101 97 10/12/16 12:07 98.1 F 100 16 114/92 100 General: Conversant, No Apparent Distress HEENT: Atraumatic, Normocephaly, Mucus Membranes Moist Neck: No JVD, Normal carotid pulses Cardiac: Other (Irregularly iregular) Lungs: Normal Breath Sounds, No Wheeze, Rales, Rhonchi Neuro: Alert and responsive, No focal deficits noted Abdomen: Soft, Non-Tender Skin: No rashes noted on visualized skin Musculoskeletal: No Chest Wall Tenderness Extremities: No Clubbing, No Cyanosis, Normal Pulses, Other (Trace BLE edema. ) Results 10/12/16 04:44 10/12/16 04:44 Lab Results 10/12/16 10/12/16 10/12/16 04:44 04:44 04:44 WBC 7.3 Hgb 12.9 Hct 41.4 Plt Count 112 L INR 2.4 Sodium 141 Potassium 4.4 Chloride 99 Carbon Dioxide 39 H BUN 21 Creatinine 0.94 Glucose 78 Calcium 8.3 L Total Bilirubin 1.7 H D AST 21 ALT 20 Alkaline Phosphatase 69 - EKG Interpretation EKG results cardiology: other (24 hour telemetry review shows avg HR 101 afib.) - VTE Documentation of Mechanical Device: Graduated compression elastic hosiery Consult Discharge Plan - Plan Referrals: Jere Kay, DEEPA [Primary Care Provider] - 10/13/16 1:00 pm
[2016-10-12] MEDS ORDERED: Magnesium Sulfate 2 GM in D5% in Water 100 ML IVPB ONE (15:54)
[2016-10-12] MEDS ORDERED: *HR* Warfarin 2 MG TABLET PO ONE (18:00)
[2016-10-13] MEDS: Levalbuterol Neb 0.63 MG/3 ML IH SCH ×7 (00:15→23:41)
[2016-10-13 08:12] LABS: INR 2.3; Prothrombin Time 25.5 Seconds (9.4-12.1)
--- NOTE | 2016-10-13 08:47 | Internal Med Progress Note ---
<Tino Nash - Last Filed: 10/13/16 15:34> Date of Encounter: 10/13/16 Time of Encounter: 08:47 - Assessment and plan (1) Atrial fibrillation with RVR Current Visit: Yes Status: Acute Assessment and plan: His heart rate has been between 100 to 110 bpm this morning, patient has history of severe COPD and that could be driving his tachycardia, BiPAP use has helped him to control his heart rate, will test for BiPAP qualification tonight , cardiology is on board, continue oral amiodarone, digoxin and metoprolol succinate. DC cardioversion has been rescheduled for tomorrow with Dr. Dent, continue anticoagulation with Coumadin, INR has been therapeutic, will follow cardiology's recommendation. (2) Acute on chronic systolic CHF (congestive heart failure) Current Visit: Yes Status: Acute Assessment and plan: Recent echo showed ejection fraction of 25%, patient has a known history of nonischemic cardiomyopathy which was diagnosed in 2007, patient has been diuresing well after we placed a Feliciano catheter, will continue by mouth Lasix for now, continue strict ins and outs, check daily weight, fluid restriction diet, cardiology has been following. (3) Acute kidney injury Current Visit: Yes Status: Acute Assessment and plan: Resolved, patient's renal function has been improving after we placed a Feliciano catheter, patient also might have underlying cardiorenal syndrome from his acute on chronic systolic CHF, patient has been diuresing well, IV Lasix also has been helping to improve his renal function, continue to avoid nephrotoxic agents, recheck renal function in the morning. (4) BPH (benign prostatic hyperplasia) Current Visit: Yes Status: Acute Assessment and plan: Continue Feliciano catheter even after discharge per urology recommendation, follow- up with urologist as outpatient in a week for removal of the catheter. Qualifiers: Qualified Code(s): N40.0 - Benign prostatic hyperplasia without lower urinary tract symptoms (5) Severe chronic obstructive pulmonary disease Current Visit: Yes Status: Acute Assessment and plan: Currently under control, use BiPAP when necessary, will continue Symbicort, DuoNeb [id number] and oxygen support. (6) DVT prophylaxis Current Visit: Yes Status: Acute Assessment and plan: Coumadin. - Subjective Interval history: Patient seen and examined. Patient states that his breathing is better than yesterday, however his heart rate has been 100 to 110s this morning, no active chest pain at this time. - Constitutional Vitals: Temp Pulse Resp BP Pulse Ox 98.3 F 112 16 102/70 95 10/13/16 06:25 10/13/16 06:25 10/13/16 06:25 10/13/16 06:25 10/13/16 06:25 General appearance: Present: cooperative, A&O X 3, no acute distress, answers questions appropriately - Head Head exam: Present: atraumatic, normocephalic - Eye Eye exam: Present: PERRL, conjuntiva pink, sclera anicteric Pupils: Present: PERRL - Neck Neck exam general surgery: Present: supple, trachea midline. Absent: lymphadenopathy - Respiratory Respiratory exam: Present: rales (At base bilateral). Absent: accessory muscle use, rhonchi, wheezes - Cardiovascular Cardiovascular exam: Present: irregular rhythm, +S1, +S2, tachycardia. Absent: diastolic murmur, gallop, rubs, systolic murmur - GI/Abdominal GI/Abdominal exam: Present: normal bowel sounds, soft, no peritoneal signs. Absent: distended, firm, guarding, rebound, rigid, tenderness - Extremities Exam Extremities exam: Present: pedal edema (1+ pitting bilateral), warm, radial pulses palpable and symetrical. Absent: calf tenderness, cyanotic, tenderness - Neurological Exam Neurological exam: Present: CN II-XII intact, oriented X3, no focal deficits. Absent: pronater drift, facial droop, speech deficit - Skin Skin exam: Present: dry, intact Internal Medicine: Result - Labs CBC & Chem 7: 10/12/16 04:44 10/12/16 04:44 - ABG Interpretation ABG results: ABG ABG pH 7.46 pH Units (7.32-7.45) H 10/10/16 13:34 ABG pCO2 60 mmHg (35-45) H 10/10/16 13:34 ABG pO2 139 mmHg (85-104) H 10/10/16 13:34 ABG O2 Saturation 99 % (95-98) H 10/10/16 13:34 PT/INR, D-dimer PT 25.5 Seconds (9.4-12.1) H 10/13/16 07:50 - VTE Documentation of Mechanical Device: Graduated compression elastic hosiery Consult Discharge Plan - Plan Referrals: Jere Kay, GENERATOR OPERATOR [Primary Care Provider] - 10/25/16 1:00 pm <Fredrick Richardson - Last Filed: 10/13/16 18:47> Date of Encounter: 10/13/16 - Constitutional Vitals: Temp Pulse Resp BP Pulse Ox 98.4 F 62 16 114/103 98 10/13/16 15:58 10/13/16 15:58 10/13/16 16:44 10/13/16 15:58 10/13/16 16:44 Internal Medicine: Result - Labs CBC & Chem 7: 10/12/16 04:44 10/12/16 04:44 - ABG Interpretation ABG results: ABG ABG pH 7.46 pH Units (7.32-7.45) H 10/10/16 13:34 ABG pCO2 60 mmHg (35-45) H 10/10/16 13:34 ABG pO2 139 mmHg (85-104) H 10/10/16 13:34 ABG O2 Saturation 99 % (95-98) H 10/10/16 13:34 PT/INR, D-dimer PT 25.5 Seconds (9.4-12.1) H 10/13/16 07:50 - Attending Attestation I examined this patient and my medical decision-making was reviewed with the ACCOUNTS PAYABLE COORDINATOR/PA/Advanced Practice Nurse/Resident Physician. I agree with the documented findings, disposition and treatment plan as described except to the extent set forth below.
[2016-10-13] MEDS: Budesonide/Formoterol 160/4.5 MDI IH SCH ×2 (09:10→21:14)
[2016-10-13] MEDS: Tiotropium 18 MCG inhalation IH SCH (09:10)
[2016-10-13] MEDS: *HR* Digoxin 0.125 MG TABLET PO SCH (09:14)
[2016-10-13] MEDS: Furosemide 40 MG TABLET PO SCH (09:14)
[2016-10-13] MEDS: Metoprolol XL (24 HR) Succ 25 MG TAB.ER.24H PO SCH (09:15)
[2016-10-13] MEDS: Aspirin 81 MG TAB.CHEW PO SCH (09:15)
[2016-10-13] MEDS: *HR* Amiodarone 200 MG TABLET PO SCH ×2 (09:15→20:59)
--- NOTE | 2016-10-13 11:39 | Cardiology Progress Note ---
Date of Encounter: 10/13/16 Time of Encounter: 11:37 Assessment and Plan (1) Atrial fibrillation with RVR Current Visit: Yes Status: Acute Patient has persistent afib with difficult rate control. Overall respiratory status has improved. Telemetry review shows avg HR 111 bpm. No new events overnight. Continue oral amiodarone, digoxin, metoprolol. Unable to increase bb d/t low b/ p. DCCV now scheduled for with Dr. Tarik Dent in the lab engineer. Continue rate control today. Continue anticoagulation with coumadin. INR is therapeutic. Anticoagulation clinic reports reviewed. He was therapeutic for the last month. Magnesium replaced yesterday. Continue to monitor. (2) AICD (automatic implantable cardioverter defibrillator) at end of life Current Visit: No Status: Acute Qualifiers: Encounter type: initial encounter Qualified Code(s): T82.198A - Other mechanical complication of other cardiac electronic device, initial encounter (3) CHF (congestive heart failure) Current Visit: Yes Status: Acute Systolic CHF with EF 25% on recent echo. Known non-ischemic cardiomyopathy diagnosed in 2007. Non occlusive disease seen on [facility] at that time. TTE 09/23/16- EF 25%. LV moderately to severely dilated. Mildly dilated RV with RV hypokenesis. Severely dilated bilateral atrium. Moderate mitral regurgitation. Severe tricuspid regurgitation. Mild pulmonary hypertension. Initially diuresed with IV lasix until euvolemic. Continue maintenance lasix. -3417ml for 24 hours. Continue cardiac diet, Na / fluid restrictions Qualifiers: Congestive heart failure type: systolic Congestive heart failure chronicity : acute on chronic Qualified Code(s): I50.23 - Acute on chronic systolic ( congestive) heart failure (4) Elevated troponin Current Visit: Yes Status: Acute Mild flat troponin elevation. Secondary to demand ischemia in the setting of atrial fibrillation with RVR and respiratory distress. TTE 09/23/16- EF 25%. LV moderately to severely dilated. Mildly dilated RV with RV hypokenesis. Severely dilated bilateral atrium. Moderate mitral regurgitation. Severe tricuspid regurgitation. Mild pulmonary hypertension. No significant change in EF. No further testing at this time. Discussion w patient/family: The assessment and plan as outlined above was discussed with the patient and/or family members who expressed understanding and agreement. All questions were answered. Thank you for involving us in the care of your patient. Please call with any questions. Subjective Principal diagnosis: a. fib Interval history: Patient alert with no complaints. Son at bedside. HR 100-120's afib this morning after ambulating in [place]. He is asymptomatic. No new events overnight. Objective Vital Signs Temp Pulse Resp BP Pulse Ox 10/13/16 06:25 98.3 F 112 16 102/70 95 10/13/16 03:59 16 97 10/13/16 00:16 16 97 10/12/16 23:57 98.1 F 116 18 116/89 94 10/12/16 21:13 16 94 10/12/16 20:16 98.3 F 106 17 121/75 93 10/12/16 16:58 18 95 10/12/16 16:31 98.4 F 93 16 128/70 93 10/12/16 14:10 97.9 F 113 16 125/101 97 10/12/16 12:07 98.1 F 100 16 114/92 100 Intake and Output 10/12/16 10/13/16 10/13/16 23:59 07:59 15:59 Intake Total 0 / 0 0 / 0 Output Total 1000 / 1000 350 / 350 Balance -1000 / -1000 -350 / -350 Intake: Oral 0 / 0 0 / 0 Output: Catheter 1000 / 1000 350 / 350 Other: Weight 91.9 kg Patient Weight 10/13/16 23:59 Weight 91.9 kg Retroperitoneum Ultrasound 10/05/16 16:30 IMPRESSION: No hydronephrosis noted Large postvoid residual, however the patient had difficulty voiding D/ / Maldonado Pena MD / Maldonado Pena MD Interpreting Provider: Maldonado Pena MD Chest X-Ray 10/10/16 10:58 IMPRESSION: Overall improvement in appearance of mild CHF. No edema demonstrated at this time D/ / Roel Moore MD / Roel Moore MD Interpreting Provider: Roel Moore MD General: Conversant, No Apparent Distress HEENT: Atraumatic, Normocephaly, Mucus Membranes Moist Neck: No JVD, Normal carotid pulses Cardiac: Other (Irregularly irregualr) Lungs: Normal Breath Sounds, No Wheeze, Rales, Rhonchi Neuro: Alert and responsive, No focal deficits noted Abdomen: Soft, Non-Tender Skin: No rashes noted on visualized skin Musculoskeletal: No Chest Wall Tenderness Extremities: No Clubbing, No Cyanosis, Normal Pulses, Other (Trace edema in ankles) Results 10/12/16 04:44 10/12/16 04:44 Lab Results 10/13/16 10/13/16 07:50 07:50 INR 2.3 Magnesium 1.9 - EKG Interpretation EKG results cardiology: other - VTE Documentation of Mechanical Device: Graduated compression elastic hosiery Consult Discharge Plan - Plan Referrals: Jere Kay CNP [Primary Care Provider] - 10/25/16 1:00 pm
[2016-10-13] MEDS ORDERED: *HR* Warfarin 3 MG TABLET PO ONE (18:00)
[2016-10-14] MEDS: Levalbuterol Neb 0.63 MG/3 ML IH SCH ×6 (03:31→23:18)
[2016-10-14 05:53] LABS: BUN/Creatinine Ratio 20 (6-26); Blood Urea Nitrogen 19 mg/dL (8-26); Calcium 8.3 mg/dL (8.6-10.8); Carbon Dioxide 34 mEq/L (19-29); Chloride 101 mEq/L (98-109); Glucose 90 mg/dL (70-99); Osmolality,Calculated 294 (280-300); Sodium 141 mEq/L (136-145); eGFR For African Americans > 60 (> 60); eGFR For Non-African Americans > 60 (> 60)
[2016-10-14 05:58] LABS: INR 2.3; Prothrombin Time 25.2 Seconds (9.4-12.1)
[2016-10-14] MEDS: *HR* Amiodarone 200 MG TABLET PO SCH ×2 (07:54→21:25)
[2016-10-14] MEDS: Furosemide 40 MG TABLET PO SCH (07:54)
[2016-10-14] MEDS: Metoprolol XL (24 HR) Succ 25 MG TAB.ER.24H PO SCH (07:54)
[2016-10-14] MEDS: *HR* Digoxin 0.125 MG TABLET PO SCH (07:54)
[2016-10-14] MEDS: Aspirin 81 MG TAB.CHEW PO SCH (07:54)
[2016-10-14] MEDS: Budesonide/Formoterol 160/4.5 MDI IH SCH ×2 (08:02→20:23)
[2016-10-14] MEDS: Tiotropium 18 MCG inhalation IH SCH (08:04)
--- NOTE | 2016-10-14 09:23 | Pre-Sedation Evaluation ---
Pre-sedation evaluation - Pre-sedation checklist Date of procedure: 10/12/16 Procedure: Cardioversion Recent Vitals: Last Vital Signs Temp 97.8 F 10/14/16 07:39 Pulse 93 10/14/16 07:39 Resp 17 10/14/16 08:06 BP 122/99 10/14/16 07:39 Pulse Ox 97 10/14/16 08:06 H&P (including ROS) documented in medical record: Yes Previous reaction to sedatives/anesthetics: No Dietary Status: NPO after Midnight Airway Assessment: Patient can open mouth completely, TMJ function normal, Micrognathia (under-bite, receding chin) absent Dentition: No loose teeth or bridges Possible difficult airway: No ASA Classification *see protocol: CLASS III-Severe systemic disease Plan of Care: Pt appropriate candidate for procedure/moderate/conscious sedation , Risks/benefits of procedure/sedation discussed w/ patient/family
[2016-10-14] MEDS ORDERED: *HR* Midazolam HCl 5 MG/5 ML VIAL IVP ONE (09:50)
[2016-10-14] MEDS ORDERED: *HR* FentaNYL (PF) 100 MCG/2 ML VIAL ONE (09:50)
[2016-10-14] MEDS ORDERED: 0.9 % Sodium Chloride 1,000 ML ONE (09:50)
--- NOTE | 2016-10-14 12:04 | Invasive Diagnostic Lab ---
Cardioversion Name: Rosendo Bartlett Date of Study: 10/14/2016 : 1940 Ht: 170.0 cm / 66.9 in Medical Record#: [id number] Age: 76 Wt: 92.4 kg / 203.7 lb Gender: Male BSA: 2.04 Location: Fluoro Dose: 0 mGy BMI: 31.97 Operating Physician: Tarik Dent MD, FACC Referring MD: Procedures Performed: Procedure CARDIOVERSION, EXTERNAL Indications: Description Atrial arrhythmia Impressions: Recommendations: Procedure Description: Following informed consent , the patient was sedated. After adequate sedation was achieved, cardioversion in the AP approach was successful using 300 Joules of biphasic energy. Normal sinus rhythm was restored after 2 attempt(s). The patient was monitored for the standard 30 minutes post procedure. Attempt # 1 200 joules Attempt # 2 300 joules EP Study Data ABLATION Procedure Medications Time Medication Dose Unit Route Given By 09:45 AM Oxygen 2 L/min nasal cannula Steffany Bocanegra RN 09:55 AM Oxygen 4 L/min Oxy Mask Steffany Bocanegra RN 09:55 AM Versed 3 Mg Intravenous Steffany Bocanegra RN 09:55 AM Fentanyl 50 Mcg Intravenous Steffany Bocanegra RN 10:00 AM Versed 2 Mg Intravenous Steffany Bocanegra RN 10:00 AM Fentanyl 25 Mcg Intravenous Steffany Bocanegra RN Contrast: Isovue ml. Complications: No complications occurred during the procedure. Complication None Updated by Tarik Dent MD, FACC on 10/14/2016 11:59:48 AM electronically signed on 10/14/2016 12:00:30 PM with status of Final
--- NOTE | 2016-10-14 13:31 | Event Note ---
Date of Encounter: 10/14/16 Time of Encounter: 13:15 - Cardiology Event Note Per cardiology: Device check after cardioversion with normal function. Per discussion with Dr.John Dent, recommend amiodarone 200mg BID for 1 month, then decrease amiodarone to 200mg daily. Cardiology will sign off and will follow in outpatient setting. Follow up set.
--- NOTE | 2016-10-14 15:03 | Internal Med Progress Note ---
<Jason Rossi - Last Filed: 10/14/16 14:55> Date of Encounter: 10/14/16 Time of Encounter: 09:35 - Assessment and plan (1) Atrial fibrillation with RVR Current Visit: Yes Status: Acute Assessment and plan: Chronic history of atrial fibrillation on warfarin therapy for anticoagulation and rate control with Toprol-XL and amiodarone. Admitted for atrial fibrillation with rapid ventricular rate around 140-150. Patient underwent cardioversion today, has remained in normal sinus rhythm. Cardiology has since signed off Cardiology recommendations are 200 mg amiodarone twice a day Recommend follow-up with Dr. Dent shortly after discharge We will continue to monitor via cardiac telemetry Continue metoprolol succinate and tartrate as needed PT/OT consulted for recommendations for discharge planning and assistance in patient weakness Social work following first assistance and patient placement (2) Acute on chronic systolic CHF (congestive heart failure) Current Visit: Yes Status: Acute Assessment and plan: Recent echo showed ejection fraction of 25%, patient has a known history of nonischemic cardiomyopathy which was diagnosed in 2007. patient has been diuresing well after we placed a Feliciano catheter Continue by mouth Lasix for now Continue strict ins and outs Fluid restriction diet cardiology has been following (3) Acute kidney injury Current Visit: Yes Status: Acute Assessment and plan: Renal function back to baseline Continue to monitor with daily chemistry Avoid potential nephrotoxic agents (4) Severe chronic obstructive pulmonary disease Current Visit: Yes Status: Acute Assessment and plan: Currently under control, use BiPAP when necessary Continue Symbicort Xopenex every 4 hours when necessary Supplemental oxygen as needed, wean as tolerated (5) BPH (benign prostatic hyperplasia) Current Visit: Yes Status: Acute Assessment and plan: Continue Feliciano catheter even after discharge per urology recommendation, follow- up with urologist as outpatient in a week for removal of the catheter. Qualifiers: Qualified Code(s): N40.0 - Benign prostatic hyperplasia without lower urinary tract symptoms (6) DVT prophylaxis Current Visit: Yes Status: Acute Assessment and plan: Patient on warfarin at home, will continue dose per pharmacy - Subjective Interval history: Patient seen and examined after cardioversion performed in the catheter lab this morning. Patient somnolent from anesthesia, assess at that time. Had lengthy discussion with patients' sons regarding his continued care. They were concerned that he might undergo discharge following his cardioversion today. They feel that he was not safe for discharge, despite cardiology having signed off, due to what they feel him being adequately assessed for weakness and hypoxia. There were very adamant regarding this issue. This is discussed with Dr. Richardson, myself, Lakia (social service technician), and Emilie (pharmacist) present. The patient's family was repeatedly reassured that he would receive and had received prior evaluation of his clinical condition. Family was concerned that this evaluation had occurred prior to his cardioversion today and demanded that he be reassessed prior to consideration of discharge. The original assessment recommended the patient be placed in inpatient rehabilitation at discharge due to concerns of his weakness. Patient's son was strongly opposed to this idea of inpatient placement, he refused any suggestion that this were to occur and was trying to place the blame of future falls/incidents at home on the clinical staff present. At the conclusion to conversation, patients' sons agreed with continuing hospital care of their father and reevaluation was potential needs postdischarge. - Constitutional Vitals: Temp Pulse Resp BP Pulse Ox 97.8 F 93 17 122/99 97 10/14/16 07:39 10/14/16 07:39 10/14/16 11:49 10/14/16 07:39 10/14/16 11:49 General appearance: Present: cooperative, A&O X 3, no acute distress, answers questions appropriately Exam: General: Cooperative, pleasant, no acute distress, alert and oriented 3, answers questions appropriately HEENT: Normocephalic, atraumatic, neck supple, trachea midline, Conjunctiva pink , sclera anicteric Respiratory: No accessory muscle usage, clear to auscultation bilaterally, no wheezes/rhonchi/rales appreciated Cardiovascular: Regular rate and rhythm, S1 and S2 present, no murmurs/rubs/ gallops/clicks appreciated GI/abdominal: Nondistended, nontender, soft, normal bowel sounds, no peritoneal signs Extremities: No calf tenderness, noncyanotic, no pedal edema appreciated, warm, lower extremity pulses palpable and symmetrical Neurological: Alert and oriented 3, no facial droop, no focal deficits Skin: Dry, intact, normal color Internal Medicine: Result - Labs CBC & Chem 7: 10/12/16 04:44 10/14/16 05:32 Labs: BMP 10/14/16 05:32 Sodium 141 Potassium 4.0 Chloride 101 Carbon Dioxide 34 H BUN 19 Creatinine 0.97 Glucose 90 Calcium 8.3 L - ABG Interpretation ABG results: ABG ABG pH 7.46 pH Units (7.32-7.45) H 10/10/16 13:34 ABG pCO2 60 mmHg (35-45) H 10/10/16 13:34 ABG pO2 139 mmHg (85-104) H 10/10/16 13:34 ABG O2 Saturation 99 % (95-98) H 10/10/16 13:34 PT/INR, D-dimer PT 25.2 Seconds (9.4-12.1) H 10/14/16 05:32 - VTE Documentation of Mechanical Device: Graduated compression elastic hosiery Consult Discharge Plan - Plan Referrals: Jere Kay, DEEPA [Primary Care Provider] - 10/25/16 1:00 pm <Fredrick Richardson - Last Filed: 10/14/16 17:21> Date of Encounter: 10/14/16 - Constitutional Vitals: Temp Pulse Resp BP Pulse Ox 97.7 F 73 16 130/71 94 10/14/16 16:03 10/14/16 16:03 10/14/16 16:15 10/14/16 16:03 10/14/16 16:15 Internal Medicine: Result - Labs CBC & Chem 7: 10/12/16 04:44 10/14/16 05:32 Labs: BMP 10/14/16 05:32 Sodium 141 Potassium 4.0 Chloride 101 Carbon Dioxide 34 H BUN 19 Creatinine 0.97 Glucose 90 Calcium 8.3 L - ABG Interpretation ABG results: ABG ABG pH 7.46 pH Units (7.32-7.45) H 10/10/16 13:34 ABG pCO2 60 mmHg (35-45) H 10/10/16 13:34 ABG pO2 139 mmHg (85-104) H 10/10/16 13:34 ABG O2 Saturation 99 % (95-98) H 10/10/16 13:34 PT/INR, D-dimer PT 25.2 Seconds (9.4-12.1) H 10/14/16 05:32 - Attending Attestation I examined this patient and my medical decision-making was reviewed with the AIRPLANE ELECTRICAL REPAIRER/PA/Advanced Practice Nurse/Resident Physician. I agree with the documented findings, disposition and treatment plan as described except to the extent set forth below. Had a long discussion with the patient's family member. dietary worker/pharmacist present during the conversation. Patient will stay tonight and will reevaluate him tomorrow morning.
[2016-10-14] MEDS ORDERED: *HR* Warfarin 2 MG TABLET PO ONE (18:00)
[2016-10-15] MEDS: Levalbuterol Neb 0.63 MG/3 ML IH SCH ×5 (04:29→20:34)
[2016-10-15 06:29] LABS: Basophils % 0.5 %; Eosinophils # 0.3 K/mcL (0.0-0.6); Hematocrit 40.8 % (37.5-50.1); Hemoglobin 12.9 g/dL (12.9-16.9); Immature Granulocytes % 0.5 % (0-4); Lymphocytes # 1.1 K/mcL (0.6-4.6); Lymphocytes % 14.3 %; Mean Corpuscular HGB Conc 31.6 g/dL (31.6-35.5); Mean Corpuscular Hemoglobin 32.3 pg (28.0-33.3); Mean Corpuscular Volume 102.3 fL (83.0-100.0); Monocytes # 0.8 K/mcL (0.0-1.3); Monocytes % 10.4 %; Neutrophils # 5.3 K/mcL (1.6-8.9); Platelet Count 130 K/mcL (140-400); Red Blood Count 3.99 M/mcL (4.19-5.50); Red Cell Distribution Width 13.8 % (11.5-14.5); Segmented Neutrophils % 70.3 %
[2016-10-15 06:37] LABS: INR 2.4; Prothrombin Time 26.1 Seconds (9.4-12.1)
[2016-10-15 06:42] LABS: BUN/Creatinine Ratio 16 (6-26); Blood Urea Nitrogen 16 mg/dL (8-26); Calcium 8.3 mg/dL (8.6-10.8); Carbon Dioxide 29 mEq/L (19-29); Chloride 101 mEq/L (98-109); Glucose 88 mg/dL (70-99); Osmolality,Calculated 287 (280-300); Sodium 138 mEq/L (136-145); eGFR For African Americans > 60 (> 60); eGFR For Non-African Americans > 60 (> 60)
[2016-10-15 06:43] LABS: Potassium 4.3 mEq/L (3.5-4.5)
--- NOTE | 2016-10-15 07:35 | Internal Med Progress Note ---
<Jason Rossi - Last Filed: 10/15/16 12:19> Date of Encounter: 10/15/16 Time of Encounter: 06:40 - Assessment and plan (1) Atrial fibrillation with RVR Current Visit: Yes Status: Acute Assessment and plan: Chronic history of atrial fibrillation on warfarin therapy for anticoagulation and rate control with Toprol-XL and amiodarone. Admitted for atrial fibrillation with rapid ventricular rate around 140-150. Patient underwent cardioversion today, has remained in normal sinus rhythm. Cardiology has since signed off Cardiology recommendations are 200 mg amiodarone twice a day Recommend follow-up with Dr. Dent shortly after discharge We will continue to monitor via cardiac telemetry Continue metoprolol succinate and tartrate as needed PT/OT consulted for recommendations for discharge planning and assistance in patient weakness Social work following first assistance and patient placement (2) Acute on chronic systolic CHF (congestive heart failure) Current Visit: Yes Status: Acute Assessment and plan: Recent echo showed ejection fraction of 25%, patient has a known history of nonischemic cardiomyopathy which was diagnosed in 2007. patient has been diuresing well after we placed a Feliciano catheter Continue by mouth Lasix for now Continue strict ins and outs Fluid restriction diet Patient has need for bipap. Cpap has been considered and ruled out. (3) Acute kidney injury Current Visit: Yes Status: Acute Assessment and plan: Renal function back to baseline Continue to monitor with daily chemistry Avoid potential nephrotoxic agents (4) Severe chronic obstructive pulmonary disease Current Visit: Yes Status: Acute Assessment and plan: Currently under control, use BiPAP when necessary Continue Symbicort Xopenex every 4 hours when necessary Supplemental oxygen as needed, wean as tolerated (5) BPH (benign prostatic hyperplasia) Current Visit: Yes Status: Acute Assessment and plan: Continue Feliciano catheter even after discharge per urology recommendation, follow- up with urologist as outpatient in a week for removal of the catheter. Qualifiers: Prostatic enlargement morphology: unspecified morphology Lower urinary tract symptom presence: presence of symptoms unspecified Qualified Code(s): N40.0 - Benign prostatic hyperplasia without lower urinary tract symptoms (6) DVT prophylaxis Current Visit: Yes Status: Acute Assessment and plan: Patient on warfarin at home, will continue dose per pharmacy - Subjective Interval history: Patient seen and examined at bedside today. He is alert, pleasant, in no acute distress. He reports that he is doing well and has not had any additional complaints of palpitations since his cardioversion yesterday. He states that his shortness of breath and weakness are both improving, but not back to baseline. He denies other concerns/complaints this time, including: Nausea/ vomiting, abdominal pain, headache, fever/chills. - Constitutional Vitals: Temp Pulse Resp BP Pulse Ox 98.7 F 77 15 130/82 95 10/15/16 04:51 10/15/16 04:51 10/15/16 06:03 10/15/16 04:51 10/15/16 06:03 General appearance: Present: cooperative, A&O X 3, pleasant, no acute distress, answers questions appropriately Exam: General: Cooperative, pleasant, no acute distress, alert and oriented 3, answers questions appropriately HEENT: Normocephalic, atraumatic, neck supple, trachea midline, Conjunctiva pink , sclera anicteric Respiratory: No accessory muscle usage, clear to auscultation bilaterally, slight bibasilar rales appreciated Cardiovascular: Regular rate and rhythm, S1 and S2 present, no murmurs/rubs/ gallops/clicks appreciated GI/abdominal: Nondistended, nontender, soft, normal bowel sounds, no peritoneal signs Extremities: No calf tenderness, noncyanotic, no pedal edema appreciated, warm, lower extremity pulses palpable and symmetrical Neurological: Alert and oriented 3, no facial droop, no focal deficits Skin: Dry, intact, normal color Internal Medicine: Result - Labs CBC & Chem 7: 10/15/16 06:03 10/15/16 06:03 Labs: Short CBC 10/15/16 Range/Units 06:03 WBC 7.5 (4.3-11.1) K/mcL Hgb 12.9 (12.9-16.9) g/dL Hct 40.8 (37.5-50.1) % Plt Count 130 L (140-400) K/mcL Neutrophils # 5.3 (1.6-8.9) K/mcL BMP 10/15/16 06:03 Sodium 138 Potassium 4.3 Chloride 101 Carbon Dioxide 29 BUN 16 Creatinine 1.01 Glucose 88 Calcium 8.3 L - ABG Interpretation ABG results: ABG ABG pH 7.46 pH Units (7.32-7.45) H 10/10/16 13:34 ABG pCO2 60 mmHg (35-45) H 10/10/16 13:34 ABG pO2 139 mmHg (85-104) H 10/10/16 13:34 ABG O2 Saturation 99 % (95-98) H 10/10/16 13:34 PT/INR, D-dimer PT 26.1 Seconds (9.4-12.1) H 10/15/16 06:03 - VTE Documentation of Mechanical Device: Graduated compression elastic hosiery Consult Discharge Plan - Plan Referrals: Jere Kay, DEEPA [Primary Care Provider] - 10/25/16 1:00 pm <Fredrick Richardson - Last Filed: 10/15/16 16:19> Date of Encounter: 10/15/16 - Constitutional Vitals: Temp Pulse Resp BP Pulse Ox 98.4 F 78 18 144/89 100 10/15/16 11:48 10/15/16 11:48 10/15/16 16:05 10/15/16 11:48 10/15/16 16:05 Internal Medicine: Result - Labs CBC & Chem 7: 10/15/16 06:03 10/15/16 06:03 Labs: Short CBC 10/15/16 Range/Units 06:03 WBC 7.5 (4.3-11.1) K/mcL Hgb 12.9 (12.9-16.9) g/dL Hct 40.8 (37.5-50.1) % Plt Count 130 L (140-400) K/mcL Neutrophils # 5.3 (1.6-8.9) K/mcL BMP 10/15/16 06:03 Sodium 138 Potassium 4.3 Chloride 101 Carbon Dioxide 29 BUN 16 Creatinine 1.01 Glucose 88 Calcium 8.3 L - ABG Interpretation ABG results: ABG ABG pH 7.46 pH Units (7.32-7.45) H 10/10/16 13:34 ABG pCO2 60 mmHg (35-45) H 10/10/16 13:34 ABG pO2 139 mmHg (85-104) H 10/10/16 13:34 ABG O2 Saturation 99 % (95-98) H 10/10/16 13:34 PT/INR, D-dimer PT 26.1 Seconds (9.4-12.1) H 10/15/16 06:03 - Attending Attestation I examined this patient and my medical decision-making was reviewed with the COATER OPERATOR/PA/Advanced Practice Nurse/Resident Physician. I agree with the documented findings, disposition and treatment plan as described except to the extent set forth below. Patient and family agrees for inpatient rehabilitation.
[2016-10-15] MEDS: Budesonide/Formoterol 160/4.5 MDI IH SCH ×2 (07:45→20:34)
[2016-10-15] MEDS: Tiotropium 18 MCG inhalation IH SCH (07:45)
[2016-10-15] MEDS: *HR* Digoxin 0.125 MG TABLET PO SCH (09:35)
[2016-10-15] MEDS: Furosemide 40 MG TABLET PO SCH (09:35)
[2016-10-15] MEDS: Metoprolol XL (24 HR) Succ 25 MG TAB.ER.24H PO SCH (09:35)
[2016-10-15] MEDS: *HR* Amiodarone 200 MG TABLET PO SCH ×2 (09:35→22:12)
[2016-10-15] MEDS: Aspirin 81 MG TAB.CHEW PO SCH (09:35)
[2016-10-15] MEDS ORDERED: *HR* Warfarin 3 MG TABLET PO SCH (18:00)
[2016-10-16] MEDS: Levalbuterol Neb 0.63 MG/3 ML IH SCH ×6 (00:13→19:53)
[2016-10-16 06:55] LABS: Basophils % 0.3 %; Eosinophils # 0.2 K/mcL (0.0-0.6); Eosinophils % 2.8 %; Hematocrit 37.9 % (37.5-50.1); Hemoglobin 12.4 g/dL (12.9-16.9); Immature Granulocytes % 0.4 % (0-4); Lymphocytes # 1.1 K/mcL (0.6-4.6); Lymphocytes % 14.7 %; Mean Corpuscular HGB Conc 32.7 g/dL (31.6-35.5); Mean Corpuscular Hemoglobin 33.1 pg (28.0-33.3); Mean Corpuscular Volume 101.1 fL (83.0-100.0); Monocytes # 0.7 K/mcL (0.0-1.3); Monocytes % 9.5 %; Neutrophils # 5.3 K/mcL (1.6-8.9); Platelet Count 138 K/mcL (140-400); Red Blood Count 3.75 M/mcL (4.19-5.50); Red Cell Distribution Width 13.8 % (11.5-14.5); Segmented Neutrophils % 72.3 %
[2016-10-16 07:00] LABS: INR 2.6; Prothrombin Time 28.5 Seconds (9.4-12.1)
[2016-10-16 07:05] LABS: BUN/Creatinine Ratio 17 (6-26); Blood Urea Nitrogen 16 mg/dL (8-26); Calcium 8.4 mg/dL (8.6-10.8); Carbon Dioxide 32 mEq/L (19-29); Chloride 103 mEq/L (98-109); Glucose 82 mg/dL (70-99); Osmolality,Calculated 290 (280-300); Potassium 4.2 mEq/L (3.5-4.5); Sodium 140 mEq/L (136-145); eGFR For African Americans > 60 (> 60); eGFR For Non-African Americans > 60 (> 60)
[2016-10-16] MEDS: Budesonide/Formoterol 160/4.5 MDI IH SCH ×2 (08:05→19:54)
[2016-10-16] MEDS: Tiotropium 18 MCG inhalation IH SCH (08:05)
[2016-10-16] MEDS: Furosemide 40 MG TABLET PO SCH (09:43)
[2016-10-16] MEDS: Aspirin 81 MG TAB.CHEW PO SCH (09:43)
[2016-10-16] MEDS: *HR* Digoxin 0.125 MG TABLET PO SCH (09:43)
[2016-10-16] MEDS: Metoprolol XL (24 HR) Succ 25 MG TAB.ER.24H PO SCH (09:43)
[2016-10-16] MEDS: *HR* Amiodarone 200 MG TABLET PO SCH ×2 (09:43→20:29)
--- NOTE | 2016-10-16 15:01 | Internal Med Progress Note ---
Date of Encounter: 10/16/16 Time of Encounter: 14:59 - Assessment and plan (1) Atrial fibrillation with RVR Current Visit: Yes Status: Acute Assessment and plan: Chronic history of atrial fibrillation on warfarin therapy for anticoagulation and rate control with Toprol-XL and amiodarone. Admitted for atrial fibrillation with rapid ventricular rate around 140-150. Patient underwent cardioversion today, has remained in normal sinus rhythm. Cardiology has since signed off Cardiology recommendations are 200 mg amiodarone twice a day Recommend follow-up with Dr. Dent shortly after discharge We will continue to monitor via cardiac telemetry Continue metoprolol succinate and tartrate as needed PT/OT consulted for recommendations for discharge planning and assistance in patient weakness Social work following first assistance and patient placement 10/16/2016 S/P cardioversion doing well in sinus rhythm close observation (2) Acute on chronic systolic CHF (congestive heart failure) Current Visit: Yes Status: Acute Assessment and plan: Recent echo showed ejection fraction of 25%, patient has a known history of nonischemic cardiomyopathy which was diagnosed in 2007. patient has been diuresing well after we placed a Feliciano catheter Continue by mouth Lasix for now Continue strict ins and outs Fluid restriction diet Patient has need for bipap. Cpap has been considered and ruled out. (3) Acute kidney injury Current Visit: Yes Status: Acute Assessment and plan: Renal function back to baseline Continue to monitor with daily chemistry Avoid potential nephrotoxic agents (4) Severe chronic obstructive pulmonary disease Current Visit: Yes Status: Acute Assessment and plan: Currently under control, use BiPAP when necessary Continue Symbicort Xopenex every 4 hours when necessary Supplemental oxygen as needed, wean as tolerated (5) BPH (benign prostatic hyperplasia) Current Visit: Yes Status: Acute Assessment and plan: Continue Feliciano catheter even after discharge per urology recommendation, follow- up with urologist as outpatient in a week for removal of the catheter. Qualifiers: Prostatic enlargement morphology: unspecified morphology Lower urinary tract symptom presence: presence of symptoms unspecified Qualified Code(s): N40.0 - Benign prostatic hyperplasia without lower urinary tract symptoms - Subjective Interval history: seen and examined. no new complaints patient is comfortable and sitting up in chair. - Constitutional Vitals: Temp Pulse Resp BP Pulse Ox 98.1 F 74 16 118/69 97 10/16/16 06:05 10/16/16 06:05 10/16/16 11:45 10/16/16 11:45 10/16/16 11:45 General appearance: Present: cooperative, A&O X 3, pleasant, no acute distress, answers questions appropriately - Head Head exam: Present: atraumatic, normocephalic - Eye Eye exam: Present: PERRL, conjuntiva pink, sclera anicteric Pupils: Present: PERRL - Neck Neck exam general surgery: Present: supple, trachea midline. Absent: lymphadenopathy - Respiratory Respiratory exam: Present: CTAB. Absent: accessory muscle use, rales, rhonchi, wheezes - Cardiovascular Cardiovascular exam: Present: RRR, +S1, +S2. Absent: diastolic murmur, gallop, rubs, systolic murmur - GI/Abdominal GI/Abdominal exam: Present: normal bowel sounds, soft, no peritoneal signs. Absent: distended, tenderness - Extremities Exam Extremities exam: Present: warm, radial pulses palpable and symetrical. Absent : calf tenderness, cyanotic, pedal edema - Neurological Exam Neurological exam: Present: CN II-XII intact, oriented X3, no focal deficits. Absent: pronater drift, facial droop, speech deficit - Skin Skin exam: Present: dry, intact Internal Medicine: Result - Labs CBC & Chem 7: 10/16/16 06:40 10/16/16 06:40 Labs: Short CBC 10/16/16 Range/Units 06:40 WBC 7.4 (4.3-11.1) K/mcL Hgb 12.4 L (12.9-16.9) g/dL Hct 37.9 (37.5-50.1) % Plt Count 138 L (140-400) K/mcL Neutrophils # 5.3 (1.6-8.9) K/mcL BMP 10/16/16 06:40 Sodium 140 Potassium 4.2 Chloride 103 Carbon Dioxide 32 H BUN 16 Creatinine 0.94 Glucose 82 Calcium 8.4 L - ABG Interpretation ABG results: ABG ABG pH 7.46 pH Units (7.32-7.45) H 10/10/16 13:34 ABG pCO2 60 mmHg (35-45) H 10/10/16 13:34 ABG pO2 139 mmHg (85-104) H 10/10/16 13:34 ABG O2 Saturation 99 % (95-98) H 10/10/16 13:34 PT/INR, D-dimer PT 28.5 Seconds (9.4-12.1) H 10/16/16 06:40 - VTE Documentation of Mechanical Device: Graduated compression elastic hosiery Consult Discharge Plan - Plan Referrals: Jere Kay, DEEPA [Primary Care Provider] - 10/25/16 1:00 pm
[2016-10-16] MEDS: *HR* Warfarin 3 MG TABLET PO SCH (18:31)
[2016-10-17] MEDS: Levalbuterol Neb 0.63 MG/3 ML IH SCH ×6 (00:27→20:51)
[2016-10-17 07:03] LABS: INR 2.5; Prothrombin Time 27.8 Seconds (9.4-12.1)
[2016-10-17] MEDS: Budesonide/Formoterol 160/4.5 MDI IH SCH ×2 (07:52→20:51)
[2016-10-17] MEDS: Tiotropium 18 MCG inhalation IH SCH (07:54)
[2016-10-17] MEDS: *HR* Amiodarone 200 MG TABLET PO SCH ×2 (09:21→21:55)
[2016-10-17] MEDS: Aspirin 81 MG TAB.CHEW PO SCH (09:21)
[2016-10-17] MEDS: Furosemide 40 MG TABLET PO SCH (09:21)
[2016-10-17] MEDS: Metoprolol XL (24 HR) Succ 25 MG TAB.ER.24H PO SCH (09:21)
[2016-10-17] MEDS: *HR* Digoxin 0.125 MG TABLET PO SCH (09:21)
--- NOTE | 2016-10-17 15:23 | Internal Med Progress Note ---
Date of Encounter: 10/17/16 Time of Encounter: 15:22 - Assessment and plan (1) Atrial fibrillation with RVR Current Visit: Yes Status: Acute Assessment and plan: Chronic history of atrial fibrillation on warfarin therapy for anticoagulation and rate control with Toprol-XL and amiodarone. Admitted for atrial fibrillation with rapid ventricular rate around 140-150. Patient underwent cardioversion today, has remained in normal sinus rhythm. Cardiology has since signed off Cardiology recommendations are 200 mg amiodarone twice a day Recommend follow-up with Dr. Dent shortly after discharge We will continue to monitor via cardiac telemetry Continue metoprolol succinate and tartrate as needed PT/OT consulted for recommendations for discharge planning and assistance in patient weakness Social work following first assistance and patient placement 10/16/2016 S/P cardioversion doing well in sinus rhythm close observation 10/17/2016 Awaiting for placement (2) Acute on chronic systolic CHF (congestive heart failure) Current Visit: Yes Status: Acute Assessment and plan: Recent echo showed ejection fraction of 25%, patient has a known history of nonischemic cardiomyopathy which was diagnosed in 2007. patient has been diuresing well after we placed a Feliciano catheter Continue by mouth Lasix for now Continue strict ins and outs Fluid restriction diet Patient has need for bipap. Cpap has been considered and ruled out. (3) Acute kidney injury Current Visit: Yes Status: Acute Assessment and plan: Renal function back to baseline Continue to monitor with daily chemistry Avoid potential nephrotoxic agents (4) Severe chronic obstructive pulmonary disease Current Visit: Yes Status: Acute Assessment and plan: Currently under control, use BiPAP when necessary Continue Symbicort Xopenex every 4 hours when necessary Supplemental oxygen as needed, wean as tolerated (5) BPH (benign prostatic hyperplasia) Current Visit: Yes Status: Acute Assessment and plan: Continue Feliciano catheter even after discharge per urology recommendation, follow- up with urologist as outpatient in a week for removal of the catheter. Qualifiers: Prostatic enlargement morphology: unspecified morphology Lower urinary tract symptom presence: presence of symptoms unspecified Qualified Code(s): N40.0 - Benign prostatic hyperplasia without lower urinary tract symptoms - Subjective Interval history: seen and examined. no new complaints patient is comfortable and sitting up in chair. 10/17/2016 Seen and examined. Chart reviewed. Patient is sitting comfortably in a chair. Family at bedside. Patient denies any chest pain, shortness of breath, nausea, vomiting or diarrhea - Constitutional Vitals: Temp Pulse Resp BP Pulse Ox 97.9 F 75 16 122/82 100 10/17/16 07:47 10/17/16 07:47 10/17/16 07:55 10/17/16 07:47 10/17/16 07:55 General appearance: Present: cooperative, A&O X 3, pleasant, no acute distress, answers questions appropriately - Head Head exam: Present: atraumatic, normocephalic - Eye Eye exam: Present: PERRL, conjuntiva pink, sclera anicteric Pupils: Present: PERRL - Neck Neck exam general surgery: Present: supple, trachea midline. Absent: lymphadenopathy - Respiratory Respiratory exam: Present: CTAB. Absent: accessory muscle use, rales, rhonchi, wheezes - Cardiovascular Cardiovascular exam: Present: RRR, +S1, +S2. Absent: diastolic murmur, gallop, rubs, systolic murmur - GI/Abdominal GI/Abdominal exam: Present: normal bowel sounds, soft, no peritoneal signs. Absent: distended, tenderness - Extremities Exam Extremities exam: Present: warm, radial pulses palpable and symetrical. Absent : calf tenderness, cyanotic, pedal edema - Neurological Exam Neurological exam: Present: CN II-XII intact, oriented X3, no focal deficits. Absent: pronater drift, facial droop, speech deficit - Skin Skin exam: Present: dry, intact Internal Medicine: Result - Labs CBC & Chem 7: 10/16/16 06:40 10/16/16 06:40 - ABG Interpretation ABG results: ABG ABG pH 7.46 pH Units (7.32-7.45) H 10/10/16 13:34 ABG pCO2 60 mmHg (35-45) H 10/10/16 13:34 ABG pO2 139 mmHg (85-104) H 10/10/16 13:34 ABG O2 Saturation 99 % (95-98) H 10/10/16 13:34 PT/INR, D-dimer PT 27.8 Seconds (9.4-12.1) H 10/17/16 06:28 - VTE Documentation of Mechanical Device: Graduated compression elastic hosiery Consult Discharge Plan - Plan Referrals: Jere Kay, [employer] [Primary Care Provider] - 10/25/16 1:00 pm
[2016-10-17] MEDS: *HR* Warfarin 3 MG TABLET PO SCH (18:08)
[2016-10-18] MEDS: Levalbuterol Neb 0.63 MG/3 ML IH SCH ×4 (00:09→12:03)
[2016-10-18 03:52] LABS: Basophils % 0.4 %; Eosinophils # 0.2 K/mcL (0.0-0.6); Hematocrit 39.8 % (37.5-50.1); Hemoglobin 13.2 g/dL (12.9-16.9); Immature Granulocytes % 0.2 % (0-4); Lymphocytes # 1.1 K/mcL (0.6-4.6); Lymphocytes % 13.4 %; Mean Corpuscular HGB Conc 33.2 g/dL (31.6-35.5); Mean Corpuscular Hemoglobin 33.2 pg (28.0-33.3); Mean Corpuscular Volume 100.3 fL (83.0-100.0); Mean Platelet Volume 8.7 fL (9.4-12.4); Monocytes # 0.9 K/mcL (0.0-1.3); Monocytes % 11.2 %; Neutrophils # 5.9 K/mcL (1.6-8.9); Platelet Count 150 K/mcL (140-400); Red Blood Count 3.97 M/mcL (4.19-5.50); Red Cell Distribution Width 13.6 % (11.5-14.5); Segmented Neutrophils % 72.8 %
[2016-10-18 04:08] LABS: Alanine Aminotransferase 23 Units/L (0-55); Albumin 2.7 g/dL (3.5-5.0); Albumin/Globulin Ratio 0.8 (1.1-2.2); Alkaline Phosphatase 87 Units/L (38-126); Aspartate Amino Transferase 29 Units/L (5-34); BUN/Creatinine Ratio 20 (6-26); Bilirubin,Total 1.3 mg/dL (0.2-1.2); Blood Urea Nitrogen 18 mg/dL (8-26); Calcium 8.4 mg/dL (8.6-10.8); Carbon Dioxide 29 mEq/L (19-29); Chloride 104 mEq/L (98-109); Globulin 3.4 g/dL (2.4-3.5); Glucose 88 mg/dL (70-99); Osmolality,Calculated 289 (280-300); Potassium 4.1 mEq/L (3.5-4.5); Sodium 139 mEq/L (136-145); Total Protein 6.1 g/dL (6.0-8.3); eGFR For African Americans > 60 (> 60); eGFR For Non-African Americans > 60 (> 60)
[2016-10-18 08:08] VITALS: BP 122/72
[2016-10-18] MEDS: Furosemide 40 MG TABLET PO SCH (09:34)
[2016-10-18] MEDS: Aspirin 81 MG TAB.CHEW PO SCH (09:34)
[2016-10-18] MEDS: *HR* Digoxin 0.125 MG TABLET PO SCH (09:34)
[2016-10-18] MEDS: *HR* Amiodarone 200 MG TABLET PO SCH (09:34)
[2016-10-18] MEDS: Metoprolol XL (24 HR) Succ 25 MG TAB.ER.24H PO SCH (09:34)
[2016-10-18] MEDS: Budesonide/Formoterol 160/4.5 MDI IH SCH (12:03)
[2016-10-18] MEDS: Tiotropium 18 MCG inhalation IH SCH (12:03)
--- NOTE | 2016-10-18 12:59 | Discharge Summary ---
Date of Encounter: 10/18/16 Time of Encounter: 12:51 - Discharge Diagnosis (1) Atrial fibrillation with RVR Priority: Primary Status: Acute (2) Acute on chronic systolic CHF (congestive heart failure) Priority: Primary Status: Acute (3) Acute kidney injury Priority: Primary Status: Acute (4) Severe chronic obstructive pulmonary disease Priority: Secondary Status: Acute (5) BPH (benign prostatic hyperplasia) Priority: Secondary Status: Acute Qualifiers: Prostatic enlargement morphology: unspecified morphology Lower urinary tract symptom presence: presence of symptoms unspecified Qualified Code(s): N40.0 - Benign prostatic hyperplasia without lower urinary tract symptoms - Discharge Medications Prescriptions: Digoxin [Lanoxin] 0.125 mg PO DAILY #30 tablet Metoprolol XL (24 HR) Succ [Toprol Xl] 25 mg PO DAILY #30 tab.er.24h Tiotropium [Spiriva] 18 mcg IH DAILYR #1 inh Home Medications: Allopurinol [Zyloprim 300 MG] 300 mg PO DAILY 12/01/15 [History] Aspirin 81 mg PO DAILY 12/01/15 [History] Furosemide [Lasix] 40 mg PO DAILY 12/01/15 [History] Lisinopril [Zestril] 20 mg PO DAILY 12/01/15 [History] Warfarin [Coumadin] 3 mg PO MOWEFR 12/01/15 [History] Albuterol Sulfate [Proair Hfa] 2 puff IH Q4H PRN 10/04/16 [History] Amiodarone [Cordarone] 200 mg PO DAILY 10/04/16 [History] Fluticasone/Salmeterol [Advair Hfa 115-21 Mcg Inhaler] 2 puff IH BID 10/04/16 [ History] Oxygen 2 l NS AD 10/04/16 [History] Tramadol HCl [Ultram] 50 mg PO Q6H PRN 10/04/16 [History] Warfarin [Coumadin] 1.5 mg PO SUTUTHSA 10/04/16 [History] Digoxin [Lanoxin] 0.125 mg PO DAILY #30 tablet 10/18/16 [Rx] Metoprolol XL (24 HR) Succ [Toprol Xl] 25 mg PO DAILY #30 tab.er.24h 10/18/16 [ Rx] Tiotropium [Spiriva] 18 mcg IH DAILYR #1 inh 06/26/17 [Rx] Allergies/Adverse Reactions: Allergies No Known Allergies Allergy (Verified 09/13/16 00:44) Date of admission: 10/04/16 17:33 Primary care physician: Jere Kay CNP Consults: 10/12/16 09:50 Consult to Physical Therapy [CONS] Routine Comment: Evaluate, develop and implement POC Reason for Consult: weakness OT [Consult to Occupational Therapy] [CONS] Routine Comment: Evaluate, develop and implement POC Reason for Consult: weakness 10/13/16 14:43 Consult to Pipe Insulator [CONS] Routine Reason for SW Consult: pt/ot recommended rehab Discharging clinician: Fredrick Richardson - Patient Status Disposition: Transfer SNF Condition: Good Functional capacity at discharge: uses cane/walker Overall status at discharge: patient is progressing back to baseline - Discharge Instructions Instructions: Heart Failure (DC), Atrial Fibrillation (DC), Cardioversion (DC) , Cardioversion (GEN), Chronic Obstructive Pulmonary Disease (DC), Chronic Hypertension (DC) Follow Up With: Jere Kay CNP [Primary Care Provider] - 10/25/16 1:00 pm - Diet and Activity Activity: as per physical therapy Diet: low fat, low cholesterol, low salt diet Interval History: Mr. Bartlett is a 76 year old male past medical history of systolic heart failure atrial fibrillation MRI AICD placement hypertension. According to the patient for the past week he has been experiencing increasing shortness of breath as well as palpitations during exertion. He normally uses oxygen as needed however over the past week he requires 2 L nasal cannula throughout the day. He has had increased swelling to his lower extremities bilaterally and orthopnea. He denies any cough fevers chills nausea vomiting he has been experiencing diarrhea proximally 2-3 stools daily for the past 4-5 days. He took a laxative several days ago and has not stopped moving his bowels since. According to patient's son patient had an episode last night where he was very short of breath and pale diaphoretic with some mild chest pain which did resolve on own. Today he presented to outpatient cardiology clinic to have pacemaker interrogated and was noted to have heart rate 170s to 180s. He went to the ER for evaluation. Upon arrival to ER heart rate was 151 patient was given 20 of IV Cardizem and started on a Cardizem drip heart rate did slow down to 96. Lab work was obtained which did reveal creatinine at 2.16 troponin was 0.05 BNP 1675. His blood pressure was 99/79 he was given IV fluid bolus. He has been admitted for further work up evaluation. Presently patient appears to be in some slight respiratory distress during exertion. Rate is 80-90 on the monitor atrial fibrillation. Oxygen saturation 9394% 2 L nasal cannula. Lungs sounds are clear heart sounds S1-S2 irregular rate no rubs clicks gallops murmurs noted. He does have edema to lower strength bilaterally. Hospital course: Mr. Bartlett is a 76 year old male - Time Spent with Patient Total time spent providing and/or coordinating discharge services: - Constitutional Vitals: Temp Pulse Resp BP Pulse Ox 98.2 F 82 16 122/72 94 10/18/16 08:07 10/18/16 08:07 10/18/16 08:07 10/18/16 08:07 10/18/16 08:07 General appearance: Present: cooperative, A&O X 3, pleasant, no acute distress, answers questions appropriately - Head Head exam: Present: atraumatic, normocephalic - Eye Eye exam: Present: PERRL, conjuntiva pink, sclera anicteric Pupils: Present: PERRL - Neck Neck exam general surgery: Present: supple, trachea midline. Absent: lymphadenopathy - Respiratory Respiratory exam: Present: CTAB. Absent: accessory muscle use, rales, rhonchi, wheezes - Cardiovascular Cardiovascular exam: Present: RRR, +S1, +S2. Absent: diastolic murmur, gallop, rubs, systolic murmur - GI/Abdominal GI/Abdominal exam: Present: normal bowel sounds, soft, no peritoneal signs. Absent: distended, tenderness - Extremities Exam Extremities exam: Present: warm, radial pulses palpable and symetrical. Absent : calf tenderness, cyanotic, pedal edema - Neurological Exam Neurological exam: Present: CN II-XII intact, oriented X3, no focal deficits. Absent: pronater drift, facial droop, speech deficit - Skin Skin exam: Present: dry, intact - VTE Documentation of Mechanical Device: Graduated compression elastic hosiery
--- NOTE | 2016-10-18 13:06 | Physician Discharge Referral ---
ExtendedCare Referral Info Transfer To: SNF - Diagnosis (1) Atrial fibrillation with RVR Priority: Primary Status: Acute (2) Acute on chronic systolic CHF (congestive heart failure) Priority: Primary Status: Acute (3) Acute kidney injury Priority: Primary Status: Acute (4) Severe chronic obstructive pulmonary disease Priority: Secondary Status: Acute (5) BPH (benign prostatic hyperplasia) Priority: Secondary Status: Acute - Transfer Medications Prescriptions: Digoxin [Lanoxin] 0.125 mg PO DAILY #30 tablet Metoprolol XL (24 HR) Succ [Toprol Xl] 25 mg PO DAILY #30 tab.er.24h Tiotropium [Spiriva] 18 mcg IH DAILYR #1 inh Home Medications: Allopurinol [Zyloprim 300 MG] 300 mg PO DAILY 12/01/15 [History] Aspirin 81 mg PO DAILY 12/01/15 [History] Furosemide [Lasix] 40 mg PO DAILY 12/01/15 [History] Lisinopril [Zestril] 20 mg PO DAILY 12/01/15 [History] Warfarin [Coumadin] 3 mg PO MOWEFR 12/01/15 [History] Albuterol Sulfate [Proair Hfa] 2 puff IH Q4H PRN 10/04/16 [History] Amiodarone [Cordarone] 200 mg PO DAILY 10/04/16 [History] Fluticasone/Salmeterol [Advair Hfa 115-21 Mcg Inhaler] 2 puff IH BID 10/04/16 [ History] Oxygen 2 l NS AD 10/04/16 [History] Tramadol HCl [Ultram] 50 mg PO Q6H PRN 10/04/16 [History] Warfarin [Coumadin] 1.5 mg PO SUTUTHSA 10/04/16 [History] Digoxin [Lanoxin] 0.125 mg PO DAILY #30 tablet 10/18/16 [Rx] Metoprolol XL (24 HR) Succ [Toprol Xl] 25 mg PO DAILY #30 tab.er.24h 10/18/16 [ Rx] Tiotropium [Spiriva] 18 mcg IH DAILYR #1 inh 10/18/16 [Rx] Allergies/Adverse Reactions: Allergies No Known Allergies Allergy (Verified 09/13/16 00:44) - Respiratory Orders Oxygen / L per min (2 L) Smoking Cessation: Smoking cessation has been advised. For more information, call the [place] Tobacco Quit Line at 8-827-XDZJ-NOW. - Advance Directives Code Status: Full Code - Mobility Orders Ambulate - Rehabiliation Orders Rehab Orders: Evaluation for Physical Therapy, Evaluation for Occupational Therapy - Treatments Skin tear care topically daily PRN per policy - Diet Orders Regular CERTIFICATION: I certify that the transfer of the above named patient to an Extended Care Facility is necessary for the continuing treatment of the diagnosis listed. The above information is true and accurate reflection of patient's current condition. Confidential - Redisclosure prohibited without a patient's written consent.
== END 2016-10-18 14:15 | DRG 291 ==
LOC: 2NENU 13:47 → EMEROO 13:47 → 2NENU 17:25 → SUATTDRO 17:33 → ICNU 10-07 14:27 → 2NNU 10-08 13:13 → ICNU 10-08 22:53 → 2NENU 10-12 00:25
PROVIDERS: ADMIT Internal Medicine; ATTEND Internal Medicine

== ENCOUNTER 2016-12-04 15:09 | Inpatient (IN) ==
[2016-12-04 15:34] LABS: Basophils # 0.1 K/mcL (0.0-0.2); Basophils % 0.4 %; Eosinophils # 0.1 K/mcL (0.0-0.6); Eosinophils % 0.8 %; Hematocrit 46.2 % (37.5-50.1); Hemoglobin 15.2 g/dL (12.9-16.9); Immature Granulocytes % 0.5 % (0-4); Lymphocytes # 2.5 K/mcL (0.6-4.6); Lymphocytes % 17.9 %; Mean Corpuscular HGB Conc 32.9 g/dL (31.6-35.5); Mean Corpuscular Hemoglobin 32.3 pg (28.0-33.3); Mean Corpuscular Volume 98.1 fL (83.0-100.0); Mean Platelet Volume 9.2 fL (9.4-12.4); Monocytes # 0.8 K/mcL (0.0-1.3); Monocytes % 5.7 %; Neutrophils # 10.5 K/mcL (1.6-8.9); Platelet Count 208 K/mcL (140-400); Red Blood Count 4.71 M/mcL (4.19-5.50); Red Cell Distribution Width 14.9 % (11.5-14.5); Segmented Neutrophils % 74.7 %
--- NOTE | 2016-12-04 15:35 | Emergency Department Note ---
Disposition Clinical Impression: Healthcare-associated pneumonia, Hypoxia Sepsis Qualifiers: Sepsis type: sepsis due to unspecified organism Qualified Code(s): A41.9 - Sepsis, unspecified organism Disposition: Admitted As Inpatient Condition: Fair Referrals: NONE,PCP [Non-Partnered Physician] - Forms: ED Satisfaction Letter SOB HPI - General Chief Complaint: ED Chest Pain Stated Complaint: Afib CP Time Seen by Provider: 12/04/16 15:10 Source: patient, family Mode of arrival: wheelchair Limitations: no limitations Nursing Notes Reviewed: Yes Vital Signs Reviewed: Yes - History of Present Illness 76-year-old male history of hypertension, gout, A. fib on Coumadin for anticoagulation who presents to the ER from private vehicle with a chief complaint of shortness of breath. Patient states that around noon today he abruptly started feeling short of breath. He states that he felt fine yesterday and even up into this morning. He has not been sick recently denying any fevers cough or shortness of breath prior. He states that he was admitted here within the last few months and stayed and had to be cardioverted for his atrial fibrillation. He does take Coumadin but was on that prior to being diagnosed with A. fib. Family and the patient are unsure exactly why he was placed on Coumadin. He does report a history of COPD but does not wear oxygen at home. He was found to be hypoxic here at 76% on room air. Patient denies chest pain at this time. No nausea vomiting diarrhea or abdominal pain. No other complaints. Pt Subjective Complaint: shortness of breath Onset (ago): hour(s) Severity: severe Consistency/Duration: constant Improves with: oxygen Worsens with: nothing Known history of: COPD, other (A. fib) Associated symptoms: Denies: chest pain, fever, cough, wheezing, lower extremity pain Treatment prior to arrival: none Cough present: No Sputum production: No Sputum Amount: None - Related Data Home oxygen amount: none Home Medications Medication Instructions Recorded Confirmed Allopurinol [Zyloprim 300 MG] 300 mg PO DAILY 12/01/15 12/04/16 Aspirin 81 mg PO DAILY 12/01/15 12/04/16 Furosemide [Lasix] 40 mg PO DAILY 12/01/15 12/04/16 Lisinopril [Zestril] 20 mg PO DAILY 12/01/15 12/04/16 Warfarin [Coumadin] 3 mg PO MOFR 12/01/15 12/04/16 Albuterol Sulfate [Proair Hfa] 2 puff IH Q4H PRN 10/04/16 12/04/16 Amiodarone [Cordarone] 200 mg PO DAILY 10/04/16 12/04/16 Fluticasone/Salmeterol [Advair Hfa 2 puff IH BID 10/04/16 12/04/16 115-21 Mcg Inhaler] Oxygen 2 l NS AD PRN 10/04/16 12/04/16 Tramadol HCl [Ultram] 50 mg PO Q6H PRN 10/04/16 12/04/16 Warfarin [Coumadin] 1.5 mg PO SUTUWETHSA 10/04/16 12/04/16 Previous Rx's Medication Instructions Recorded Digoxin [Lanoxin] 0.125 mg PO DAILY #30 tablet 10/18/16 Metoprolol XL (24 HR) Succ [Toprol 25 mg PO DAILY #30 tab.er.24h 10/18/16 Xl] Tiotropium [Spiriva] 18 mcg IH DAILYR #1 inh 10/18/16 Allergies Allergy/AdvReac Type Severity Reaction Status Date / Time No Known Allergies Allergy Verified 12/04/16 16:21 All systems ED: reviewed and negative except as stated. Constitutional: Denies: fever Cardiovascular: Denies: chest pain Respiratory: Reports: dyspnea. Denies: cough, wheezes Gastrointestinal: Denies: abdominal pain, nausea, vomiting Past Medical History - Past Medical History Attestation: Yes The following information was validated with the patient. Source: patient Medical history: Reports: atrial fibrillation, COPD, CVA, DVT, hyperlipidemia, hypertension, myocardial infarction Surgical history: Reports: pacemaker/AICD Psychiatric history: Reports: no psych history - Social History Smoking Status: Former smoker Smokeless Tobacco Status: No Alcohol use: Reports: none Drug use: Reports: none Physical Exam - General Limitations: no limitations General appearance: alert, in no apparent distress - Head Head exam: atraumatic, normocephalic, normal inspection - Eye Eye exam: Present: normal appearance, EOMI - ENT ENT exam: normal exam - Neck Neck exam: Present: normal inspection - Chest Chest inspection: Present: normal inspection, symmetric chest wall rise - Respiratory Respiratory exam: Present: normal lung sounds bilaterally. Absent: wheezes, accessory muscle use - Cardiovascular Cardiovascular exam: Present: regular rate, normal rhythm, normal heart sounds - Abdominal Exam Abdominal exam: Present: soft, Non-Tender. Absent: tenderness - Extremities Exam Extremities exam: Present: normal inspection, full ROM - Expanded Upper Extremity Exam Shoulder exam: Present: normal inspection, full ROM Arm exam: Present: normal inspection, full ROM Elbow exam: Present: normal inspection, full ROM Forearm/Wrist exam: Present: normal inspection, full ROM Hand exam: Present: normal inspection, full ROM Vascular exam: Normal: radial pulse - Expanded Lower Extremity Exam Hip/Pelvis exam: Present: normal inspection, full ROM Upper leg exam: Present: normal inspection, full ROM Knee exam: Present: normal inspection, full ROM Lower leg exam: Present: normal inspection, full ROM Ankle exam: Present: normal inspection, full ROM Foot/toe exam: Present: normal inspection, full ROM - Neurological Exam Neurological exam: Present: alert, other (GCS 15. Moves all extremities equally. Nonfocal neurologic exam.) - Psychiatric Psychiatric exam: Present: normal affect, normal mood - Skin Skin exam: Present: warm, dry, intact, normal color Course Course Narrative: Patient seen and examined the time of arrival. Placed on 15 L high flow nasal cannula. Oxygen saturation improved into the high 90s. Respiratory has been called for breathing treatment and to bring BiPAP needed. We will obtain an EKG, chest x-ray as well as labs including troponin and BNP. We will also check his coag studies and d-dimer given his hypoxia. - Reevaluation(s) Reevaluation #1: I discussed resulay. There is an area of concern on his chest x-ray which warrants further evaluation with a CT scan. The patient is in agreement and understands that he will be admitted today for hypoxia regardless of the outcomes of the scan. Reevaluation #2: Discussed results of the CT scan with the patient. His lactate came back at 1 as well. He is hemodynamically stable and we were holding from IV fluid bolus in the setting of congestive heart failure. Blood cultures ordered and HCAP Antibiotics initiated. Vital Signs Temperature 97 F L 12/04/16 15:12 Pulse Rate 93 12/04/16 15:12 Respiratory Rate 24 12/04/16 15:12 Blood Pressure 189/109 12/04/16 15:12 O2 Sat by Pulse Oximetry 97 12/04/16 15:12 Temperature 98.7 F 12/04/16 16:23 Pulse Rate 73 12/04/16 16:23 Respiratory Rate 24 12/04/16 16:23 Blood Pressure 159/106 12/04/16 16:23 O2 Sat by Pulse Oximetry 97 12/04/16 16:23 Oxygen Delivery Oxygen Delivery Nasal Cannula Shortness of Breath/Dyspnea - [facility] Narrative Medical decision making narrative: 76-year-old mthe ER due to shortness oh. He was found to be hypoxic here at 76 % on room air. He does have a history of COPD but is not on oxygen at home. Patient's hypoxia quickly improved with nasal cannula. His EKG shows T-wave inversions more pronounced than previously but no gross ST depressions or elevations. Chest x-ray showed a concern for right middle lobe mass versus infiltrate with CT showing an infectious etiology. Patient was recently hospitalized immediate healthcare associated pneumonia treatment. We did hold on IV fluids as the patient is hemodynamically stable and appears to have some exacerbation of his heart failure. Blood cultures and lactate obtained. Admitted to the hospitalist service for further management. - Lab Data Lab results reviewed: Yes I reviewed the patient's lab results. Result diagrams: 12/04/16 15:25 12/04/16 15:25 Lab Results 12/04/16 12/04/16 12/04/16 Range/Units 15:25 15:25 15:25 WBC 14.1 H (4.3-11.1) K/mcL RBC 4.71 (4.19-5.50) M/mcL Hgb 15.2 (12.9-16.9) g/dL Hct 46.2 (37.5-50.1) % MCV 98.1 (83.0-100.0) fL MCH 32.3 (28.0-33.3) pg MCHC 32.9 (31.6-35.5) g/dL RDW 14.9 H (11.5-14.5) % Plt Count 208 (140-400) K/mcL MPV 9.2 L (9.4-12.4) fL Immature Gran % 0.5 (0-4) % Seg Neutrophils % 74.7 % Lymphocytes % 17.9 % Monocytes % 5.7 % Eosinophils % 0.8 % Basophils % 0.4 % Neutrophils # 10.5 H (1.6-8.9) K/mcL Lymphocytes # 2.5 (0.6-4.6) K/mcL Monocytes # 0.8 (0.0-1.3) K/mcL Eosinophils # 0.1 (0.0-0.6) K/mcL Basophils # 0.1 (0.0-0.2) K/mcL PT (9.4-12.1) Seconds INR APTT (26.0-36.0) Seconds D-Dimer (0-500) ng/mLFEU Sodium 142 (136-145) mEq/L Potassium 4.1 (3.5-4.5) mEq/L Chloride 104 (98-109) mEq/L Carbon Dioxide 29 (19-29) mEq/L BUN 12 (8-26) mg/dL Creatinine 1.19 (0.72-1.25) mg/dL Est GFR ( Amer) > 60 (> 60) Est GFR (Non-Af Amer) 60 (> 60) BUN/Creatinine Ratio 10 (6-26) Glucose 218 H (70-99) mg/dL Calculated Osmolality 300 (280-300) Lactic Acid (0.5-2.2) mmol/L Calcium 8.8 (8.6-10.8) mg/dL Troponin I (0-0.03) ng/mL B-Natriuretic Peptide 2075 H (0-100) pg/mL 12/04/16 12/04/16 12/04/16 Range/Units 15:25 15:25 16:47 WBC (4.3-11.1) K/mcL RBC (4.19-5.50) M/mcL Hgb (12.9-16.9) g/dL Hct (37.5-50.1) % MCV (83.0-100.0) fL MCH (28.0-33.3) pg MCHC (31.6-35.5) g/dL RDW (11.5-14.5) % Plt Count (140-400) K/mcL MPV (9.4-12.4) fL Immature Gran % (0-4) % Seg Neutrophils % % Lymphocytes % % Monocytes % % Eosinophils % % Basophils % % Neutrophils # (1.6-8.9) K/mcL Lymphocytes # (0.6-4.6) K/mcL Monocytes # (0.0-1.3) K/mcL Eosinophils # (0.0-0.6) K/mcL Basophils # (0.0-0.2) K/mcL PT 40.4 H (9.4-12.1) Seconds INR 3.6 APTT 40.7 H (26.0-36.0) Seconds D-Dimer 463 (0-500) ng/mLFEU Sodium (136-145) mEq/L Potassium (3.5-4.5) mEq/L Chloride (98-109) mEq/L Carbon Dioxide (19-29) mEq/L BUN (8-26) mg/dL Creatinine (0.72-1.25) mg/dL Est GFR ( Amer) (> 60) Est GFR (Non-Af Amer) (> 60) BUN/Creatinine Ratio (6-26) Glucose (70-99) mg/dL Calculated Osmolality (280-300) Lactic Acid 1.0 (0.5-2.2) mmol/L Calcium (8.6-10.8) mg/dL Troponin I 0.01 (0-0.03) ng/mL B-Natriuretic Peptide (0-100) pg/mL - Radiology Data Radiology results reviewed: Yes I reviewed the patient's radiology results. Chest X-Ray 12/04/16 15:11 IMPRESSION: Masslike focus of the right mid lung, which may be due to focal pneumonia or malignancy. Recommend further evaluation with a CT of the chest. Pulmonary venous congestion and mild interstitial edema D/ / Sergio Smith MD / Sergio Smith MD Interpreting Provider: Sergio Smith MD Chest CT 12/04/16 15:48 IMPRESSION: 1. Patchy bilateral predominantly perihilar infiltrate, most confluent in the right upper lobe. The findings are most consistent with pneumonia, and opportunistic infection should be considered . Less likely possibility would be asymmetric cardiogenic edema. 2. Cardiomegaly. Trace bilateral pleural effusions. 3. Stable noncalcified right lower lobe pulmonary nodule is 16 mm maximally. No follow-up imaging indicated. D/ / Buck Almazan MD / Buck Almazan MD Interpreting Provider: Buck Almazan MD - EKG Data EKG attestation: Yes I reviewed and interpreted this EKG. EKG results narrative: EKG demonstrates normal sinus rhythm with a rate Cs. Normal axis. AL interval 194 QRS duration 118 QTC 402. He has been more pronounced T wave inversions in the lateral leads. No ST elevations. No acute ischemic findings. Changes from previous EKG on 10/14/16 include T-wave inversions in lateral leads. S.B.A.Madan. - Davey.Brea Situation: Demographics, MOA Background: Presenting Complaint, Relevant PMH, Meds, & Allergies Assessment: Vital Signs, Course and respsone to treatment, Exam Concerns, Patient/Family Expectation, Pertinant Lab Results, Outstanding Labs Recommendation: Barrier(s) to disposition, Recommendation based on pending studies, treatments, or consults [email or web address] Report Given to: [facility] Time: 17:35
[2016-12-04 15:41] LABS: INR 3.6; Prothrombin Time 40.4 Seconds (9.4-12.1)
[2016-12-04 15:43] LABS: Activated Partial Thrombo Time 40.7 Seconds (26.0-36.0)
[2016-12-04 15:46] LABS: BUN/Creatinine Ratio 10 (6-26); Blood Urea Nitrogen 12 mg/dL (8-26); Calcium 8.8 mg/dL (8.6-10.8); Carbon Dioxide 29 mEq/L (19-29); Chloride 104 mEq/L (98-109); Glucose 218 mg/dL (70-99); Osmolality,Calculated 300 (280-300); Potassium 4.1 mEq/L (3.5-4.5); Sodium 142 mEq/L (136-145); eGFR For African Americans > 60 (> 60); eGFR For Non-African Americans 60 (> 60)
[2016-12-04] MEDS ORDERED: Vancomycin 1,250 MG in D5% in Water 250 ML IVPB ONE ×2 (16:21→16:28)
[2016-12-04] MEDS ORDERED: Piperacillin/Tazobactam 3.375 GM in D5% in Water (Mini-Bag+) 100 ML IVPB ONE (16:21)
[2016-12-04] MEDS ORDERED: Levofloxacin 750 MG/150 ML 750 MG/150 ML BAG IVPB ONE (16:21)
--- NOTE | 2016-12-04 16:32 | Emergency Department Note ---
START Narrative - START START: I examined this patient and my medical decision-making was reviewed with the Resident Physician. I agree with the documented findings, disposition and treatment plan as described except to the extent set forth below. 76-year-old male presents with shortness of breath. Chest x-ray revealed an abnormal mass in the right midlung zone. CT scan looks to be more infectious then any mass. Patient will need to be admitted and started on antibiotics. His vitals are stable at this time. He remains afebrile.
[2016-12-04] MEDS ORDERED: Naloxone 0.4 MG/ML INJ IVP PRN (18:54)
[2016-12-04] MEDS ORDERED: traMADol 50 MG TABLET PO PRN (19:01)
--- NOTE | 2016-12-04 19:24 | Internal Med History&Physical ---
<Tiffany Mendoza M - Last Filed: 12/04/16 20:10> Date of Encounter: 12/04/16 Time of Encounter: 19:18 Assessment and Plan (1) Healthcare-associated pneumonia Current visit: Yes Status: Acute Patient recently admitted for afib/rvr. Here today with shortness of breath. CT chest consistent with pneumonia. WBC elevated to 14.1. Blood cultures sent. broad spectrum antibiotics with vanc, levaquin and zosyn. duoneb treatments QID albuterol nebulizers Q2hr prn mucinex BID titrate oxygen to maintain saturations > 92%. (2) Systolic CHF, acute on chronic Current visit: Yes Status: Acute Patient with history of CHF. Echo 09/23/16 showed LVEF of 25% with severe LV dysfunction. Today he presents with shortness of breath and found to have pneumonia, however CXR also shows pulmonary vascular congestion and mild interstitial edema. BNP elevated to 2075 up from previous baseline of 1800. Patient reports IV lasix dropped his pressure too low. Will increase lasix to 40mg PO BID. Cardiac diet with 1.2L fluid restriction. Daily weights and strict I/Os. titrate oxygen to maintain saturation > 92%. (3) Supratherapeutic INR Current visit: Yes Status: Acute INR of 3.6. Patient denies any black or bloody stools or other signs of bleeding. Hgb stable at 15.2. Hold coumadin tonight, check PT/INR/PTT daily. Pharmacy to dose coumadin. (4) Acute on chronic respiratory failure with hypoxemia Current visit: Yes Status: Acute Patient with COPD and CHF, wears oxygen at home PRN. Today he presented with shortness of breath and was hypoxic with saturation on room air of 76%. He is requiring 4L to maintain saturations in the 90s. He was found to have pneumonia and CHF. Treating pneumonia with IV antibiotics, nebulizers. Treating CHF with increased lasix, fluid restriction. Respiratory therapy consulted for cpap vs. bipap overnight. (5) Sepsis Current visit: Yes Status: Acute Patient with pneumonia, WBC elevated to 14.1, HR of 93 on presentation, and tachypnea, meeting criteria for sepsis. blood cultures drawn and sent. Lactate normal at 1.0 broad spectrum antibiotics started with vanc, zosyn and levaquin. Qualifiers: Sepsis type: sepsis due to unspecified organism Qualified Code(s): A41.9 - Sepsis, unspecified organism (6) Atrial fibrillation Current visit: Yes Status: Acute Patient with history of afib, on amiodarone, metoprolol for rate and rhythm control and coumadin for anticoagulation. Patient also has pacemaker. His rhythm is currently paced in the 60s. Continue home doses of amiodarone and metoprolol. Coumadin to be dosed by pharmacy due to supratherapeutic INR. Qualifiers: Atrial fibrillation type: paroxysmal Qualified Code(s): I48.0 - Paroxysmal atrial fibrillation (7) DVT prophylaxis Current visit: Yes Status: Acute anti-embolic stockings Patient on coumadin for afib and INR is supratherapeutic, additional pharmacologic prophylaxis not warranted. Internal Medicine - H&P: HPI Chief complaint: shortness of breath Admitted From: Emergency Dept Plans for Post Hospital Care: Home History of present illness: Mr. Bartlett is a 76 year old male with HTN, HLD, CAD, afib on coumadin, COPD, pacemaker/AICD, CHF presents to the ED with complaints of sudden onset of shortness of breath today. Patient reports today he suddenly became very short of breath. He has been having sweats on and off for the last week, and he reports wheezing. He denies any chills, fever, cough, headache or lightheadedness. He does reports diarrhea on and off for the last week as well. Patient was satting 76% on room air on presentation to the ED. Evaluation revealed elevated WBC of 14.1. BNP was elevated to 2075 with recent baseline of 1800, CXR showed right mid lung mass, pulmonary vascular congestion and mild interstitial edema. CT of the chest showed patchy bilateral infiltrates most predominantly in RUL, consistent with infectious process. INR was supratherapeutic at 3.6. Patient was hyperglycemic with glucose of 218. Lactate was normal at 1.0 and troponin was normal at 0.01. ekg showed ventricular paced rhythm. He was started on broad-spectrum antibiotics for HCAP, blood cultures were drawn and sent. On exam, patient alert and oriented, in no acute distress. Heart had regular rate and rhythm, lungs were diminished. He was satting in the 90s on 4L. He had +1 BLE edema. Past Med Surg Social Fam HX - Past Medical History Medical history: atrial fibrillation, CHF, COPD, CVA, DVT, hyperlipidemia, hypertension, myocardial infarction Psychiatric history: no psych history - Past Surgical History Surgical History: pacemaker/AICD - Social History Smoking Status: Former smoker Smokeless Tobacco Status: No Alcohol use: none Drug use: none - Family History Mother Living Status: Age at : 42 Hx Family Cardiac Disorders: Yes Father Living Status: Age at : 79 Hx Family Cardiac Disorders: Yes Hx Family Neurologic Disorders: Yes (yakov) Internal Medicine - H&P: Meds Allopurinol [Zyloprim 300 MG] 300 mg PO DAILY 12/01/15 [History] Aspirin 81 mg PO DAILY 12/01/15 [History] Furosemide [Lasix] 40 mg PO DAILY 12/01/15 [History] Lisinopril [Zestril] 20 mg PO DAILY 12/01/15 [History] Warfarin [Coumadin] 3 mg PO MOFR 12/01/15 [History] Albuterol Sulfate [Proair Hfa] 2 puff IH Q4H PRN 10/04/16 [History] Amiodarone [Cordarone] 200 mg PO DAILY 10/04/16 [History] Fluticasone/Salmeterol [Advair Hfa 115-21 Mcg Inhaler] 2 puff IH BID 10/04/16 [ History] Oxygen 2 l NS AD PRN 10/04/16 [History] Tramadol HCl [Ultram] 50 mg PO Q6H PRN 10/04/16 [History] Warfarin [Coumadin] 1.5 mg PO SUTUWETHSA 10/04/16 [History] Digoxin [Lanoxin] 0.125 mg PO DAILY #30 tablet 10/18/16 [Rx] Metoprolol XL (24 HR) Succ [Toprol Xl] 25 mg PO DAILY #30 tab.er.24h 10/18/16 [ Rx] Tiotropium [Spiriva] 18 mcg IH DAILYR #1 inh 10/18/16 [Rx] Allergies No Known Allergies Allergy (Verified 12/04/16 16:21) All Systems PM: A 10-system review of systems was performed and is negative for pertinent findings except as documented above in the HPI. - Constitutional Constitutional: no chills, no fever(s), no night sweats - EENT Eyes: no change in vision, no discharge, no pain, no photophobia Ears: no ear discharge, no ear pain, no tinnitus Nose, mouth and throat: no dysphagia, no nasal discharge, no neck pain, no sore throat - Cardiovascular Cardiovascular ROS IM: diaphoresis, dyspnea, no chest pain, no lightheadedness, no palpitations, no syncope - Respiratory Respiratory: dyspnea, wheezing, no cough, no excessive phlegm production - Gastrointestinal Gastrointestinal: diarrhea, no abdominal pain, no hematemesis, no hematochezia, no melena, no nausea, no vomiting - Musculoskeletal Musculoskeletal ROS IM: no numbness, no tingling - Integumentary Integumentary IM: no rash, no unusual bruising - Neurological Neurological ROS: no confusion, no convulsions, no focal weakness, no numbness, no tingling, no tremor(s) - Hematologic/Lymphatic Hematologic/Lymphatic: no easy bruising - Constitutional Vitals: Temp Pulse Resp BP Pulse Ox 98.7 F 86 16 142/81 97 12/04/16 16:23 12/04/16 17:38 12/04/16 18:30 12/04/16 18:30 12/04/16 17:38 General appearance: Present: A&O X 3, pleasant, no acute distress - Head Head exam: Present: atraumatic, normocephalic - Eye Eye exam: Present: PERRL, conjuntiva pink, sclera anicteric Pupils: Present: PERRL - Neck Neck exam general surgery: Present: supple, trachea midline. Absent: lymphadenopathy - Respiratory Respiratory exam: Present: decreased breath sounds, wheezes, tachypnea. Absent : accessory muscle use, rales, rhonchi - Cardiovascular Cardiovascular exam: Present: RRR, +S1, +S2, systolic murmur. Absent: diastolic murmur, gallop, rubs - GI/Abdominal GI/Abdominal exam: Present: normal bowel sounds, soft, no peritoneal signs. Absent: distended, tenderness - Extremities Exam Extremities exam: Present: pedal edema (+1 BLE), warm, radial pulses palpable and symmetrical. Absent: calf tenderness, cyanotic - Neurological Exam Neurological exam: Present: CN II-XII intact, oriented X3, no focal deficits. Absent: facial droop, speech deficit - Skin Skin exam: Present: dry, intact Internal Med - H&P Results - Labs CBC & Chem 7: 12/04/16 15:25 12/04/16 15:25 Labs: All Lab Results (24 Hours) 12/04/16 12/04/16 12/04/16 Range/Units 15:25 15:25 15:25 WBC 14.1 H (4.3-11.1) K/mcL RBC 4.71 (4.19-5.50) M/mcL Hgb 15.2 (12.9-16.9) g/dL Hct 46.2 (37.5-50.1) % MCV 98.1 (83.0-100.0) fL MCH 32.3 (28.0-33.3) pg MCHC 32.9 (31.6-35.5) g/dL RDW 14.9 H (11.5-14.5) % Plt Count 208 (140-400) K/mcL MPV 9.2 L (9.4-12.4) fL Immature Gran % 0.5 (0-4) % Seg Neutrophils % 74.7 % Lymphocytes % 17.9 % Monocytes % 5.7 % Eosinophils % 0.8 % Basophils % 0.4 % Neutrophils # 10.5 H (1.6-8.9) K/mcL Lymphocytes # 2.5 (0.6-4.6) K/mcL Monocytes # 0.8 (0.0-1.3) K/mcL Eosinophils # 0.1 (0.0-0.6) K/mcL Basophils # 0.1 (0.0-0.2) K/mcL PT (9.4-12.1) Seconds INR APTT (26.0-36.0) Seconds D-Dimer (0-500) ng/mLFEU Sodium 142 (136-145) mEq/L Potassium 4.1 (3.5-4.5) mEq/L Chloride 104 (98-109) mEq/L Carbon Dioxide 29 (19-29) mEq/L BUN 12 (8-26) mg/dL Creatinine 1.19 (0.72-1.25) mg/dL Est GFR ( Amer) > 60 (> 60) Est GFR (Non-Af Amer) 60 (> 60) BUN/Creatinine Ratio 10 (6-26) Glucose 218 H (70-99) mg/dL Calculated Osmolality 300 (280-300) Lactic Acid (0.5-2.2) mmol/L Calcium 8.8 (8.6-10.8) mg/dL Troponin I (0-0.03) ng/mL B-Natriuretic Peptide 2075 H (0-100) pg/mL 12/04/16 12/04/16 12/04/16 Range/Units 15:25 15:25 16:47 WBC (4.3-11.1) K/mcL RBC (4.19-5.50) M/mcL Hgb (12.9-16.9) g/dL Hct (37.5-50.1) % MCV (83.0-100.0) fL MCH (28.0-33.3) pg MCHC (31.6-35.5) g/dL RDW (11.5-14.5) % Plt Count (140-400) K/mcL MPV (9.4-12.4) fL Immature Gran % (0-4) % Seg Neutrophils % % Lymphocytes % % Monocytes % % Eosinophils % % Basophils % % Neutrophils # (1.6-8.9) K/mcL Lymphocytes # (0.6-4.6) K/mcL Monocytes # (0.0-1.3) K/mcL Eosinophils # (0.0-0.6) K/mcL Basophils # (0.0-0.2) K/mcL PT 40.4 H (9.4-12.1) Seconds INR 3.6 APTT 40.7 H (26.0-36.0) Seconds D-Dimer 463 (0-500) ng/mLFEU Sodium (136-145) mEq/L Potassium (3.5-4.5) mEq/L Chloride (98-109) mEq/L Carbon Dioxide (19-29) mEq/L BUN (8-26) mg/dL Creatinine (0.72-1.25) mg/dL Est GFR ( Amer) (> 60) Est GFR (Non-Af Amer) (> 60) BUN/Creatinine Ratio (6-26) Glucose (70-99) mg/dL Calculated Osmolality (280-300) Lactic Acid 1.0 (0.5-2.2) mmol/L Calcium (8.6-10.8) mg/dL Troponin I 0.01 (0-0.03) ng/mL B-Natriuretic Peptide (0-100) pg/mL 12/04/16 Range/Units 18:53 WBC (4.3-11.1) K/mcL RBC (4.19-5.50) M/mcL Hgb (12.9-16.9) g/dL Hct (37.5-50.1) % MCV (83.0-100.0) fL MCH (28.0-33.3) pg MCHC (31.6-35.5) g/dL RDW (11.5-14.5) % Plt Count (140-400) K/mcL MPV (9.4-12.4) fL Immature Gran % (0-4) % Seg Neutrophils % % Lymphocytes % % Monocytes % % Eosinophils % % Basophils % % Neutrophils # (1.6-8.9) K/mcL Lymphocytes # (0.6-4.6) K/mcL Monocytes # (0.0-1.3) K/mcL Eosinophils # (0.0-0.6) K/mcL Basophils # (0.0-0.2) K/mcL PT (9.4-12.1) Seconds INR APTT (26.0-36.0) Seconds D-Dimer (0-500) ng/mLFEU Sodium (136-145) mEq/L Potassium (3.5-4.5) mEq/L Chloride (98-109) mEq/L Carbon Dioxide (19-29) mEq/L BUN (8-26) mg/dL Creatinine (0.72-1.25) mg/dL Est GFR ( Amer) (> 60) Est GFR (Non-Af Amer) (> 60) BUN/Creatinine Ratio (6-26) Glucose (70-99) mg/dL Calculated Osmolality (280-300) Lactic Acid 0.9 (0.5-2.2) mmol/L Calcium (8.6-10.8) mg/dL Troponin I (0-0.03) ng/mL B-Natriuretic Peptide (0-100) pg/mL - Diagnostic Studies Chest x-ray Additional comments: Chest X-Ray 12/04/16 15:11 IMPRESSION: Masslike focus of the right mid lung, which may be due to focal pneumonia or malignancy. Recommend further evaluation with a CT of the chest. Pulmonary venous congestion and mild interstitial edema D/ / Sergio Smith MD / Sergio Smith MD Interpreting Provider: Sergio Smith MD CT scan - chest Additional comments: Chest CT 12/04/16 15:48 IMPRESSION: 1. Patchy bilateral predominantly perihilar infiltrate, most confluent in the right upper lobe. The findings are most consistent with pneumonia, and opportunistic infection should be considered. Less likely possibility would be asymmetric cardiogenic edema. 2. Cardiomegaly. Trace bilateral pleural effusions. 3. Stable noncalcified right lower lobe pulmonary nodule is 16 mm maximally. No follow-up imaging indicated. D/ / 12/04/2016 17:23:45 Buck Almazan MD / annika Interpreting Provider: Buck Almazan MD <Jaciel Morris - Last Filed: 12/05/16 08:41> Date of Encounter: 12/05/16 Internal Medicine - H&P: HPI History of present illness: Mr. Bartlett is a 76 year old male All Systems PM: A 10-system review of systems was performed and is negative for pertinent findings except as documented above in the HPI. - Constitutional Vitals: Temp Pulse Resp BP Pulse Ox 98.1 F 60 16 137/77 100 12/05/16 07:59 12/05/16 07:59 12/05/16 07:59 12/05/16 07:59 12/05/16 07:59 Internal Med - H&P Results - Labs CBC & Chem 7: 12/05/16 05:12 12/05/16 05:12 Labs: Short CBC 12/05/16 Range/Units 05:12 WBC 10.3 (4.3-11.1) K/mcL Hgb 13.2 D (12.9-16.9) g/dL Hct 39.8 (37.5-50.1) % Plt Count 149 (140-400) K/mcL Neutrophils # 7.5 (1.6-8.9) K/mcL BMP 08/13/17 05:12 Sodium 141 Potassium 3.6 Chloride 105 Carbon Dioxide 30 H BUN 11 Creatinine 0.87 Glucose 81 Calcium 8.4 L Urine 12/05/16 Range/Units 01:45 Urine Color Yellow (Yellow) Urine Clarity Turbid A (Clear) Urine pH 6.5 (5.0-8.0) pH Units Ur Specific [place] 1.011 (1.010-1.025) Urine Protein Negative (Neg-Trace) mg/dL Urine Glucose (UA) Normal (Normal) mg/dL - Attending Attestation I examined this patient and my medical decision-making was reviewed with the ROBOTICS ENGINEER. I agree with the documented findings, disposition and treatment plan as described .
[2016-12-04] MEDS ORDERED: Albuterol 2.5 MG/3 ML NEBULIZER IH PRN (19:40)
[2016-12-04] MEDS: Furosemide 40 MG TABLET PO SCH (20:59)
[2016-12-04] MEDS: Ipratropium/Albuterol Neb 3 ML IH SCH (22:38)
[2016-12-04] MEDS: Budesonide/Formoterol 160/4.5 MDI IH SCH (22:39)
[2016-12-05] MEDS: Piperacillin/Tazobactam 3.375 GM in D5% in Water (Mini-Bag+) 100 ML IVPB SCH ×3 (00:04→17:55)
[2016-12-05 02:04] LABS: Bilirubin,Urine Negative (Negative); Blood,Urine Small (Negative); Clarity,Urine Turbid (Clear); Color,Urine Yellow (Yellow); Glucose,Urine (UA) Normal (Normal); Ketones,Urine Negative (Negative); Leukocyte Esterase,Urine Large (Negative); Nitrite,Urine Negative (Negative); PH,Urine 6.5 pH Units (5.0-8.0); Protein,Urine Negative (Neg-Trace); Specific Gravity,Urine 1.011 (1.010-1.025); Urobilinogen,Urine Normal (Normal)
[2016-12-05 02:07] LABS: Bacteria,Urine None Seen per hpf (None-Few); Hyaline Casts,Urine None Seen per lpf (None-Few); Squamous Epithelial Cell,Urine None Seen per lpf (None-Few); WBC,Urine TNTC per hpf (0-3)
[2016-12-05] MEDS: Ipratropium/Albuterol Neb 3 ML IH SCH ×4 (04:16→22:47)
[2016-12-05] MEDS: Vancomycin 1,250 MG in D5% in Water 250 ML IVPB SCH (05:12)
[2016-12-05 06:19] LABS: Basophils % 0.3 %; Eosinophils # 0.1 K/mcL (0.0-0.6); Eosinophils % 0.7 %; Hematocrit 39.8 % (37.5-50.1); Immature Granulocytes % 0.3 % (0-4); Lymphocytes # 1.7 K/mcL (0.6-4.6); Lymphocytes % 16.2 %; Mean Corpuscular HGB Conc 33.2 g/dL (31.6-35.5); Mean Corpuscular Hemoglobin 32.8 pg (28.0-33.3); Mean Corpuscular Volume 98.8 fL (83.0-100.0); Mean Platelet Volume 9.4 fL (9.4-12.4); Monocytes % 9.9 %; Neutrophils # 7.5 K/mcL (1.6-8.9); Platelet Count 149 K/mcL (140-400); Red Blood Count 4.03 M/mcL (4.19-5.50); Red Cell Distribution Width 14.9 % (11.5-14.5); Segmented Neutrophils % 72.6 %
[2016-12-05 06:22] LABS: Hemoglobin 13.2 g/dL (12.9-16.9)
[2016-12-05 06:27] LABS: INR 3.9
[2016-12-05 06:29] LABS: Activated Partial Thrombo Time 43.8 Seconds (26.0-36.0)
[2016-12-05 06:33] LABS: BUN/Creatinine Ratio 13 (6-26); Blood Urea Nitrogen 11 mg/dL (8-26); Calcium 8.4 mg/dL (8.6-10.8); Carbon Dioxide 30 mEq/L (19-29); Chloride 105 mEq/L (98-109); Glucose 81 mg/dL (70-99); Osmolality,Calculated 290 (280-300); Potassium 3.6 mEq/L (3.5-4.5); Prothrombin Time 44.1 Seconds (9.4-12.1); Sodium 141 mEq/L (136-145); eGFR For African Americans > 60 (> 60); eGFR For Non-African Americans > 60 (> 60)
[2016-12-05] MEDS: *HR* Amiodarone 200 MG TABLET PO SCH (08:11)
[2016-12-05] MEDS: Metoprolol XL (24 HR) Succ 25 MG TAB.ER.24H PO SCH (08:12)
[2016-12-05] MEDS: Aspirin 81 MG TAB.CHEW PO SCH (08:12)
[2016-12-05] MEDS: *HR* Digoxin 0.125 MG TABLET PO SCH (08:12)
[2016-12-05] MEDS: Furosemide 40 MG TABLET PO SCH ×2 (08:12→20:01)
[2016-12-05] MEDS: Lisinopril 20 MG TABLET PO SCH (08:12)
[2016-12-05] MEDS ORDERED: Furosemide 40 MG TABLET PO SCH (09:00)
[2016-12-05] MEDS ORDERED: Vancomycin 1,250 MG in D5% in Water 250 ML IVPB SCH (09:00)
[2016-12-05] MEDS: Budesonide/Formoterol 160/4.5 MDI IH SCH ×2 (10:22→22:47)
[2016-12-05] MEDS: Tiotropium 18 MCG inhalation IH SCH (10:22)
--- NOTE | 2016-12-05 11:38 | Internal Med Progress Note ---
Date of Encounter: 12/05/16 Time of Encounter: 11:36 - Assessment and plan (1) Healthcare-associated pneumonia Current Visit: Yes Status: Acute Assessment and plan: Reviewed CT of Chest results - consistent with pneumonia both upper lobes Mostly bacterial PNA cont broad spec abx ZOsyn and Vanco held Levofloxaicn due to coumadin -worsening INR cont duoneb and O2 (2) Acute on chronic respiratory failure with hypoxemia Current Visit: Yes Status: Acute Assessment and plan: due to Pneumonia + CHF exacerbation cont duoneb and O2 try to wean him off the O2 as he tolerates Cont broad spec abx will give him short course of steroids (3) Systolic CHF, acute on chronic Current Visit: Yes Status: Acute Assessment and plan: Pt does have mild exacerbation heart failure reviewed 2 D echo from 10/09 - showing severe systolic CHF with EF -25 % BNP elevated will cont Lasix PO 40 BID - double the home dose strict I & O's resumed other home meds (4) HTN (hypertension) Current Visit: No Status: Acute Qualifiers: Hypertension type: essential hypertension Qualified Code(s): I10 - Essential (primary) hypertension (5) Supratherapeutic INR Current Visit: Yes Status: Acute Assessment and plan: worsened today mostly due to abx Levofloxacin d.c Levo cont holding coumadin (6) COPD (chronic obstructive pulmonary disease) Current Visit: No Status: Acute Assessment and plan: in mild exacerbation cont duoneb short course of steroids Qualifiers: Emphysema type: unspecified Qualified Code(s): J43.9 - Emphysema, unspecified (7) Atrial fibrillation Current Visit: Yes Status: Chronic Assessment and plan: not in RVR rate controlled in NSR cont Amiodarone, Digoxin, Metoprolol Qualifiers: Atrial fibrillation type: paroxysmal Qualified Code(s): I48.0 - Paroxysmal atrial fibrillation - Subjective Interval history: Mr. Bartlett is a 76 year old male with HTN, HLD, CAD, afib on coumadin, COPD, pacemaker/AICD, CHF presents to the ED with complaints of sudden onset of shortness of breath today. Patient reports today he suddenly became very short of breath. He has been having sweats on and off for the last week, and he reports wheezing. He denies any chills, fever, cough, headache or lightheadedness. He does reports diarrhea on and off for the last week as well. Patient was satting 76% on room air on presentation to the ED. Evaluation revealed elevated WBC of 14.1. BNP was elevated to 2075 with recent baseline of 1800. Pt denied any CP / SOB. He is still on 4 lit O2. No fever / chills - Constitutional Vitals: Temp Pulse Resp BP Pulse Ox 98.1 F 60 20 137/77 94 12/05/16 07:59 12/05/16 07:59 12/05/16 10:22 12/05/16 07:59 12/05/16 10:22 General appearance: Present: A&O X 3, pleasant, no acute distress - Head Head exam: Present: atraumatic, normal inspection - Respiratory Respiratory exam: Present: decreased breath sounds, respiratory distress (mild) , rhonchi, wheezes - Cardiovascular Cardiovascular exam: Present: RRR, +S1, +S2. Absent: systolic murmur - Extremities Exam Extremities exam: Absent: calf tenderness, pedal edema, tenderness - Neurological Exam Neurological exam: Present: alert, oriented X3 - Psychiatric Psychiatric exam: Present: normal affect, normal mood Internal Medicine: Result - Labs CBC & Chem 7: 12/05/16 05:12 12/05/16 05:12 Labs: Short CBC 12/05/16 Range/Units 05:12 WBC 10.3 (4.3-11.1) K/mcL Hgb 13.2 D (12.9-16.9) g/dL Hct 39.8 (37.5-50.1) % Plt Count 149 (140-400) K/mcL Neutrophils # 7.5 (1.6-8.9) K/mcL BMP 12/05/16 05:12 Sodium 141 Potassium 3.6 Chloride 105 Carbon Dioxide 30 H BUN 11 Creatinine 0.87 Glucose 81 Calcium 8.4 L Urine 12/05/16 Range/Units 01:45 Urine Color Yellow (Yellow) Urine Clarity Turbid A (Clear) Urine pH 6.5 (5.0-8.0) pH Units Ur Specific [place] 1.011 (1.010-1.025) Urine Protein Negative (Neg-Trace) mg/dL Urine Glucose (UA) Normal (Normal) mg/dL - ABG Interpretation ABG results: PT/INR, D-dimer PT 44.1 Seconds (9.4-12.1) H* 12/05/16 05:12 D-Dimer 463 ng/mLFEU (0-500) 12/04/16 15:25 Consult Discharge Plan - Plan Referrals: Jere Kay, DEEPA [Primary Care Provider] -
[2016-12-05] MEDS: MethylPREDNISolone 40 MG/ML VIAL IVP SCH ×2 (14:11→17:51)
--- NOTE | 2016-12-05 17:38 | Electrocardiograph Report ---
[place] [id number] Test Date: 2016-12-04 Pat Name: Rosendo Bartlett Department: 104 Room: [id number] Gender: M Manager Access: JULIET : 1940 Requested By: Phill Gillespie Order Number: [id number] Reading MD: Lacey Chow Measurements Intervals [place] Rate: 90 P: 61 VA: 194 QRS: 8 QRSD: 118 T: 121 QT: 355 QTc: 402 Interpretive Statements SINUS RHYTHM WITH OCCASIONAL VENTRICULAR PREMATURE COMPLEXES INTRAVENTRICULAR CONDUCTION DELAY ST DEVIATION AND MODERATE T-WAVE ABNORMALITY, CONSIDER LATERAL ISCHEMIA Electronically Signed On 12-05-2016 17:36:27 EDT by Lacey Chow
[2016-12-05] MEDS ORDERED: Warfarin perPT PO PRN (18:00)
[2016-12-05] MEDS ORDERED: Levofloxacin 750 MG/150 ML 750 MG/150 ML BAG IVPB SCH (18:00)
[2016-12-06] MEDS: Piperacillin/Tazobactam 3.375 GM in D5% in Water (Mini-Bag+) 100 ML IVPB SCH ×4 (00:03→23:58)
[2016-12-06] MEDS: MethylPREDNISolone 40 MG/ML VIAL IVP SCH (05:06)
[2016-12-06] MEDS: Vancomycin 1,250 MG in D5% in Water 250 ML IVPB SCH (05:06)
[2016-12-06] MEDS: Ipratropium/Albuterol Neb 3 ML IH SCH ×4 (05:09→22:32)
[2016-12-06 05:34] LABS: INR 3.2
[2016-12-06 05:38] LABS: BUN/Creatinine Ratio 15 (6-26); Blood Urea Nitrogen 16 mg/dL (8-26); Carbon Dioxide 32 mEq/L (19-29); Chloride 101 mEq/L (98-109); Glucose 194 mg/dL (70-99); Magnesium 1.7 mg/dL (1.6-2.6); Osmolality,Calculated 296 (280-300); Potassium 3.4 mEq/L (3.5-4.5); Sodium 140 mEq/L (136-145); eGFR For African Americans > 60 (> 60); eGFR For Non-African Americans > 60 (> 60)
[2016-12-06 06:46] LABS: Basophils % 0.2 %; Hematocrit 41.1 % (37.5-50.1); Hemoglobin 13.6 g/dL (12.9-16.9); Immature Granulocytes % 0.5 % (0-4); Lymphocytes # 1.2 K/mcL (0.6-4.6); Lymphocytes % 9.5 %; Mean Corpuscular HGB Conc 33.1 g/dL (31.6-35.5); Mean Corpuscular Hemoglobin 32.5 pg (28.0-33.3); Mean Corpuscular Volume 98.1 fL (83.0-100.0); Mean Platelet Volume 9.6 fL (9.4-12.4); Monocytes # 0.3 K/mcL (0.0-1.3); Monocytes % 2.4 %; Neutrophils # 11.2 K/mcL (1.6-8.9); Platelet Count 181 K/mcL (140-400); Red Blood Count 4.19 M/mcL (4.19-5.50); Red Cell Distribution Width 14.8 % (11.5-14.5); Segmented Neutrophils % 87.4 %
[2016-12-06] MEDS: Lisinopril 20 MG TABLET PO SCH (08:16)
[2016-12-06] MEDS: Aspirin 81 MG TAB.CHEW PO SCH (08:16)
[2016-12-06] MEDS: *HR* Amiodarone 200 MG TABLET PO SCH (08:16)
[2016-12-06] MEDS: Furosemide 40 MG TABLET PO SCH ×2 (08:17→16:08)
[2016-12-06] MEDS: *HR* Digoxin 0.125 MG TABLET PO SCH (08:17)
[2016-12-06] MEDS: Metoprolol XL (24 HR) Succ 25 MG TAB.ER.24H PO SCH (08:17)
[2016-12-06] MEDS ORDERED: Furosemide 40 MG TABLET PO SCH (09:00)
[2016-12-06] MEDS: Tiotropium 18 MCG inhalation IH SCH (11:28)
[2016-12-06] MEDS: Budesonide/Formoterol 160/4.5 MDI IH SCH ×2 (11:29→22:32)
--- NOTE | 2016-12-06 12:15 | Internal Med Progress Note ---
Date of Encounter: 12/06/16 Time of Encounter: 12:10 - Assessment and plan (1) Healthcare-associated pneumonia Current Visit: Yes Status: Acute Assessment and plan: Reviewed CT of Chest results - consistent with pneumonia both upper lobes Mostly bacterial PNA cont broad spec abx Zosyn and Vanco held Levofloxaicn due to coumadin -worsening INR cont duoneb and O2 (2) Acute on chronic respiratory failure with hypoxemia Current Visit: Yes Status: Acute Assessment and plan: due to Pneumonia + CHF exacerbation cont duoneb and O2 try to wean him off the O2 as he tolerates Cont broad spec abx will give him short course of steroids - switched to PO steroids today (3) Systolic CHF, acute on chronic Current Visit: Yes Status: Acute Assessment and plan: Pt does have mild exacerbation heart failure reviewed 2 D echo from 10/09 - showing severe systolic CHF with EF -25 % BNP improved will cont Lasix PO 40 BID for now- double the home dose strict I & O's resumed other home meds (4) HTN (hypertension) Current Visit: No Status: Acute Qualifiers: Hypertension type: essential hypertension Qualified Code(s): I10 - Essential (primary) hypertension (5) Supratherapeutic INR Current Visit: Yes Status: Acute Assessment and plan: worsened y/d mostly due to abx Levofloxacin d.c Levo trending down now cont holding coumadin (6) COPD (chronic obstructive pulmonary disease) Current Visit: No Status: Acute Assessment and plan: in mild exacerbation cont duoneb short course of steroids Qualifiers: Emphysema type: unspecified Qualified Code(s): J43.9 - Emphysema, unspecified (7) Atrial fibrillation Current Visit: Yes Status: Chronic Assessment and plan: not in RVR rate controlled in NSR cont Amiodarone, Digoxin, Metoprolol Qualifiers: Atrial fibrillation type: paroxysmal Qualified Code(s): I48.0 - Paroxysmal atrial fibrillation - Subjective Interval history: Mr. Bartlett is a 76 year old male with HTN, HLD, CAD, afib on Coumadin, COPD, pacemaker/AICD, CHF presents to the ED with complaints of sudden onset of shortness of breath today. Patient reports today he suddenly became very short of breath. He has been having sweats on and off for the last week, and he reports wheezing. He denies any chills, fever, cough, headache or lightheadedness. He does reports diarrhea on and off for the last week as well. Patient was satting 76% on room air on presentation to the ED. pt stated he is feeling little better now. He is off the O2, breathing comfortably on RA. Denied any CP. Still has some DOTSON and SOB. Cough + with no expectoration. - Constitutional Vitals: Temp Pulse Resp BP Pulse Ox 98.2 F 77 16 153/74 96 12/06/16 07:00 12/06/16 07:00 12/06/16 11:29 12/06/16 11:00 12/06/16 11:29 General appearance: Present: A&O X 3, pleasant, no acute distress - Head Head exam: Present: atraumatic, normal inspection - Neck Neck exam general surgery: Present: supple. Absent: thyromegaly - Respiratory Respiratory exam: Present: decreased breath sounds, rhonchi, wheezes. Absent: rales, respiratory distress - Cardiovascular Cardiovascular exam: Present: RRR, +S1, +S2. Absent: systolic murmur - GI/Abdominal GI/Abdominal exam: Present: normal bowel sounds, soft. Absent: rebound, rigid, tenderness - Extremities Exam Extremities exam: Present: pedal edema (trace). Absent: calf tenderness, tenderness - Neurological Exam Neurological exam: Present: alert, oriented X3 - Psychiatric Psychiatric exam: Present: normal affect, normal mood Internal Medicine: Result - Labs CBC & Chem 7: 12/06/16 05:05 12/06/16 05:05 Labs: Short CBC 12/06/16 Range/Units 05:05 WBC 12.8 H (4.3-11.1) K/mcL Hgb 13.6 (12.9-16.9) g/dL Hct 41.1 (37.5-50.1) % Plt Count 181 (140-400) K/mcL Neutrophils # 11.2 H (1.6-8.9) K/mcL BMP 12/06/16 05:05 Sodium 140 Potassium 3.4 L Chloride 101 Carbon Dioxide 32 H BUN 16 Creatinine 1.08 Glucose 194 H Calcium 9.0 - ABG Interpretation ABG results: PT/INR, D-dimer PT 36.0 Seconds (9.4-12.1) H 12/06/16 05:05 D-Dimer 463 ng/mLFEU (0-500) 12/04/16 15:25 Consult Discharge Plan - Plan Referrals: Jere Kay, DEEPA [Primary Care Provider] -
[2016-12-06] MEDS ORDERED: *HR* Warfarin 3 MG TABLET PO ONE (18:00)
[2016-12-06] MEDS ORDERED: Aminoglycoside Consult 1 EACH MC ONE (20:09)
[2016-12-06] MEDS: Acetaminophen 325 MG TABLET PO PRN (20:37)
[2016-12-07] MEDS: Ipratropium/Albuterol Neb 3 ML IH SCH ×3 (04:31→16:00)
[2016-12-07] MEDS: Vancomycin 1,250 MG in D5% in Water 250 ML IVPB SCH (05:49)
[2016-12-07 06:28] LABS: Basophils % 0.2 %; Hematocrit 40.4 % (37.5-50.1); Hemoglobin 13.4 g/dL (12.9-16.9); Immature Granulocytes % 0.7 % (0-4); Lymphocytes # 1.7 K/mcL (0.6-4.6); Mean Corpuscular HGB Conc 33.2 g/dL (31.6-35.5); Mean Corpuscular Hemoglobin 32.4 pg (28.0-33.3); Mean Corpuscular Volume 97.6 fL (83.0-100.0); Mean Platelet Volume 8.9 fL (9.4-12.4); Monocytes # 0.9 K/mcL (0.0-1.3); Monocytes % 5.1 %; Neutrophils # 15.6 K/mcL (1.6-8.9); Platelet Count 175 K/mcL (140-400); Red Blood Count 4.14 M/mcL (4.19-5.50); Red Cell Distribution Width 15.3 % (11.5-14.5)
[2016-12-07 06:30] LABS: INR 2.6; Prothrombin Time 28.8 Seconds (9.4-12.1)
[2016-12-07 06:38] LABS: BUN/Creatinine Ratio 20 (6-26); Blood Urea Nitrogen 20 mg/dL (8-26); Calcium 8.7 mg/dL (8.6-10.8); Carbon Dioxide 33 mEq/L (19-29); Chloride 102 mEq/L (98-109); Glucose 111 mg/dL (70-99); Osmolality,Calculated 297 (280-300); Potassium 2.9 mEq/L (3.5-4.5); Sodium 142 mEq/L (136-145); eGFR For African Americans > 60 (> 60); eGFR For Non-African Americans > 60 (> 60)
[2016-12-07] MEDS: Metoprolol XL (24 HR) Succ 25 MG TAB.ER.24H PO SCH (08:04)
[2016-12-07] MEDS: *HR* Amiodarone 200 MG TABLET PO SCH (08:04)
[2016-12-07] MEDS: Furosemide 40 MG TABLET PO SCH ×2 (08:04→17:53)
[2016-12-07] MEDS: Lisinopril 20 MG TABLET PO SCH (08:04)
[2016-12-07] MEDS: *HR* Digoxin 0.125 MG TABLET PO SCH (08:04)
[2016-12-07] MEDS: Piperacillin/Tazobactam 3.375 GM in D5% in Water (Mini-Bag+) 100 ML IVPB SCH ×2 (08:05→15:35)
[2016-12-07] MEDS: Aspirin 81 MG TAB.CHEW PO SCH (08:05)
[2016-12-07] MEDS ORDERED: predniSONE 20 MG TABLET PO SCH (09:00)
[2016-12-07] MEDS: Tiotropium 18 MCG inhalation IH SCH (11:22)
[2016-12-07] MEDS: Budesonide/Formoterol 160/4.5 MDI IH SCH (11:22)
[2016-12-07] MEDS: Acetaminophen 325 MG TABLET PO PRN (12:44)
[2016-12-07] MEDS ORDERED: Potassium Chloride 40 MEQ, Lidocaine 1% 2 ML in D5% in Water 500 ML IVPB ONE (14:38)
[2016-12-07 15:21] VITALS: BP 141/86
--- NOTE | 2016-12-07 15:54 | Discharge Summary ---
Date of Encounter: 12/07/16 Time of Encounter: 15:49 - Discharge Diagnosis (1) Severe chronic obstructive pulmonary disease Priority: Secondary Status: Acute (2) Healthcare-associated pneumonia Priority: Primary Status: Acute (3) Atrial fibrillation Priority: Secondary Status: Chronic Qualifiers: Atrial fibrillation type: paroxysmal Qualified Code(s): I48.0 - Paroxysmal atrial fibrillation (4) UTI (urinary tract infection) due to Enterococcus Priority: Secondary Status: Acute - Discharge Medications Prescriptions: Amoxicillin/Clavulanate [Augmentin] 875 mg PO BIDWM #20 tablet GuaiFENesin ER [Mucinex] 600 mg PO BID #20 tab Potassium Chloride [Klor-Con 10] 10 meq PO BID #10 tablet.er predniSONE [PredniSONE] 10 mg PO DAILY #28 tablet Home Medications: Allopurinol [Zyloprim 300 MG] 300 mg PO DAILY 12/01/15 [History] Aspirin 81 mg PO DAILY 12/01/15 [History] Furosemide [Lasix] 40 mg PO DAILY 12/01/15 [History] Lisinopril [Zestril] 20 mg PO DAILY 12/01/15 [History] Warfarin [Coumadin] 3 mg PO MOFR 12/01/15 [History] Albuterol Sulfate [Proair Hfa] 2 puff IH Q4H PRN 10/04/16 [History] Amiodarone [Cordarone] 200 mg PO DAILY 10/04/16 [History] Fluticasone/Salmeterol [Advair Hfa 115-21 Mcg Inhaler] 2 puff IH BID 10/04/16 [ History] Oxygen 2 l NS AD PRN 10/04/16 [History] Tramadol HCl [Ultram] 50 mg PO Q6H PRN 10/04/16 [History] Warfarin [Coumadin] 1.5 mg PO SUTUWETHSA 10/04/16 [History] Digoxin [Lanoxin] 0.125 mg PO DAILY #30 tablet 10/18/16 [Rx] Metoprolol XL (24 HR) Succ [Toprol Xl] 25 mg PO DAILY #30 tab.er.24h 10/18/16 [ Rx] Tiotropium [Spiriva] 18 mcg IH DAILYR #1 inh 10/18/16 [Rx] Amoxicillin/Clavulanate [Augmentin] 875 mg PO BIDWM #20 tablet 12/07/16 [Rx] GuaiFENesin ER [Mucinex] 600 mg PO BID #20 tab 12/07/16 [Rx] Potassium Chloride [Klor-Con 10] 10 meq PO BID #10 tablet.er 12/07/16 [Rx] predniSONE [PredniSONE] 10 mg PO DAILY #28 tablet 12/07/16 [Rx] Allergies/Adverse Reactions: Allergies No Known Allergies Allergy (Verified 12/04/16 16:21) Date of admission: 12/04/16 18:54 Primary care physician: Jere Kay CNP Consults: 12/04/16 19:59 Consult to Campaign Manager [CONS] Routine Reason for SW Consult: oxygen therapy at home Discharging clinician: Andre Lock Anticipated date of discharge: 12/07/16 - Patient Status Disposition: Home, Self-Care Condition: Fair Overall status at discharge: patient is progressing back to baseline - Discharge Instructions Instructions: Prednisone (By mouth), Potassium Chloride (By mouth), Guaifenesin (By mouth), Amoxicillin/Clavulanate Potassium (By mouth), Heart Failure (DC), Atrial Fibrillation (DC), Pacemaker (DC), Chronic Obstructive Pulmonary Disease (DC), Sepsis (DC), Chronic Hypertension (DC) Follow Up With: Jere Kay CNP [Primary Care Provider] - 12/14/16 1:00 pm - Diet and Activity Activity: resume usual activities as tolerated Diet: advance to your usual diet Hospital course: Mr. Bartlett is a 76 year old male with HTN, HLD, CAD, afib on Coumadin, COPD, pacemaker/AICD, CHF presents to the ED with complaints of sudden onset of shortness of breath . He was not diagnosed with COPD exacerbation and CHF. According to echocardiogram done in September 2016 his EF is 25%. He was diuresed with Lasix and started on antibiotics mainly vancomycin and Zosyn and nebulizer treatment as well as a steroid. He has improved. He is ambulatory without oxygen and his chest examination is clear. Patient had CT chest during this admission which showed bilateral pneumonia. His urine also showed enterococcus. - Time Spent with Patient Total time spent providing and/or coordinating discharge services: Greater than 30 minutes - Constitutional Vitals: Temp Pulse Resp BP Pulse Ox 97.6 F 93 18 141/86 96 12/07/16 15:00 12/07/16 15:00 08/15/17 15:00 12/07/16 15:00 12/07/16 15:00 General appearance: Present: A&O X 3, pleasant, no acute distress - Head Head exam: Present: atraumatic, normocephalic - Eye Eye exam: Present: PERRL, conjuntiva pink, sclera anicteric Pupils: Present: PERRL - Neck Neck exam general surgery: Present: supple, trachea midline. Absent: lymphadenopathy - Respiratory Respiratory exam: Present: CTAB. Absent: accessory muscle use, rales, rhonchi, wheezes - Cardiovascular Cardiovascular exam: Present: RRR, +S1, +S2. Absent: diastolic murmur, gallop, rubs, systolic murmur - GI/Abdominal GI/Abdominal exam: Present: normal bowel sounds, soft, no peritoneal signs. Absent: distended, tenderness - Extremities Exam Extremities exam: Present: warm, radial pulses palpable and symmetrical. Absent : calf tenderness, cyanotic, pedal edema - Neurological Exam Neurological exam: Present: CN II-XII intact, oriented X3, no focal deficits. Absent: pronater drift, facial droop, speech deficit - Skin Skin exam: Present: dry, intact
[2016-12-07] MEDS ORDERED: *HR* Warfarin 3 MG TABLET PO ONE (18:00)
[2016-12-07 19:45] LABS: BUN/Creatinine Ratio 18 (6-26); Blood Urea Nitrogen 23 mg/dL (8-26); Calcium 8.5 mg/dL (8.6-10.8); Carbon Dioxide 32 mEq/L (19-29); Chloride 100 mEq/L (98-109); Glucose 257 mg/dL (70-99); Osmolality,Calculated 302 (280-300); Potassium 3.8 mEq/L (3.5-4.5); Sodium 140 mEq/L (136-145); eGFR For African Americans > 60 (> 60); eGFR For Non-African Americans 55 (> 60)
== END 2016-12-07 20:10 | disposition home or self-care (01) | DRG 871 ==
LOC: EMEROO 15:09 → 2NENU 15:09
PROVIDERS: ADMIT Internal Medicine Endocrinology, Diabetes & Metabolism; ATTEND Internal Medicine

== ENCOUNTER 2020-10-21 10:38 | Inpatient (IN) ==
[2020-10-21] MEDS ORDERED: methylPREDNISolone 125 MG/2 ML VIAL IVP ONE (11:36)
[2020-10-21] MEDS ORDERED: Ipratropium/Albuterol Neb 3 ML IH ONE (11:36)
[2020-10-21] MEDS ORDERED: 0.9 % Sodium Chloride 1,000 ML IVC SCH ×2 (11:45→14:41)
[2020-10-21 12:17] LABS: Bilirubin,Urine Negative (Negative); Blood,Urine Negative (Negative); Clarity,Urine Clear (Clear); Color,Urine Yellow (Yellow); Glucose,Urine (UA) Normal (Normal); Ketones,Urine Negative (Negative); Leukocyte Esterase,Urine Negative (Negative); Nitrite,Urine Negative (Negative); PH,Urine 6.5 pH Units (5.0-8.0); Protein,Urine Trace mg/dL (Neg-Trace); Specific Gravity,Urine 1.013 (1.010-1.025)
[2020-10-21 12:21] LABS: Basophils % 0.2 %; Eosinophils % 0.2 %; Hematocrit 48.5 % (37.5-50.1); Hemoglobin 15.6 g/dL (12.9-16.9); Immature Granulocytes % 0.5 % (0-4); Lymphocytes # 1.1 K/mcL (0.6-4.6); Lymphocytes % 6.1 %; Mean Corpuscular HGB Conc 32.2 g/dL (31.6-35.5); Mean Corpuscular Hemoglobin 34.1 pg (28.0-33.3); Mean Corpuscular Volume 105.9 fL (83.0-100.0); Mean Platelet Volume 9.9 fL (9.4-12.4); Monocytes # 1.5 K/mcL (0.0-1.3); Monocytes % 8.7 %; Neutrophils # 14.6 K/mcL (1.6-8.9); Platelet Count 180 K/mcL (140-400); Red Blood Count 4.58 M/mcL (4.19-5.50); Red Cell Distribution Width 13.6 % (11.5-14.5); Segmented Neutrophils % 84.3 %; White Blood Count 17.3 K/mcL (4.3-11.1)
[2020-10-21 12:39] LABS: VBG HCO3 28 mEq/L (21-27); VBG PCO2 45 mmHg (41-51); VBG PO2 107 mmHg (25-50)
[2020-10-21 12:43] LABS: Amphetamine Screen,Urine Negative ng/mL (Cutoff=1000); Barbiturate Screen,Urine Negative ng/mL (Cutoff=200); Benzodiazepines Screen,Urine Negative ng/mL (Cutoff=200); Cannabinoid Screen,Urine Negative ng/mL (Cutoff = 50); Cocaine Screen,Urine Negative ng/mL (Cutoff= 300); Opiate Screen,Urine Negative ng/mL (Cutoff=300); Phencyclidine Screen,Urine Negative ng/mL (Cutoff=25)
[2020-10-21 12:45] LABS: INR 2.2; Prothrombin Time 24.8 Seconds (9.4-12.1)
[2020-10-21 12:48] LABS: Activated Partial Thrombo Time 33.6 Seconds (26.0-36.0)
[2020-10-21 13:00] LABS: Alanine Aminotransferase 18 Units/L (7-52); Albumin 3.8 g/dL (3.5-5.7); Albumin/Globulin Ratio 1.2 (1.1-2.2); Alkaline Phosphatase 92 Units/L (34-104); Aspartate Amino Transferase 22 Units/L (13-39); BUN/Creatinine Ratio 24 (6-26); Bilirubin,Direct 0.4 mg/dL (0.0-0.2); Bilirubin,Indirect 0.7 mg/dL (0.0-1.0); Bilirubin,Total 1.1 mg/dL (0.3-1.0); Blood Urea Nitrogen 30 mg/dL (8-23); Calcium 9.1 mg/dL (8.6-10.3); Carbon Dioxide 32 mEq/L (23-29); Chloride 104 mEq/L (98-107); Creatine Kinase 62 Units/L (30-223); Ethanol < 10 mg/dL (Less than 10); Globulin 3.1 g/dL (2.4-3.5); Glucose 114 mg/dL (70-105); Osmolality,Calculated 301 (280-300); Potassium 4.5 mEq/L (3.5-5.1); Sodium 142 mEq/L (136-145); Thyroid Stimulating Hormone 0.595 mcIU/mL (0.340-5.600); Total Protein 6.9 g/dL (6.4-8.9); Troponin I 0.04 ng/mL (< 0.04); eGFR For African Americans > 60 (> 60); eGFR For Non-African Americans 56 (> 60)
[2020-10-21] MEDS ORDERED: Aspirin 81 MG TAB.CHEW PO STA (13:06)
[2020-10-21] MEDS ORDERED: Naloxone 0.4 MG/ML INJ IVP PRN (13:45)
[2020-10-21] MEDS ORDERED: Isovue-370 500 ML BOTTLE IVP ONE (14:30)
[2020-10-21] MEDS: Ipratropium/Albuterol Neb 3 ML IH SCH ×2 (15:56→20:28)
[2020-10-21] MEDS: Piperacillin/Tazobactam 3.375 GM in 0.9 % Sodium Chloride Mini Bag 100 ML IVPB SCH ×2 (16:34→17:17)
[2020-10-21] MEDS: Vancomycin 1,250 MG/262.5 ML IV.SOLN IVPB SCH (17:46)
[2020-10-21] MEDS: Apixaban 5 MG TABLET PO SCH (20:57)
[2020-10-22] MEDS: Piperacillin/Tazobactam 3.375 GM in 0.9 % Sodium Chloride Mini Bag 100 ML IVPB SCH ×3 (00:21→15:19)
[2020-10-22] MEDS: Ipratropium/Albuterol Neb 3 ML IH SCH ×6 (00:41→19:59)
[2020-10-22 02:33] LABS: Basophils % 0.1 %; Hematocrit 42.5 % (37.5-50.1); Immature Granulocytes % 0.7 % (0-4); Lymphocytes # 0.3 K/mcL (0.6-4.6); Lymphocytes % 2.5 %; Mean Corpuscular HGB Conc 32.7 g/dL (31.6-35.5); Mean Corpuscular Hemoglobin 34.7 pg (28.0-33.3); Mean Platelet Volume 9.4 fL (9.4-12.4); Monocytes # 0.3 K/mcL (0.0-1.3); Monocytes % 2.4 %; Neutrophils # 13.1 K/mcL (1.6-8.9); Platelet Count 171 K/mcL (140-400); Red Blood Count 4.01 M/mcL (4.19-5.50); Red Cell Distribution Width 13.4 % (11.5-14.5); Segmented Neutrophils % 94.3 %; White Blood Count 13.8 K/mcL (4.3-11.1)
[2020-10-22 02:34] LABS: Hemoglobin 13.9 g/dL (12.9-16.9)
[2020-10-22] MEDS ORDERED: Albumin 25% 25gram/100mL 25 GM/100 ML IV.SOLN IVPB ONE (02:43)
[2020-10-22 02:52] LABS: Calcium 8.6 mg/dL (8.6-10.3); Magnesium 2.3 mg/dL (1.6-2.6); Phosphorous 2.9 mg/dL (2.7-4.5); Potassium 4.5 mEq/L (3.5-5.1)
[2020-10-22] MEDS: Apixaban 5 MG TABLET PO SCH ×2 (08:54→19:44)
[2020-10-22] MEDS: *HR* Amiodarone 200 MG TABLET PO SCH (10:32)
[2020-10-22] MEDS: Vancomycin 1,250 MG/262.5 ML IV.SOLN IVPB SCH (17:35)
[2020-10-22] MEDS: QUEtiapine Fumarate 25 MG TABLET PO PRN (19:44)
[2020-10-22] MEDS: hydrALAZINE 25 MG TABLET PO SCH (19:52)
[2020-10-22 20:03] LABS: Adenovirus Not Detected (Not Detect); Bordetella Pertussis Not Detected (Not Detect); Chlamydophila pneumoniae Not Detected (Not Detect); Coronavirus 229E Not Detected (Not Detect); Coronavirus HKU1 Not Detected (Not Detect); Coronavirus NL63 Not Detected (Not Detect); Coronavirus OC43 Not Detected (Not Detect); Human Metapneumovirus Not Detected (Not Detect); Human Rhinovirus/Enterovirus Not Detected (Not Detect); Influenza A Subtype 2009 H1 Not Detected (Not Detect); Influenza B Not Detected (Not Detect); Mycoplasma pneumoniae Not Detected (Not Detect); Parainfluenza Virus 1 Not Detected (Not Detect); Parainfluenza Virus 2 Not Detected (Not Detect); Parainfluenza Virus 3 Not Detected (Not Detect); Parainfluenza Virus 4 Not Detected (Not Detect); Respiratory Syncytial Virus Not Detected (Not Detect); SARS-CoV-2 Not Detected (Not Detect)
[2020-10-23] MEDS: Ipratropium/Albuterol Neb 3 ML IH SCH ×7 (00:01→23:44)
[2020-10-23 00:42] LABS: ABG Base Excess 3 mEq/L (-2 to 3); ABG HCO3 32 mEq/L (21-27); ABG Oxygen Saturation 95 % (95-98); ABG PCO2 63 mmHg (35-45); ABG PH 7.31 pH Units (7.32-7.45); ABG PO2 84 mmHg (85-104); ABG TCO2 34 mEq/L (20-26); Blood Gas Pressure Support 6 cm H2O
[2020-10-23] MEDS: Piperacillin/Tazobactam 3.375 GM in 0.9 % Sodium Chloride Mini Bag 100 ML IVPB SCH ×4 (03:02→23:42)
[2020-10-23 04:42] LABS: VBG HCO3 33 mEq/L (21-27); VBG PCO2 78 mmHg (41-51); VBG PH 7.24 pH Units (7.32-7.42); VBG PO2 56 mmHg (25-50)
[2020-10-23 04:47] LABS: Basophils % 0.1 %; Red Cell Distribution Width 13.5 % (11.5-14.5)
[2020-10-23 04:48] LABS: Hemoglobin 14.4 g/dL (12.9-16.9); Immature Granulocytes % 0.7 % (0-4); Lymphocytes # 1.1 K/mcL (0.6-4.6); Lymphocytes % 4.5 %; Mean Corpuscular Hemoglobin 34.7 pg (28.0-33.3); Mean Corpuscular Volume 108.4 fL (83.0-100.0); Mean Platelet Volume 9.7 fL (9.4-12.4); Monocytes # 1.5 K/mcL (0.0-1.3); Monocytes % 6.1 %; Platelet Count 197 K/mcL (140-400); Red Blood Count 4.15 M/mcL (4.19-5.50); Segmented Neutrophils % 88.6 %
[2020-10-23 04:51] LABS: Neutrophils # 22.2 K/mcL (1.6-8.9)
[2020-10-23 04:52] LABS: Calcium 8.8 mg/dL (8.6-10.3); Magnesium 2.6 mg/dL (1.6-2.6); Potassium 4.6 mEq/L (3.5-5.1)
[2020-10-23] MEDS: *HR* Amiodarone 200 MG TABLET PO SCH (08:50)
[2020-10-23] MEDS: Metoprolol XL (24 HR) Succ 50 MG TAB.ER.24H PO SCH (08:50)
[2020-10-23] MEDS: Apixaban 5 MG TABLET PO SCH ×2 (08:50→21:14)
[2020-10-23] MEDS: hydrALAZINE 25 MG TABLET PO SCH ×2 (08:50→21:23)
[2020-10-23] MEDS: Aspirin 81 MG TAB.CHEW PO SCH (08:51)
[2020-10-23] MEDS: allopurinoL 300 MG TABLET PO SCH (08:51)
[2020-10-23] MEDS ORDERED: Sacubitril/Valsartan 97/103 MG 1 TAB TABLET PO SCH (09:00)
[2020-10-23] MEDS ORDERED: *HR* LORazepam 2 MG/ML VIAL IVP ONE (09:04)
[2020-10-23] MEDS: Fluticasone Propionate Nasal 50 MCG/SPRAY BOTTLE NS SCH (09:21)
[2020-10-23] MEDS: Doxycycline 100 MG in 0.9 % Sodium Chloride Mini Bag 100 ML IVPB SCH ×2 (10:28→17:30)
[2020-10-23] MEDS: D5% in 0.45% NACL 1,000 ML IVC SCH (10:31)
[2020-10-23] MEDS ORDERED: 0.9 % Sodium Chloride 1,000 ML IVC ONE (13:58)
[2020-10-23] MEDS ORDERED: 0.9 % Sodium Chloride 1,000 ML ONE (14:01)
[2020-10-23 14:16] LABS: Calcium 8.3 mg/dL (8.6-10.3); Potassium 4.3 mEq/L (3.5-5.1)
[2020-10-23 15:42] LABS: ABG Base Excess 3 mEq/L (-2 to 3); ABG HCO3 31 mEq/L (21-27); ABG Oxygen Saturation 96 % (95-98); ABG PCO2 63 mmHg (35-45); ABG PO2 92 mmHg (85-104); ABG TCO2 33 mEq/L (20-26)
[2020-10-24] MEDS: D5% in 0.45% NACL 1,000 ML IVC SCH (00:30)
[2020-10-24] MEDS: Ipratropium/Albuterol Neb 3 ML IH SCH ×5 (04:01→19:52)
[2020-10-24] MEDS: Doxycycline 100 MG in 0.9 % Sodium Chloride Mini Bag 100 ML IVPB SCH ×2 (05:48→17:28)
[2020-10-24 06:01] LABS: VBG HCO3 31 mEq/L (21-27); VBG PCO2 70 mmHg (41-51); VBG PH 7.26 pH Units (7.32-7.42); VBG PO2 32 mmHg (25-50)
[2020-10-24 06:03] LABS: Basophils % 0.1 %; Eosinophils % 0.1 %; Hematocrit 42.9 % (37.5-50.1); Hemoglobin 13.3 g/dL (12.9-16.9); Immature Granulocytes % 0.7 % (0-4); Lymphocytes # 0.4 K/mcL (0.6-4.6); Lymphocytes % 2.9 %; Mean Corpuscular Hemoglobin 34.9 pg (28.0-33.3); Mean Corpuscular Volume 112.6 fL (83.0-100.0); Mean Platelet Volume 9.6 fL (9.4-12.4); Monocytes % 7.5 %; Neutrophils # 12.2 K/mcL (1.6-8.9); Platelet Count 153 K/mcL (140-400); Red Blood Count 3.81 M/mcL (4.19-5.50); Red Cell Distribution Width 13.7 % (11.5-14.5); Segmented Neutrophils % 88.7 %; White Blood Count 13.7 K/mcL (4.3-11.1)
[2020-10-24 06:14] LABS: Calcium 8.4 mg/dL (8.6-10.3); Magnesium 2.5 mg/dL (1.6-2.6); Potassium 4.5 mEq/L (3.5-5.1)
[2020-10-24 06:30] LABS: Platelet Estimate Normal (Normal)
[2020-10-24] MEDS: Apixaban 5 MG TABLET PO SCH ×2 (07:40→21:25)
[2020-10-24] MEDS: Piperacillin/Tazobactam 3.375 GM in 0.9 % Sodium Chloride Mini Bag 100 ML IVPB SCH ×2 (07:40→17:28)
[2020-10-24] MEDS: *HR* Amiodarone 200 MG TABLET PO SCH (07:40)
[2020-10-24] MEDS: Aspirin 81 MG TAB.CHEW PO SCH (07:40)
[2020-10-24] MEDS: Metoprolol XL (24 HR) Succ 50 MG TAB.ER.24H PO SCH (07:40)
[2020-10-24] MEDS: hydrALAZINE 25 MG TABLET PO SCH ×2 (07:40→21:26)
[2020-10-24] MEDS: allopurinoL 300 MG TABLET PO SCH (07:47)
[2020-10-24] MEDS: Fluticasone Propionate Nasal 50 MCG/SPRAY BOTTLE NS SCH (07:48)
[2020-10-25] MEDS: Ipratropium/Albuterol Neb 3 ML IH SCH ×7 (00:10→23:55)
[2020-10-25] MEDS: Piperacillin/Tazobactam 3.375 GM in 0.9 % Sodium Chloride Mini Bag 100 ML IVPB SCH ×3 (00:24→15:39)
[2020-10-25] MEDS: Doxycycline 100 MG in 0.9 % Sodium Chloride Mini Bag 100 ML IVPB SCH ×2 (05:32→17:07)
[2020-10-25] MEDS: Aspirin 81 MG TAB.CHEW PO SCH (07:47)
[2020-10-25] MEDS: Apixaban 5 MG TABLET PO SCH ×2 (07:47→20:20)
[2020-10-25] MEDS: *HR* Amiodarone 200 MG TABLET PO SCH (07:47)
[2020-10-25] MEDS: allopurinoL 300 MG TABLET PO SCH (07:47)
[2020-10-25] MEDS: hydrALAZINE 25 MG TABLET PO SCH ×2 (07:47→20:20)
[2020-10-25] MEDS: Metoprolol XL (24 HR) Succ 50 MG TAB.ER.24H PO SCH (07:47)
[2020-10-25] MEDS: Fluticasone Propionate Nasal 50 MCG/SPRAY BOTTLE NS SCH (07:48)
[2020-10-25 09:32] LABS: Basophils % 0.1 %; Eosinophils # 0.1 K/mcL (0.0-0.6); Eosinophils % 0.6 %; Hematocrit 45.5 % (37.5-50.1); Hemoglobin 13.9 g/dL (12.9-16.9); Immature Granulocytes % 0.5 % (0-4); Lymphocytes # 0.8 K/mcL (0.6-4.6); Lymphocytes % 8.3 %; Mean Corpuscular HGB Conc 30.5 g/dL (31.6-35.5); Mean Corpuscular Hemoglobin 34.2 pg (28.0-33.3); Mean Corpuscular Volume 111.8 fL (83.0-100.0); Mean Platelet Volume 9.7 fL (9.4-12.4); Monocytes # 0.7 K/mcL (0.0-1.3); Monocytes % 7.3 %; Platelet Count 144 K/mcL (140-400); Red Blood Count 4.07 M/mcL (4.19-5.50); Red Cell Distribution Width 13.5 % (11.5-14.5); Segmented Neutrophils % 83.2 %; White Blood Count 9.6 K/mcL (4.3-11.1)
[2020-10-25 09:42] LABS: VBG HCO3 30 mEq/L (21-27); VBG PCO2 55 mmHg (41-51); VBG PH 7.34 pH Units (7.32-7.42); VBG PO2 69 mmHg (25-50)
[2020-10-25 09:46] LABS: BUN/Creatinine Ratio 25 (6-26); Blood Urea Nitrogen 31 mg/dL (8-23); Calcium 8.9 mg/dL (8.6-10.3); Carbon Dioxide 29 mEq/L (23-29); Chloride 113 mEq/L (98-107); Glucose 130 mg/dL (70-105); Magnesium 2.3 mg/dL (1.6-2.6); Osmolality,Calculated 308 (280-300); Potassium 4.9 mEq/L (3.5-5.1); Sodium 145 mEq/L (136-145); eGFR For African Americans > 60 (> 60); eGFR For Non-African Americans 56 (> 60)
[2020-10-25 09:55] LABS: Anisocytosis 1+ (Not Present); Macrocytosis Present (Not Present); Platelet Estimate Normal (Normal)
[2020-10-25] MEDS: Lactobacillus 1 EACH CAP.SPRINK PO SCH (20:20)
[2020-10-25] MEDS: Doxycycline 100 MG CAPSULE PO SCH (20:20)
[2020-10-26] MEDS: Ipratropium/Albuterol Neb 3 ML IH SCH ×5 (03:40→20:34)
[2020-10-26] MEDS: QUEtiapine Fumarate 25 MG TABLET PO PRN (03:43)
[2020-10-26 04:49] LABS: VBG HCO3 29 mEq/L (21-27); VBG PCO2 48 mmHg (41-51); VBG PH 7.39 pH Units (7.32-7.42); VBG PO2 189 mmHg (25-50)
[2020-10-26 04:50] LABS: Basophils % 0.1 %; Eosinophils # 0.1 K/mcL (0.0-0.6); Eosinophils % 1.4 %; Hematocrit 42.6 % (37.5-50.1); Hemoglobin 13.4 g/dL (12.9-16.9); Immature Granulocytes % 0.5 % (0-4); Lymphocytes # 0.8 K/mcL (0.6-4.6); Mean Corpuscular HGB Conc 31.5 g/dL (31.6-35.5); Mean Corpuscular Hemoglobin 34.8 pg (28.0-33.3); Mean Corpuscular Volume 110.6 fL (83.0-100.0); Mean Platelet Volume 9.7 fL (9.4-12.4); Monocytes # 0.5 K/mcL (0.0-1.3); Monocytes % 6.8 %; Neutrophils # 6.3 K/mcL (1.6-8.9); Platelet Count 144 K/mcL (140-400); Red Blood Count 3.85 M/mcL (4.19-5.50); Red Cell Distribution Width 13.2 % (11.5-14.5); Segmented Neutrophils % 81.2 %; White Blood Count 7.8 K/mcL (4.3-11.1)
[2020-10-26 05:04] LABS: BUN/Creatinine Ratio 22 (6-26); Blood Urea Nitrogen 26 mg/dL (8-23); Calcium 8.8 mg/dL (8.6-10.3); Carbon Dioxide 27 mEq/L (23-29); Chloride 113 mEq/L (98-107); Glucose 93 mg/dL (70-105); Magnesium 2.4 mg/dL (1.6-2.6); Osmolality,Calculated 306 (280-300); Potassium 4.7 mEq/L (3.5-5.1); Sodium 146 mEq/L (136-145); eGFR For African Americans > 60 (> 60); eGFR For Non-African Americans > 60 (> 60)
[2020-10-26] MEDS ORDERED: *HR* Dextrose 50 % in Water (Syg) 50 ML SYRINGE IVP ONE (07:20)
[2020-10-26 07:30] LABS: ABG Base Excess 4 mEq/L (-2 to 3); ABG HCO3 33 mEq/L (21-27); ABG Oxygen Saturation 100 % (95-98); ABG PCO2 73 mmHg (35-45); ABG PH 7.26 pH Units (7.32-7.45); ABG PO2 387 mmHg (85-104); ABG TCO2 35 mEq/L (20-26)
[2020-10-26] MEDS: Doxycycline 100 MG CAPSULE PO SCH ×2 (10:34→21:10)
[2020-10-26] MEDS: Metoprolol XL (24 HR) Succ 50 MG TAB.ER.24H PO SCH (10:34)
[2020-10-26] MEDS: allopurinoL 300 MG TABLET PO SCH (10:34)
[2020-10-26] MEDS: hydrALAZINE 25 MG TABLET PO SCH ×2 (10:35→21:10)
[2020-10-26] MEDS: *HR* Amiodarone 200 MG TABLET PO SCH (10:35)
[2020-10-26] MEDS: Fluticasone Propionate Nasal 50 MCG/SPRAY BOTTLE NS SCH (10:35)
[2020-10-26] MEDS: Aspirin 81 MG TAB.CHEW PO SCH (10:35)
[2020-10-26] MEDS: Apixaban 5 MG TABLET PO SCH ×2 (10:35→21:10)
[2020-10-26] MEDS: Lactobacillus 1 EACH CAP.SPRINK PO SCH ×2 (10:35→21:10)
[2020-10-26] MEDS ORDERED: Perflutren Lipid Microsphere 1.3 ML in 0.9 % Sodium Chloride 8.7 ML IVP PRN (10:38)
[2020-10-26 14:29] LABS: BUN/Creatinine Ratio 21 (6-26); Blood Urea Nitrogen 24 mg/dL (8-23); Calcium 8.8 mg/dL (8.6-10.3); Carbon Dioxide 31 mEq/L (23-29); Chloride 111 mEq/L (98-107); Glucose 139 mg/dL (70-105); Osmolality,Calculated 308 (280-300); Potassium 4.6 mEq/L (3.5-5.1); Sodium 146 mEq/L (136-145); eGFR For African Americans > 60 (> 60); eGFR For Non-African Americans > 60 (> 60)
[2020-10-26] MEDS ORDERED: D5% in 0.45% NACL 1,000 ML IVC SCH (15:15)
[2020-10-27] MEDS: Ipratropium/Albuterol Neb 3 ML IH SCH ×5 (00:27→15:33)
[2020-10-27 06:12] LABS: VBG HCO3 28 mEq/L (21-27); VBG PCO2 50 mmHg (41-51); VBG PH 7.36 pH Units (7.32-7.42); VBG PO2 71 mmHg (25-50)
[2020-10-27 06:12] LABS: Basophils % 0.1 %; Eosinophils # 0.1 K/mcL (0.0-0.6); Eosinophils % 1.5 %; Hematocrit 39.7 % (37.5-50.1); Hemoglobin 12.2 g/dL (12.9-16.9); Immature Granulocytes % 0.3 % (0-4); Lymphocytes # 0.9 K/mcL (0.6-4.6); Lymphocytes % 11.9 %; Mean Corpuscular HGB Conc 30.7 g/dL (31.6-35.5); Mean Corpuscular Hemoglobin 33.8 pg (28.0-33.3); Mean Platelet Volume 9.9 fL (9.4-12.4); Monocytes # 0.5 K/mcL (0.0-1.3); Monocytes % 7.4 %; Neutrophils # 5.6 K/mcL (1.6-8.9); Platelet Count 161 K/mcL (140-400); Red Blood Count 3.61 M/mcL (4.19-5.50); Red Cell Distribution Width 13.2 % (11.5-14.5); Segmented Neutrophils % 78.8 %; White Blood Count 7.2 K/mcL (4.3-11.1)
[2020-10-27 06:29] LABS: BUN/Creatinine Ratio 22 (6-26); Blood Urea Nitrogen 24 mg/dL (8-23); Calcium 8.8 mg/dL (8.6-10.3); Carbon Dioxide 30 mEq/L (23-29); Chloride 112 mEq/L (98-107); Glucose 91 mg/dL (70-105); Magnesium 2.2 mg/dL (1.6-2.6); Osmolality,Calculated 300 (280-300); Potassium 4.6 mEq/L (3.5-5.1); Sodium 143 mEq/L (136-145); eGFR For African Americans > 60 (> 60); eGFR For Non-African Americans > 60 (> 60)
[2020-10-27] MEDS: Aspirin 81 MG TAB.CHEW PO SCH (08:16)
[2020-10-27] MEDS: hydrALAZINE 25 MG TABLET PO SCH (08:17)
[2020-10-27] MEDS: Metoprolol XL (24 HR) Succ 50 MG TAB.ER.24H PO SCH (08:17)
[2020-10-27] MEDS: *HR* Amiodarone 200 MG TABLET PO SCH (08:17)
[2020-10-27] MEDS: Doxycycline 100 MG CAPSULE PO SCH (08:17)
[2020-10-27] MEDS: Apixaban 5 MG TABLET PO SCH (08:17)
[2020-10-27] MEDS: allopurinoL 300 MG TABLET PO SCH (08:17)
[2020-10-27] MEDS: Lactobacillus 1 EACH CAP.SPRINK PO SCH (08:17)
[2020-10-27] MEDS: Fluticasone Propionate Nasal 50 MCG/SPRAY BOTTLE NS SCH (10:06)
[2020-10-27] MEDS ORDERED: Haloperidol Lactate 5 MG/ML VIAL IVP PRN (15:43)
[2020-10-27] MEDS: *HR* LORazepam 2 MG/ML VIAL IVP PRN (15:50)
[2020-10-27] MEDS: Morphine Sulfate 2 MG/ML SYRINGE IVP PRN (18:30)
[2020-10-27] MEDS ORDERED: Sacubitril/Valsartan 49/51 MG 1 TABLET PO SCH (21:00)
[2020-10-28] MEDS: *HR* LORazepam 2 MG/ML VIAL IVP PRN (00:27)
[2020-10-28] MEDS: Morphine Sulfate 2 MG/ML SYRINGE IVP PRN ×2 (05:31→09:07)
[2020-10-28 08:13] VITALS: BP 111/64
[2020-10-28] MEDS ORDERED: *HR* LORazepam 2 MG/ML VIAL IVP PRN (09:50)
[2020-10-28] MEDS ORDERED: Morphine Sulfate 2 MG/ML SYRINGE IVP PRN (09:50)
[2020-10-28] MEDS ORDERED: Morphine Sulfate 2 MG/ML SYRINGE IVP SCH (10:00)
[2020-10-28] MEDS ORDERED: *HR* LORazepam 2 MG/ML VIAL IVP SCH (12:00)
== END 2020-10-28 10:20 | disposition hospice, inpatient (51) | DRG 871 ==
LOC: 3ANU 10:38 → EMEROOARM 10:38 → SUATTDRO 14:12 → 3ANU 15:24 → 2ANU 10-27 16:27
PROVIDERS: ADMIT Internal Medicine; ATTEND Pharmacist

== ENCOUNTER 2020-10-28 10:02 | Inpatient (IN) ==
[2020-10-28] MEDS ORDERED: Morphine Sulfate 2 MG/ML SYRINGE IVP PRN (10:41)
[2020-10-28] MEDS ORDERED: *HR* LORazepam 2 MG/ML VIAL IVP PRN (10:42)
[2020-10-28] MEDS ORDERED: Haloperidol Lactate 5 MG/ML VIAL IVP PRN (10:42)
[2020-10-28] MEDS ORDERED: Bisacodyl 10 MG RECTAL SUPPOSITORY RC PRN (10:42)
[2020-10-28] MEDS: *HR* LORazepam 2 MG/ML VIAL IVP SCH ×4 (12:01→23:53)
[2020-10-28] MEDS: Atropine 1% Opth Drops 100 DROP/5 ML BOTTLE SL PRN ×4 (12:01→19:54)
[2020-10-28] MEDS: Morphine Sulfate 2 MG/ML SYRINGE IVP SCH ×4 (14:05→23:53)
[2020-10-29] MEDS: Morphine Sulfate 2 MG/ML SYRINGE IVP SCH ×3 (03:52→11:53)
[2020-10-29] MEDS: *HR* LORazepam 2 MG/ML VIAL IVP SCH ×3 (03:52→11:52)
[2020-10-29 06:51] VITALS: BP 65/41
[2020-10-29] MEDS: Atropine 1% Opth Drops 100 DROP/5 ML BOTTLE SL PRN (07:55)
== END 2020-10-29 16:55 | disposition expired | DRG 951 ==
LOC: 2ANU 10:22
PROVIDERS: ADMIT Internal Medicine Hospice and Palliative Medicine; ATTEND Internal Medicine Hospice and Palliative Medicine